=== PATIENT | female | born 1960 | race Caucasian/White ===

== ENCOUNTER 2019-06-14 14:55 | Outpatient (CLI) | payer MEDICARE, MEDICAID, SELFPAY ==
[2019-06-14 16:11] LABS: Add Urine Microscopic? NO; Appearance Urine Clear (Clear); Bilirubin Urine Negative (Negative); Blood Urine Negative (Negative); Color Urine Straw (Yellow); Glucose Urine UA Negative (Negative); Ketones Urine Negative (Negative); Leukocyte Esterase Ur Negative LEU/UL (Negative); Nitrate Urine Negative (Negative); Protein Urine Negative (Negative); Specific Grav Ur 1.008 (1.001-1.035); Urobilinogen Urine Negative mg/dL (<2.0)
== END 2019-06-14 14:56 | disposition home or self-care (01) ==
LOC: ANHLAB 15:02
PROVIDERS: PCP Internal Medicine; Visit Provider Nurse Practitioner
DX: R30.0 Dysuria (principal)
CPT/HCPCS: 81003

== ENCOUNTER 2019-08-09 17:01 | Outpatient (CLI) | payer MEDICARE, MEDICAID, SELFPAY ==
[2019-08-09 18:30] LABS: Amphetamine Screen Urine Negative (Negative); Barbiturate Screen Urine Negative (Negative); Benzodiazepines Screen Urine Negative (Negative); Cannabinoid Screen Urine Negative (Negative); Cocaine Screen Urine Negative (Negative); Methadone Screen Urine Negative (Negative); Opiate Screen Urine Positive (Negative); Phencyclidine Screen Urine Negative (Negative)
== END 2019-08-09 17:02 | disposition home or self-care (01) ==
PROVIDERS: PCP Internal Medicine; Visit Provider Nurse Practitioner
DX: Z79.899 Other long term (current) drug therapy (principal)
CPT/HCPCS: 80307

== ENCOUNTER 2019-09-13 14:10 | Outpatient (CLI) | payer MEDICARE, MEDICAID, SELFPAY ==
--- NOTE | ~2019-09-13 | US_ITS ---
EXAMINATION: US arterial ankle brachial ind DATE: 09/13/2019 15:03 INDICATION: Vomiting and tingling, pain and atrophic change of the lower extremities. Smoker. TECHNIQUE: Segmental pressures and plethysmographic and Doppler waveforms of the brachial and lower e xtremity arteries were obtained. COMPARISON: None. FINDINGS: Right and left brachial artery pressures of 109 mm Hg and 101 mm Hg, respectively, are concordant (no rmal difference <= 30 mmHg). The right ankle-brachial index (DARLEEN) is 1.13 (normal >= 0.9-1.0). The right great toe-brachial index (TBI) is 1.03 (normal >= 0.65). Arterial Doppler waveforms are biphasic. The left DARLEEN is 1.29. The left TBI is 0.88. Arterial Doppler waveforms are biphasic. IMPRESSION: Bilateral normal DARLEEN and TBI Reviewed, dictated and finalized at [facility]. Reviewed, dictated and finalized at location B.
== END 2019-09-13 14:11 | disposition home or self-care (01) ==
LOC: ANHIMG 14:12
PROVIDERS: PCP Internal Medicine; Visit Provider Nurse Practitioner
DX: R09.89 Other specified symptoms and signs involving the circulatory and respiratory systems (principal)
CPT/HCPCS: 93922

== ENCOUNTER 2020-02-06 06:54 | Outpatient (NON) | payer MEDICARE, MEDICAID, SELFPAY ==
[2020-02-06 22:31] LABS: SARS-CoV-2 RNA PCR Negative
== END 2020-02-06 06:55 ==
LOC: ANHCOVIDDT 07:03
PROVIDERS: PCP Internal Medicine; Visit Provider Nurse Practitioner
DX: R05 Cough (principal); Z20.828 Contact with and (suspected) exposure to other viral communicable diseases
CPT/HCPCS: 87635; C9803; U0003

== ENCOUNTER 2020-03-07 12:25 | Outpatient (CLI) | payer MEDICARE, MEDICAID, SELFPAY ==
--- NOTE | ~2020-03-07 | XR_ITS ---
EXAMINATION: XR chest 2V DATE: 03/07/2020 12:41 INDICATION: Cough TECHNIQUE: PA and lateral views of the chest are obtained. COMPARISON: 02/28/2015 FINDINGS: The lungs are free of acute opacities. A calcified nodule of the right lung is consistent w ith old granulomatous disease. There is no pleural effusion or pneumothorax. The cardiomediastinal si lhouette is normal. There is mild thoracic spondylosis. IMPRESSION: 1. No acute cardiopulmonary abnormality. Reviewed, dictated and finalized at location A. 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
== END 2020-03-07 12:26 | disposition home or self-care (01) ==
LOC: ANHIMG 12:29
PROVIDERS: PCP Internal Medicine; Visit Provider Nurse Practitioner
DX: R05 Cough (principal)
CPT/HCPCS: 71046

== ENCOUNTER 2020-07-14 14:41 | Observation (INO) | payer MEDICARE, MEDICAID, SELFPAY ==
[2020-07-14] VITALS (32 sets, daily range): BP systolic 122–144; BP diastolic 68–93; PULSE 74–99; RESP 14–27; TEMP 36.4–37.4; O2SAT 91–100; BMI 19.2
--- NOTE | ~2020-07-14 | US_ITS ---
EXAMINATION: US paracentesis abd w/image DATE: 07/15/2020 12:46 INDICATION: Ascites. TECHNIQUE: The procedure and its risks and benefits were discussed with the patient. Potential risks discussed included bleeding and infection. The skin was prepped and draped in sterile fashion. 1% lid ocaine was used for local anesthesia. Under ultrasound guidance, a 5 Fr catheter with trochar was adv anced into the ascites in the left lower quadrant. Fluid was aspirated into vacuum bottles. The jennifer ter was removed, and a dressing was applied. There were no immediate complications. FINDINGS: Ultrasound images demonstrate ascites and the catheter within the fluid. IMPRESSION: 1. Successful ultrasound-guided paracentesis yielding 3800 mL of cloudy yellow fluid. Reviewed, dictated and finalized at location A.
[2020-07-14 15:03] LABS: Basophils Absolute Auto 0.1 K/mm3 (0.0-0.1); Basophils Percent Auto 0.6 % (0.2-1.2); Eosinophils Absolute Auto 0.2 K/mm3 (0-0.3); Eosinophils Percent Auto 1.7 % (0-4.4); Hematocrit 37.7 % (37.0-47.0); Hemoglobin 12.3 g/dL (12.0-15.0); Immature Granulocyte Absolute 0.03 K/mm3 (0.00-0.031); Immature Granulocyte Percent A 0.3 % (0-0.5); Lymphocytes Absolute Auto 1.51 K/mm3 (0.9-3.2); Lymphocytes Percent Auto 14.8 % (18.3-44.2); Mean Corpuscular HGB Conc 32.6 g/dl (32-36); Mean Corpuscular Volume 101.1 fl (80-100); Mean Platelet Volume 8.9 fl (7.4-10.4); Monocytes Percent Auto 9.5 % (2.6-8.5); Neutrophils Absolute Auto 7.5 K/mm3 (1.3-6.7); Neutrophils Percent Auto 73.1 % (45.5-73.1); Platelet Count Result 334 k/mm3 (150-375); Red Blood Count 3.73 M/mm3 (4.2-5.4); Red Cell Distribution Width 13.9 % (11.5-14.5); White Blood Count 10.2 K/mm3 (4.5-10.0)
[2020-07-14 15:11] LABS: INR 1.7; Prothrombin Time 20.6 Seconds (11.1-14.7)
[2020-07-14 15:12] LABS: Alanine Aminotransferase 14 U/L (4-35); Albumin Level 3.1 g/dL (3.5-5.1); Alkaline Phosphatase 93 U/L (38-126); Anion Gap 1 mmol/L (8-16); Aspartate Amino Transferase 40 U/L (14-36); Bilirubin,Total 0.6 mg/dL (0.2-1.3); Blood Urea Nitrogen 13 mg/dL (7-17); Calcium 8.4 mg/dL (8.4-10.2); Carbon Dioxide 27 mmol/L (22-30); Chloride 102 mmol/L (98-107); Estimated CRCL calculation 58 ml/min; Estimated Glomerular Filt Rate > 60; Glucose 108 mg/dL (65-105); Lipase 586 U/L (23-300); Partial Thromboplastin Time 34.1 SECONDS (22.3-36.8); Potassium 4.4 mmol/L (3.4-5.0); Sodium 130 mmol/L (137-145)
--- NOTE | 2020-07-14 16:51 | ED.ABDPAIN ---
HPI - Abdominal Pain General Chief Complaint: Abdominal Pain Stated Complaint: ascites Time Seen by Provider: 07/14/20 16:17 Source: patient and RN notes reviewed Mode of arrival: ambulatory Limitations: no limitations History of Present Illness HPI narrative: Patient 60 years old white female presented to the ED with diffuse abdominal pain. History of alcoholic liver cirrhosis with ascites, was hospitalized at [facility] and got discharged on July 05 for the same symptoms. Patient is telling me that she underwent abdominocentesis, 4 L of fluid. Patient denies any fever, chills, vomiting, respiratory symptoms or urinary symptoms. Patient MD elicited complaint: abdominal pain Related Data Home Medications Medication Instructions Recorded Confirmed linaclotide 72 mcg capsule 72 mcg PO DAILY 06/04/19 06/10/20 propranolol 60 mg capsule,24 60 mg PO DAILY 06/10/20 06/10/20 hr,extended release Allergies Allergy/AdvReac Type Severity Reaction Status Date / Time No Known Allergies Allergy Mild Verified 06/04/19 13:37 Review of Systems Review of Systems: Narrative: CONSTITUTIONAL: Denies fever, chills, or sweats. EYES: Denies visual changes, redness, or discharge. ENT: Denies rhinorrhea, congestion, sore throat, or otalgia. CARDIOVASCULAR: Denies chest pain, palpitations, or edema. RESPIRATORY: Denies cough or dyspnea. GASTROINTESTINAL: Abdominal pain GENITOURINARY: Denies dysuria or hematuria. SKIN: Denies rash or itching. MUSCULOSKELETAL: Denies back pain, joint pain, or myalgia. NEUROLOGIC: Denies headache, numbness, or weakness. PSYCHIATRIC: Denies anxiety or depression. [facility] Past Medical History Medical History Alcoholism Anemia Anxiety Chlamydia Cirrhosis of liver Colonoscopy planned 2014 Depression Gall stones GERD (gastroesophageal reflux disease) Hypertension Hyponatremia Insomnia Migraine Neuropathy Normal endoscopy 2014 Thyroid disease Surgical History Surgical History H/O breast augmentation H/O dilation and curettage H/O tubal ligation BL Family History Family History Mother Patient's mother is in good health Cerebrovascular accident Father Family history of heart disease in male family member before age 55 Social History Social History Smoking packs per day: 0.75 Smoking cigarettes per day: 15.0 Smoking status: Current every day smoker Second hand tobacco smoke exposure: Yes Alcohol intake: current Gender identity (if verbalized by the patient): Female Exam Narrative: Exam Narrative: General appearance: Well-developed, well-nourished Skin: Normal color Head: Normocephalic, nontraumatic Eyes: Clear conjunctiva ENT: Oropharynx normal, ears normal, nose normal Neck: Supple, nontender Chest and respiratory: Airway patent, no respiratory distress, no accessory muscle use Heart: Regular rate/rhythm Abdomen: Large distended abdomen, large ascites, diffusely tender Vascular: Normal peripheral pulses, normal capillary refill. Musculoskeletal: Normal range of motion, nontender back Neurologic: Alert and oriented ?3, 3RD MATE is normal as tested, no gross motor deficit Course Course Emergency Course: Stable Consultations Consultation #1: Dr. Poep Date: 07/14/20 Time: 18:11 Vital Signs Vital signs: Vital Signs Temperature 36.4 C 07/14/20 14:50 Pulse Rate 90 07/14/20 14:50 Respiratory Rate 16 07/14/20 14:50 Blood Pressure 144/91 H 07/14/20 14:50 Pulse Oxi
[2020-07-14 17:11] LABS: Ammonia < 9 umol/L (9-30)
[2020-07-14 17:16] LABS: Add Urine Microscopic? YES; Appearance Urine Cloudy (Clear); Bilirubin Urine Negative (Negative); Blood Urine Negative (Negative); Color Urine Yellow (Yellow); Glucose Urine UA Negative (Negative); Ketones Urine Negative (Negative); Leukocyte Esterase Ur Trace LEU/UL (Negative); Mucus Urine Rare /lpf; Nitrate Urine Negative (Negative); Protein Urine Negative (Negative); Squamous Epithelial Cell Urine Many /hpf (Few); Urobilinogen Urine Negative mg/dL (<2.0); WBC Urine 0-3 /hpf
[2020-07-14 17:17] LABS: Specific Grav Ur 1.031 (1.001-1.035)
[2020-07-14] MEDS: MORPHINE SULFATE (*CRX) 4 MG/ML INJ IV PUSH ×2 (18:03→21:12)
[2020-07-14] MEDS: ONDANSETRON INJ 4 MG/2 ML VIAL IV PUSH (18:03)
--- NOTE | 2020-07-14 20:15 | ADMGEN ---
This patient, Ace Carl, was admitted to Medical Room 345-. Patient/family oriented to hospital policies and general routines including ID bracelet, bed and alarms, visiting hours, pain management, procedures, bathroom and other care routines, personal items, smoking policy, room service/diet, and visiting hours. Information on how to activate the Rapid Response Team has been discussed. Patient/Family are encouraged to report perceived risks to care and to ask questions if they do not understand what they are told or what they should do.
--- NOTE | 2020-07-14 21:20 | PM.IMHP ---
H&P: HPI History of Present Illness Date/Time: 07/14/20 21:20 Chief Complaint: Increased abdominal girth Narrative: This is a 60 year old female with past medical history significant for portal hypertension, hepatic cirrhosis, ascites, multiple paracentesis. Patient had paracentesis done about a week ago she comes back due to fluid reaccumulation in her peritoneal cavity with abdominal distension abdominal pain. Patient also complains of early satiety, no fevers no rigors no chills no nausea no vomiting no shortness of breath no cough no sputum production she has bilateral lower extremity numbness and tingling sensation. She also has noticed a weight loss of roughly a 8 lb due to early satiety and being unable to eat well. Patient has been placed in observation poor for paracentesis. Review of Systems Review of Systems: Narrative: Patient presented to the emergency room with increased abdominal girth and pain early satiety weight loss also bilateral lower extremity swelling and weeping Constitutional: Constitutional: Denies chills, Denies fever(s), Reports poor appetite and Denies weakness Eyes: Eyes: Denies change in vision ENT: Denies nasal congestion and Denies nasal discharge Cardiovascular: Cardiovascular: Denies irregular heart rhythm, Denies lightheadedness, Denies radiating jaw, neck or arm pain, Denies palpitations and Denies dyspnea Respiratory: Respiratory: Denies chest congestion, Denies cough, Denies dyspnea and Denies wheezing Gastrointestinal: Gastrointestinal: Reports abdominal pain, Denies dyspepsia, Denies nausea, Denies vomiting and Reports other (Increased abdominal girth) Genitourinary: Genitourinary: Denies dysuria Musculoskeletal: Musculoskeletal: Denies arthralgias and Denies joint swelling Integumentary/Breasts: Skin/Breast: Denies rash Neurologic: Denies focal weakness, Denies Sensory deficit (Neuro), Reports tingling and Denies weakness Endocrine: Endocrine: Denies no additional endocrine complaints Hematologic/Lymphatic: Hematologic/Lymphatic: Denies no additional hematologic/lymphatic complaints Allergic/Immunologic: Allergic/Immunologic: Denies no additional allergic/immunologic complaints [facility] Past Medical History Medical History Alcoholism Anemia Anxiety Chlamydia Cirrhosis of liver Colonoscopy planned 2014 Depression Gall stones GERD (gastroesophageal reflux disease) Hypertension Hyponatremia Insomnia Migraine Neuropathy Normal endoscopy 2014 Thyroid disease Surgical History Surgical History H/O breast augmentation H/O dilation and curettage H/O tubal ligation BL Family History Family History Mother Patient's mother is in good health Cerebrovascular accident Father Family history of heart disease in male family member before age 55 Social History Social History Smoking packs per day: 1 Smoking cigarettes per day: 20.0 Years smoked: 20 Smoking pack-years: 20.00 Smoking status: Current every day smoker Tobacco type: cigarettes Second hand tobacco smoke exposure: Yes Alcohol intake: former Substance use: never Gender identity (if verbalized by the patient): Female Spiritual care concerns: No Meds Home Medications and Allergies Home Medications Medication Instructions Recorded Confirmed Type linaclotide 72 mcg capsule 72 mcg PO DAILY 06/04/19 07/14/20 History spironolactone 50 mg tablet 50 mg PO DAILY #90 tablet 02/27/20 07/14/20 Rx cholecalciferol (vitamin D3) 50 2,000 unit PO DAILY #30 cap 03/03/20 07/14/20 Rx mcg (2,000 unit) capsule alendronate 70 mg tablet 70 mg PO WEEKLY #12 tablet 05/12/20 07/14/20 Rx gabapentin 300 mg capsule 300 mg PO TID #90 cap 05/14/20 07/14/20 Rx gabapentin 600 mg tablet 600 mg PO TID #90 tablet 0
[2020-07-14] MEDS: GABAPENTIN 300 MG CAPSULE 900 MG PO (22:06)
[2020-07-14] MEDS: ALBUMIN HUMAN 25% 25 GM/100 ML 200 ML IVPB (22:06)
[2020-07-14 22:25] LABS: Albumin Level 3.2 g/dL (3.5-5.1)
[2020-07-15] MEDS: MORPHINE SULFATE (*CRX) 4 MG/ML INJ IV PUSH ×3 (01:00→11:56)
[2020-07-15 06:15] VITALS: BP 107/69; PULSE 90; RESP 18; TEMP 36.6; O2SAT 98
[2020-07-15] MEDS: ALBUMIN HUMAN 25% 25 GM/100 ML 200 ML IVPB ×2 (06:26→13:05)
[2020-07-15 08:03] VITALS: PULSE 90
[2020-07-15] MEDS: PROPRANOLOL HCL 20 MG TABLET PO (08:03)
[2020-07-15] MEDS: CHOLECALCIFEROL 1,000 UNITS TABLET 2000 UNITS PO (08:03)
[2020-07-15] MEDS: SPIRONOLACTONE 50 MG TABLET PO (08:03)
[2020-07-15] MEDS: PANTOPRAZOLE 40 MG TABLET PO (08:04)
[2020-07-15 08:30] VITALS: PULSE 73; O2SAT 91
[2020-07-15 08:57] LABS: Hematocrit 27.9 % (37.0-47.0); Hemoglobin 9.1 g/dL (12.0-15.0); Mean Corpuscular HGB Conc 32.6 g/dl (32-36); Mean Corpuscular Hemoglobin 32.4 pg (26-34); Mean Corpuscular Volume 99.3 fl (80-100); Mean Platelet Volume 9.5 fl (7.4-10.4); Platelet Count Result 190 k/mm3 (150-375); Red Blood Count 2.81 M/mm3 (4.2-5.4); Red Cell Distribution Width 13.9 % (11.5-14.5); White Blood Count 6.8 K/mm3 (4.5-10.0)
[2020-07-15] MEDS: GABAPENTIN 300 MG CAPSULE 900 MG PO ×2 (09:04→13:04)
[2020-07-15] MEDS: FOLIC ACID 1 MG TABLET PO (09:04)
[2020-07-15 09:10] LABS: Alanine Aminotransferase 9 U/L (4-35); Albumin Level 3.4 g/dL (3.5-5.1); Alkaline Phosphatase 60 U/L (38-126); Anion Gap 7 mmol/L (8-16); Aspartate Amino Transferase 24 U/L (14-36); Bilirubin,Total 0.8 mg/dL (0.2-1.3); Blood Urea Nitrogen 12 mg/dL (7-17); Calcium 8.4 mg/dL (8.4-10.2); Carbon Dioxide 26 mmol/L (22-30); Chloride 102 mmol/L (98-107); Estimated CRCL calculation 63 ml/min; Estimated Glomerular Filt Rate > 60; Glucose 90 mg/dL (65-105); Lipase 304 U/L (23-300); Sodium 135 mmol/L (137-145)
--- NOTE | 2020-07-15 12:03 | PC.NURSE ---
Pt to US per stretcher.
[2020-07-15 12:05] VITALS: BMI 18.8
--- NOTE | 2020-07-15 12:51 | PM.IMPN ---
Progress Note: A&P Assessment and Plan (1) Abdominal ascites: Qualifiers: Ascites type: due to alcoholic cirrhosis Qualified Code(s): K70.31 - Alcoholic cirrhosis of liver with ascites Code(s): R18.8 - Other ascites Status: Acute Assessment and Plan: -patient was diagnosed with liver failure/ascites in 2007 and has been doing well since then up until May of this year -she says she uses dash supplement and complies with a low salt diet -she takes spironolactone a home and does not drink Etoh -[place] she states it re-accumulated pretty immediately -She has not seen a GI doctor in years -obtain records, paracentesis ordered, GI consulted -no infection suspected -May need adjustment in diuretics -albumin ordered Q8 hours (2) Abdominal pain: Qualifiers: Abdominal location: left upper quadrant Qualified Code(s): R10.12 - Left upper quadrant pain Code(s): R10.9 - Unspecified abdominal pain Status: Acute Assessment and Plan: Secondary to above (3) Cirrhosis of liver: Qualifiers: Ascites presence: with ascites Hepatic cirrhosis type: alcoholic cirrhosis Qualified Code(s): K70.31 - Alcoholic cirrhosis of liver with ascites Code(s): K74.60 - Unspecified cirrhosis of liver Status: Acute Assessment and Plan: As above (4) Neuropathy: Code(s): G62.9 - Polyneuropathy, unspecified Status: Acute Assessment and Plan: Continue gabapentin (5) Hypertension, portal: Code(s): K76.6 - Portal hypertension Status: Acute Assessment and Plan: Continue propanolol (6) Tobacco abuse: Code(s): Z72.0 - Tobacco use Status: Acute Assessment and Plan: Nicotine patch as needed Additional Plan Will speak with Radiology further recommendations on when to restart Eliquis (patient's history of DVT) Time Spent With Patient Time with patient: 25 - 35 minutes Subjective Date/time seen: 07/15/20 12:51 Interval history: Pt is a 60 y/o female here for acute on chronic ascites due to cirrhosis. Patient states that she was diagnosed with liver failure back in 2007 and battled with ascites for a few months during that time but then did well. Last year she was taken off her diuretics by her primary care physician because of her electrolytes. She was in her normal state of health and not fluid overloaded until May/ june of this year when she started becoming more bloated. She had a paracentesis July 03 or and within a week she was fluid overloaded again. She reports not taking any diuretics however he spironolactone is on her home medications and was filled 05/23/20. Patient is unable to take a deep breath due to abdominal distension but does not have any real shortness of breath or chest pain. She has not had any hematemesis or black stool. Review of Systems Review of Systems: All systems reviewed & are unremarkable except as noted in HPI and below Exam Narrative: Exam Narrative: General: Well developed well nourished patient in NAD HEENT: normocephalic Neck: supple Neuro: Alert and oriented x4 CV:RRR Resp: Mild crackles at the bases, no wheezing or rhonchi Abd: Protuberant abdomen with pain to palpation. + bowel sounds. Extremities: No swelling, erythema, or pain to palpation. Objective Data Vital Signs Vital Signs: Vital Signs - 24 hr 07/14/20 14:50 07/14/20 15:51 07/14/20 15:52 Temperature 97.6 F Pulse Rate 90 82 Respiratory Rate 16 20 20 Blood Pressure 144/91 H 129/89 Pulse Oximetry 98 94 98 07/14/20 16:00 07/14/20 16:01 07/14/20 16:05 Temperature Pulse Rate 82 86 Respiratory Rate 20 18 16 Blood Pressure 129/83 122/68 Pulse Oximetry 99 98 99 07/14/20 16:15 07/14/20 16:16 07/14/20 16:30 Temperature Pulse Rate 80 83 Respiratory Rate 21 H 19 18 Blood Pressure
--- NOTE | 2020-07-15 13:02 | WPDGICN ---
Assessment and Plan Assessment and plan (1) Abdominal ascites: Qualifiers: Ascites type: due to alcoholic cirrhosis Qualified Code(s): K70.31 - Alcoholic cirrhosis of liver with ascites Code(s): R18.8 - Other ascites Status: Acute Assessment and Plan: just underwent paracentesis, pending fluid studies to rule out sbp but abdominal exam benign, she is feeling much better ok to start low dose of lasix and aldactone, monitor electrolytes and renal function as outpatient next week and she will need follow-up with her production planning manager (already established at [facility]) instructed to continue 2g Na diet she can go home later today (2) Cirrhosis of liver: Qualifiers: Ascites presence: with ascites Hepatic cirrhosis type: alcoholic cirrhosis Qualified Code(s): K70.31 - Alcoholic cirrhosis of liver with ascites Code(s): K74.60 - Unspecified cirrhosis of liver Status: Acute Assessment and Plan: she says that from previous alcohol use MELD score is low ~12 (3) Esophageal varices in alcoholic cirrhosis: Code(s): K70.30 - Alcoholic cirrhosis of liver without ascites; I85.10 - Secondary esophageal varices without bleeding Status: Acute Assessment and Plan: per patient, had EGD 1 year ago follow-up with her production planning manager no recent GIB (4) Chronic anemia: Code(s): D64.9 - Anemia, unspecified Status: Acute Assessment and Plan: stable GI Consult Note Consult date/time: 07/15/20 13:02 Reason for consult: ascites, cirrhosis HPI: Ace Carl is a 60 year old female with decompensated alcoholic cirrhosis diagnosed 5-6 years ago when she required her first paracentesis at another hospital. She quit drinking few years ago and has not required paracentesis until 1.5 week ago at [facility]. She says that her doctor discontinued her water pills because electrolyte abnormality. She also had EGD at [facility] with banding but denies history of GIB (she has seen hepatology in [facility] as outpatient 2 times) and her regular GI doctor is Woody Mercer in [place]. She is here with increase abdominal girth and discomfort. Today underwent paracentesis by IR and removed ~ 3.5L, she is feeling much better and denies pain. She is feeling like going home. Denies nausea, fever, chills. Review of Systems Constitutional: Constitutional: Denies chills Eyes: Eyes: Denies blurry vision ENT: Reports Normal hearing present Cardiovascular: Cardiovascular: Denies chest pain Respiratory: Respiratory: Denies dyspnea Gastrointestinal: Gastrointestinal: Reports bloating, Denies nausea and Denies vomiting Genitourinary: Genitourinary: Denies hematuria Musculoskeletal: Musculoskeletal: Denies neck pain Integumentary/Breasts: Skin/Breast: Denies dry skin Neurologic: Reports system reviewed and no additional complaints, except as documented Psychiatric: Psychiatric: Reports no additional psychiatric complaints [facility] Past Medical History Medical History (Updated 07/15/20 @ 13:08 by Matt Modi MD) Alcoholism Anemia Anxiety Chlamydia Chronic anemia Cirrhosis of liver Colonoscopy planned 2014 Depression Esophageal varices in alcoholic cirrhosis Gall stones GERD (gastroesophageal reflux disease) Hypertension Hyponatremia Insomnia Migraine Neuropathy Normal endoscopy 2014 Thyroid disease Surgical History Surgical History H/O breast augmentation H/O dilation and curettage H/O tubal ligation BL Family History Family History Mother Patient's mother is in good health Cerebrovascular accident Father Family history of heart disease in male family member before age 55 Social History Social History Smoking packs per day: 1 Smoking cigarettes per day: 20.0 Years smoked: 20 Smoking
--- NOTE | 2020-07-15 14:13 | PM.DS ---
DS: Admitting Diagnosis Admitting Diagnosis Admitting Diagnosis: ascites DS: Discharge Diagnosis Discharge Diagnosis (1) Abdominal ascites: Qualifiers: Ascites type: due to alcoholic cirrhosis Qualified Code(s): K70.31 - Alcoholic cirrhosis of liver with ascites Code(s): R18.8 - Other ascites Status: Acute Assessment and Plan: -patient was diagnosed with liver failure/ascites in 2007 and has been doing well since then up until May of this year -she says she uses dash supplement and complies with a low salt diet -she takes spironolactone a home and does not drink Etoh -her last paracentesis was July 03 or in [place] but she states it re-accumulated pretty immediately -She has not seen a GI doctor in years but sees one at [facility] -no infection suspected -lasix added to regimen. Will need BMP in one week and f/u with pcp to ensure no electrolyte abnormalities -pt underwent paracentesis 07/15/20 which yielded 3800 ml of cloudy yellow fluid (2) Abdominal pain: Qualifiers: Abdominal location: left upper quadrant Qualified Code(s): R10.12 - Left upper quadrant pain Code(s): R10.9 - Unspecified abdominal pain Status: Acute Assessment and Plan: improved, 2/2 to above (3) Cirrhosis of liver: Qualifiers: Ascites presence: with ascites Hepatic cirrhosis type: alcoholic cirrhosis Qualified Code(s): K70.31 - Alcoholic cirrhosis of liver with ascites Code(s): K74.60 - Unspecified cirrhosis of liver Status: Acute Assessment and Plan: As above (4) Neuropathy: Code(s): G62.9 - Polyneuropathy, unspecified Status: Acute Assessment and Plan: Continue gabapentin (5) Hypertension, portal: Code(s): K76.6 - Portal hypertension Status: Acute Assessment and Plan: Continue propanolol (6) Tobacco abuse: Code(s): Z72.0 - Tobacco use Status: Acute Assessment and Plan: Nicotine patch as needed DS: Summary Hospital Course Hospital Course: Pt is a 60 y/o with a hx of alcoholic cirrhosis who presented to the ED for abdominal distension and pain. Patient states that she was diagnosed with liver failure back in 2007 and battled with ascites for a few months during that time but then did well. Last year she was taken off her diuretics by her primary care physician because of her electrolytes. She was in her normal state of health and not fluid overloaded until May/ june of this year when she started becoming more bloated. She had a paracentesis July 03 or and within a week she was fluid overloaded again which is why she came in to the Ed. She had no fevers or signs of acute abdominal signs. On admission to the ER her hgb was 12.3 but dropped to 9.1 likely due to lab variation and inflation at admission since a repeat h&h later in the day prior to discharge was 9.7 and she had no signs or symptoms of bleeding. She underwent a paracentesis 07/15 which yielded 3800ml of yellow fluid. After her procedure she really wanted to go home as her and her family take care of her mother and the other helper had just had a stroke. Bp 96/60 but pt is asymptomatic with no CP, dizziness, or lightheadedness. She agreed to get repeat labs in one week and f/u with pcp and her GI doctor. She saw the GI doctor whle here and received albumin and lasix was added to her daily medications. She needs repeat bmp in one week and a repeat blood pressure during her pcp follow up. She was instructed to restart eliquis tomorrow prior to bed. Pt was educated about the worrisome sign and symptoms to come back to the ER for and was discharged in stable condition. Status at Discharge Functional status at discharge: independent ambulation Overall status at discharge: patient is progressing back to baseline Time Spent with Patient Time attestation: Total time spent providing and/or coordinating discha
[2020-07-15 14:45] LABS: Hematocrit 29.8 % (37.0-47.0); Hemoglobin 9.7 g/dL (12.0-15.0)
[2020-07-15 14:47] VITALS: BP 96/60; PULSE 59; RESP 16; TEMP 36.7; O2SAT 97
[2020-07-19 17:45] LABS: Glucose Peritoneal Fluid 97 mg/dL; Total Protein Peritoneal Fluid <3.0 g/dL
[2020-07-20 21:55] LABS: Albumin Peritoneal Fluid 0.6 g/dL
--- NOTE | 2020-07-25 13:00 | PC.NURSE ---
Peritoneal fluid Albimin, Glucose and Protein WNL.
== END 2020-07-15 15:55 | disposition home or self-care (01) ==
LOC: ANHED 18:11 → ANH3MED 20:48
PROVIDERS: Emergency Medicine; Admitting Provider Family Medicine; Emergency Provider Emergency Medicine; PCP Internal Medicine; Visit Provider Physician Assistant
DX: K70.31 Alcoholic cirrhosis of liver with ascites (principal); I10 Essential (primary) hypertension; K76.6 Portal hypertension; D64.9 Anemia, unspecified; I85.10 Secondary esophageal varices without bleeding; K21.9 Gastro-esophageal reflux disease without esophagitis; G62.9 Polyneuropathy, unspecified; F41.8 Other specified anxiety disorders; F10.20 Alcohol dependence, uncomplicated; F17.210 Nicotine dependence, cigarettes, uncomplicated; Z79.01 Long term (current) use of anticoagulants
CPT/HCPCS: 36415; 49083; 80053; 81001; 82040; 82042; 82140; 82945; 83690; 84157; 85014; 85018; 85025; 85027; 85610; 85730; 96365; 96366; 96375; 96376; 99285; A9270; G0378; J2270; J2405; P9047

== ENCOUNTER 2020-07-25 13:24 | Observation (INO) | payer MEDICARE, MEDICAID, SELFPAY ==
[2020-07-25] VITALS (35 sets, daily range): BP systolic 117–153; BP diastolic 82–100; PULSE 76–104; RESP 0–22; TEMP 35.9–36.6; O2SAT 95–100; BMI 16.8
--- NOTE | ~2020-07-25 | US_ITS ---
EXAMINATION: US paracentesis abd w/image DATE: 07/25/2020 16:43 INDICATION: Ascites. TECHNIQUE: The procedure and its risks, benefits, and alternatives were discussed with the patient. P otential risks discussed included bleeding and infection. The skin was prepped and draped in sterile fashion. 1% lidocaine was used for local anesthesia. Under ultrasound guidance, a 5 Fr catheter with trochar was advanced into the ascites in the left lower quadrant. Fluid was aspirated. The catheter w as removed, and a dressing was applied. There were no immediate complications. FINDINGS: Ultrasound images demonstrate ascites and the catheter within the fluid. IMPRESSION: 1. Successful ultrasound-guided paracentesis yielding 1000 mL of clear, yellow fluid. Reviewed, dictated and finalized at location A.
--- NOTE | ~2020-07-25 | XR_ITS ---
EXAMINATION: XR chest 1V portable DATE: 07/25/2020 13:58 INDICATION: Shortness of breath. TECHNIQUE: A single frontal view of the chest was obtained. COMPARISON: Chest 2 views 03/07/2020 FINDINGS: There is mild atelectasis at right lung base. A calcified right lung nodule is consistent w ith old granulomatous disease. No pleural effusion or pneumothorax. The heart size is normal. IMPRESSION: 1. Mild atelectasis at right lung base. Reviewed, dictated and finalized at location A.
--- NOTE | ~2020-07-25 | CT_ITS ---
EXAMINATION: CTA chest PE abdomen pel EXAM DATE: 07/25/2020 15:35 INDICATION: Chest pain, diffuse abdominal pain. TECHNIQUE: Spiral CTA of the chest (pulmonary arteries) was performed with 100 cc Omnipaque 350 intr avenous contrast injection. Images were acquired during the pulmonary arterial phase. Coronal maxi mum intensity projection 3D-reconstructions were created by the technologist on dedicated workstation . Axial, coronal and sagittal reformatted images were reviewed. Spiral CT of the abdomen and pelvis was then performed with the same intravenous contrast injection. Axial, coronal and sagittal reform atted images were reviewed. The dose-length product (DLP) for this examination was 345.19 mGy-cm. T he exposure was tailored according to patient size (auto mA exposure control), and iterative reconst ruction (ASIR) was used as additional dose reduction technique. Compared to prior abdomen pelvis CT 08/10/2018. FINDINGS: CHEST: Pulmonary arteries are well opacified and without intraluminal filling defects. No thoracic aortic dissection. Mild emphysema. Right lower lobe granuloma. No acute airspace disease. Breast im plants. There are no pleural or pericardial effusions. Tracheobronchial tree is patent. There is no mediastinal, hilar or axillary lymphadenopathy. There is no pneumothorax. Heart normal in siz e. There is mild coronary arterial calcification, arterial sclerosis. ABDOMEN PELVIS: Nodular cirrhotic liver with moderate amount of ascites. Spleen is normal in size. Pa ncreas demonstrates a round well-defined hypodense mass measuring 2.2 cm, cannot specifically identif y this on prior study. Round well-defined appearance could indicate one of the cystic pancreatic neop lasms rather than adenocarcinoma, would favor malignant histology given this has developed. There are also pancreatic uncinate calcifications, probably indicating chronic pancreatitis. The differential diagnosis includes adenocarcinoma, pseudocyst, intraductal papillary mucinous neoplasm (IPMN), mucino us cystic neoplasm (MCN), and the less common serous cystadenoma and neuroendocrine tumor. Adrenal glands unremarkable. Gallbladder is unremarkable. No biliary obstruction. Portal and spleni c veins are patent. Kidneys enhance symmetrically. There is no hydronephrosis. Small regions bilate ral renal cortical scarring. The uterus is unremarkable. The bladder is unremarkable. There is no retroperitoneal or pelvic lymphadenopathy. There is moderate scattered arteriosclerotic disease. Sensitivity for acute abdominal process is limited due to ascites and diffuse mesenteric edema and fl uid. The appendix is identified and congenitally large, no appendicolith or acute appendicitis suspec melanie.. The stomach and small bowel are unremarkable. There is expected amount of colonic stool. No free intraperitoneal gas. There are no osteoblastic or osteolytic lesions identified. IMPRESSION: 1. Chronic pancreatitis. Interval development of pancreatic uncinate solid versus proteinaceous cyst ic mass, could be adenocarcinoma or one of the cystic pancreatic neoplasms, but would favor malignant histology. Recommend GI consult for possible EUS/FNA. 2. Cirrhosis and moderate amount of ascites limiting sensitivity for acute abdominal processes. Reviewed, dictated and finalized at location B. IMPRESSION: 1. Chronic pancreatitis. Interval development of pancreatic uncinate solid hakeem cristhian proteinaceous cystic mass, could be adenocarcinoma or one of the cystic cabrera creatic neoplasms, but would favor malignant histology. Recommend GI consult fo r possible EUS/FNA. 2. Cirrhosis and moderate amount of ascites limiting sensitivity for acute abd ominal processes.
--- NOTE | 2020-07-25 13:49 | ECG_ITS ---
Measurements Intervals [place] Rate: 95 P: 55 WV: 146 QRS: -19 QRSD: 82 T: 48 QT: 355 QTc: 448 Interpretive Statements SINUS RHYTHM WITH SINUS ARRHYTHMIA LOW QRS VOLTAGE IN LIMB LEADS CONSIDER INFERIOR INFARCT, AGE INDETERMINATE BORDERLINE ST-T WAVE ABNORMALITY- ANTERIOR LEADS ABNORMAL ECG Electronically Signed On 07-25-2020 14:53:01 CDT by Steven Nguyen D.O.
--- NOTE | 2020-07-25 13:51 | ED.ABDPAIN ---
HPI - Abdominal Pain General Chief Complaint: Abdominal Pain Stated Complaint: Liver Issues-Ascites Time Seen by Provider: 07/25/20 13:40 Source: patient and RN notes reviewed Mode of arrival: ambulatory Limitations: no limitations History of Present Illness HPI narrative: This is a 60 year old female with history of alcoholic cirrhosis with ascites who presents for evaluation of nausea, vomiting and abdominal pain. She reports diffuse abdominal pain with intermittent sharp pain for 5 days. She developed nausea and vomiting yesterday. She reports bilious emesis and she denies hematemsis. She denies diarrhea, fever or chills. She reports she has a biomedical engineering professor at [facility] but she has not seen that doctor in at least 9 months. She was admitted to pep approximately 10 days ago for therapeutic paracentesis. She reports her abdomen has accumulated. She also notes she was diagnosed with a right calf DVT 3 weeks ago in [facility]. Related Data Home Medications Medication Instructions Recorded Confirmed linaclotide 72 mcg capsule 72 mcg PO DAILY 06/04/19 07/25/20 Eliquis 5 mg PO BID 07/14/20 07/25/20 pantoprazole 40 mg PO DAILY 07/14/20 07/25/20 propranolol 20 mg PO BID 07/14/20 07/25/20 Allergies Allergy/AdvReac Type Severity Reaction Status Date / Time No Known Allergies Allergy Mild Verified 07/25/20 18:35 Review of Systems Review of Systems: All systems reviewed & are unremarkable except as noted in HPI and below PMFSH Past Medical History Medical History Alcoholism Anemia Anxiety Chlamydia Chronic anemia Cirrhosis of liver Colonoscopy planned 2014 Depression Esophageal varices in alcoholic cirrhosis Gall stones GERD (gastroesophageal reflux disease) Hypertension Hyponatremia Insomnia Migraine Neuropathy Normal endoscopy 2014 Thyroid disease Surgical History Surgical History H/O breast augmentation H/O dilation and curettage H/O tubal ligation BL Family History Family History Mother Patient's mother is in good health Cerebrovascular accident Father Family history of heart disease in male family member before age 55 Social History Social History Smoking packs per day: 1 Smoking cigarettes per day: 20.0 Years smoked: 20 Smoking pack-years: 20.00 Smoking status: Heavy tobacco smoker Tobacco type: cigarettes Second hand tobacco smoke exposure: Yes Alcohol intake: never Substance use: never Gender identity (if verbalized by the patient): Female Sexual Orientation (if Verbalized by the Patient): Straight or Heterosexual Spiritual care concerns: No Exam Const: General: alert Nutritional Appearance: thin Orientation/consciousness: patient oriented x3 Eyes: EOM: EOMs intact bilaterally Chest: Chest palpation & inspection: normal inspection of the chest Resp: Effort & Inspection: normal respiratory effort and no retractions Auscultation: clear to auscultation bilaterally Cardio: Rate: regular rate Rhythm: regular rhythm Heart sounds: no murmurs GI: Inspection: distended GI Palp: Yes Soft to palpation, Yes Tenderness to palpation present (GI) (Diffuse), No Guarding due to palpation present (GI) and No Rigid due to palpation Percussion: Yes Fluid wave present Auscultation: normal bowel sounds Skin: General skin exam: normal color Rashes: no rashes Neuro: General: patient oriented x3, moves all extremities and CN's II-XI intact bilaterally Course Consultations Consultation #1: I spoke with Dr. Niko Rojas. HE is agreeable to consult in hospital. He states patient does not need to be transferred emergently for pancreatic mass. HE states she can be referred for outpatient. I also discussed with carla who accepts to hospitalist service
[2020-07-25] MEDS: SODIUM CHLORIDE 0.9% IV 500 ML 999 ML IV CONT (14:03)
[2020-07-25] MEDS: MORPHINE SULFATE (*CRX) 2 MG/ML INJ IV PUSH ×2 (14:04→17:16)
[2020-07-25] MEDS: ONDANSETRON INJ 4 MG/2 ML VIAL IV PUSH (14:04)
[2020-07-25 14:51] LABS: Basophils Percent Auto 0.6 % (0.2-1.2); Eosinophils Absolute Auto 0.1 K/mm3 (0-0.3); Eosinophils Percent Auto 1.4 % (0-4.4); Hematocrit 29.6 % (37.0-47.0); Hemoglobin 9.8 g/dL (12.0-15.0); Immature Granulocyte Absolute 0.03 K/mm3 (0.00-0.031); Immature Granulocyte Percent A 0.4 % (0-0.5); Lymphocytes Absolute Auto 2.08 K/mm3 (0.9-3.2); Lymphocytes Percent Auto 29.9 % (18.3-44.2); Mean Corpuscular HGB Conc 33.1 g/dl (32-36); Mean Corpuscular Hemoglobin 32.1 pg (26-34); Monocytes Absolute Auto 0.6 K/mm3 (0.1-0.6); Monocytes Percent Auto 9.2 % (2.6-8.5); Neutrophils Absolute Auto 4.1 K/mm3 (1.3-6.7); Neutrophils Percent Auto 58.5 % (45.5-73.1); Platelet Count Result 274 k/mm3 (150-375); Red Blood Count 3.05 M/mm3 (4.2-5.4)
[2020-07-25 14:51] LABS: Ammonia 12 umol/L (9-30)
[2020-07-25 15:01] LABS: Add Urine Microscopic? NO; Appearance Urine Clear (Clear); Bilirubin Urine Negative (Negative); Blood Urine Negative (Negative); Color Urine Yellow (Yellow); Glucose Urine UA Negative (Negative); Ketones Urine Negative (Negative); Leukocyte Esterase Ur Negative LEU/UL (Negative); Nitrate Urine Negative (Negative); Protein Urine Negative (Negative); Specific Grav Ur 1.011 (1.001-1.035); Urobilinogen Urine Negative mg/dL (<2.0)
[2020-07-25 15:01] LABS: Alanine Aminotransferase 13 U/L (4-35); Albumin Level 3.5 g/dL (3.5-5.1); Alkaline Phosphatase 85 U/L (38-126); Anion Gap 10 mmol/L (8-16); Aspartate Amino Transferase 37 U/L (14-36); Bilirubin,Total 0.5 mg/dL (0.2-1.3); Blood Urea Nitrogen 10 mg/dL (7-17); Calcium 8.5 mg/dL (8.4-10.2); Carbon Dioxide 23 mmol/L (22-30); Chloride 100 mmol/L (98-107); Estimated CRCL calculation 65 ml/min; Estimated Glomerular Filt Rate > 60; Glucose 97 mg/dL (65-105); Lipase 462 U/L (23-300); Magnesium 1.5 mg/dL (1.6-2.3); Potassium 3.2 mmol/L (3.4-5.0); Sodium 133 mmol/L (137-145)
[2020-07-25 15:10] LABS: INR 1.4; Partial Thromboplastin Time 25.8 SECONDS (22.3-36.8); Prothrombin Time 17.9 Seconds (11.1-14.7)
[2020-07-25 15:24] LABS: Lactic Acid Reflex 1.3 mmol/L (0.7-2.1)
[2020-07-25 17:37] LABS: Appearance Peritoneal Fluid Clear (Clear); Color Peritoneal Fluid Yellow (Colorless); Lymphocytes Peritoneal Fluid 28 %; Neutrophils Peritoneal Fluid 4 % (0-25); Nucleated Cells Peritoneal Flu 396 /uL (0-500); RBC Peritoneal Fluid 104 /uL (0-100000)
[2020-07-25 17:38] LABS: Eosinophils Peritoneal Fluid 0 %; Macrophages Peritoneal Fluid 54 %; Mesothelial Cells Peritoneal Fluid 14 %; Monocytes Peritoneal Fluid 0 %; Source Peritoneal Fluid Peritoneal Fluid
--- NOTE | 2020-07-25 18:28 | ADMGEN ---
This patient, Ace Carl, was admitted to [facility] Surg Room 307-01. Patient/family oriented to hospital policies and general routines including ID bracelet, bed and alarms, visiting hours, pain management, procedures, bathroom and other care routines, personal items, smoking policy, room service/diet, and visiting hours. Information on how to activate the Rapid Response Team has been discussed. Patient/Family are encouraged to report perceived risks to care and to ask questions if they do not understand what they are told or what they should do.
[2020-07-25] MEDS: LACTATED RINGERS 1,000 ML 125 ML IV CONT (18:52)
[2020-07-25] MEDS: MORPHINE SULFATE (*CRX) 4 MG/ML INJ 2 MG IV PUSH ×2 (20:17→23:39)
--- NOTE | 2020-07-25 21:33 | PM.IMHP ---
H&P: HPI History of Present Illness Date/Time: 07/25/20 21:33 this is a 60-year-old female patient who has a history of alcoholism with cirrhosis of the liver. She also has chronic pancreatitis. The patient was just discharged from here 10 days ago. She was discharged. On 07/15/20 she had a paracentesis that drained 3800 mL of yellow fluid. According to her last H&P the patient has had multiple paracentesis. The patient has a specialist in [place] but stated due to COVID precaution she has not seen her marinator. Clemente Curry says of 4 L on July 05 at an outside facility and believe it was [facility] as noted per ED provider. The patient came here to be evaluated for nausea vomiting abdominal pain today. She had diffuse abdominal pain with intermittent sharp pain for 5 days. Her nausea and vomiting started yesterday. She denies any hematemesis. She denies any fever chills. No diarrhea. She last saw her marinator 9 months ago at [facility]. The patient also was recently diagnosed with a DVT 3 weeks ago in [facility] and has been on Eliquis. The patient was sent to Interventional Radiology for paracentesis tonight. A 1000 mL Yellow fluid drained per paracentesis today. The patient stated that she does have some discomfort in her right upper quadrant. The patient stated that she is hungry and was able to tolerate a meal tonight. The patient stated that she has been compliant with her diuretics and has been eating low-salt diet. The patient had a CT of her abdomen and pelvis today that was read as chronic pancreatitis. Interval development of pancreatic uncinate solid verses protein as cystic mass, could be adeno carcinoma or 1 of the cystic pancreatic neoplasm, but would favor malignant histology. Recommend GI consult for possible EUS/FNA. Cirrhosis and moderate amount of ascites limiting sensitivity for acute abdominal process. The CT was prior to the paracentesis. GI has been consulted. The patient stated that she is now down to 95 lb and her normal weight is 115 lb. The patient is concerned about her weight loss as well. This is brought about a great anxiety for the patient as well., morphine, and IV fluids in the emergency room. It looks like she was given a dose Rocephin for the possibility of SBP. The patient is being admitted to observation status on the tissue services 07/25/2020. Chief Complaint: Abdominal pain Review of Systems Review of Systems: All systems reviewed & are unremarkable except as noted in HPI and below Constitutional: Constitutional: Reports as per HPI and Reports no additional constitutional complaints Eyes: Eyes: Reports as per HPI and Reports no additional eye complaints ENT: Reports system reviewed and no additional complaints, except as documented and Reports Normal hearing present Cardiovascular: Cardiovascular: Reports no additional cardiovascular complaints Respiratory: Respiratory: Reports no additional respiratory complaints and Reports no additional respiratory complaints Gastrointestinal: Gastrointestinal: Reports as per HPI and Reports no additional gastrointestinal complaints Musculoskeletal: Musculoskeletal: Reports no additional musculoskeletal complaints Integumentary/Breasts: Skin/Breast: Reports system reviewed and no additional complaints, except as docu and Reports as per HPI Neurologic: Reports system reviewed and no additional complaints, except as documented, Reports as per HPI and Reports Normal hearing present Psychiatric: Psychiatric: Reports no additional psychiatric complaints and Reports as per HPI Endocrine: Endocrine: Reports no additional endocrine complaints Hematologic/Lymphatic: Hematologic/Lymphatic: Reports no additional hematologic/lymphatic complaints Allergic/Immunologic: Allergic/Immunologic: Reports no additional allergic/immunologic complaints [facility] Past Medical History Medical History (Updated 07/25/20 @ 22:01 by Mery Angeles NP) [place]
[2020-07-25] MEDS: MAGNESIUM SULF 2 GM/WATER 50ML 2 GM/50 ML BAG IVPB (22:41)
[2020-07-25] MEDS: POTASSIUM CHLORIDE 20 MEQ PACKET (FOR LIQUID) 40 MEQ PO (22:42)
[2020-07-25] MEDS: PROPRANOLOL HCL 20 MG TABLET PO (22:42)
[2020-07-25] MEDS: APIXABAN 5 MG TABLET PO (22:43)
[2020-07-25] MEDS: GABAPENTIN 300 MG CAPSULE 900 MG PO (23:38)
[2020-07-25] MEDS: PANTOPRAZOLE SODIUM IV 40 MG VIAL IV PUSH (23:39)
[2020-07-26] VITALS (8 sets, daily range): BP systolic 90–112; BP diastolic 54–61; PULSE 63–65; RESP 18; TEMP 36.4; O2SAT 94–98
[2020-07-26] MEDS: MORPHINE SULFATE (*CRX) 4 MG/ML INJ 2 MG IV PUSH ×2 (03:32→06:07)
[2020-07-26 06:36] LABS: Basophils Absolute Auto 0.1 K/mm3 (0.0-0.1); Basophils Percent Auto 1.1 % (0.2-1.2); Eosinophils Absolute Auto 0.1 K/mm3 (0-0.3); Eosinophils Percent Auto 2.5 % (0-4.4); Hematocrit 28.3 % (37.0-47.0); Hemoglobin 9.5 g/dL (12.0-15.0); Immature Granulocyte Absolute 0.01 K/mm3 (0.00-0.031); Immature Granulocyte Percent A 0.2 % (0-0.5); Lymphocytes Absolute Auto 1.52 K/mm3 (0.9-3.2); Lymphocytes Percent Auto 26.9 % (18.3-44.2); Mean Corpuscular HGB Conc 33.6 g/dl (32-36); Mean Corpuscular Hemoglobin 31.9 pg (26-34); Mean Platelet Volume 9.4 fl (7.4-10.4); Monocytes Absolute Auto 0.6 K/mm3 (0.1-0.6); Monocytes Percent Auto 10.4 % (2.6-8.5); Neutrophils Absolute Auto 3.3 K/mm3 (1.3-6.7); Neutrophils Percent Auto 58.9 % (45.5-73.1); Platelet Count Result 266 k/mm3 (150-375); Red Blood Count 2.98 M/mm3 (4.2-5.4); Red Cell Distribution Width 13.9 % (11.5-14.5); White Blood Count 5.7 K/mm3 (4.5-10.0)
[2020-07-26 06:48] LABS: Alanine Aminotransferase 10 U/L (4-35); Albumin Level 2.9 g/dL (3.5-5.1); Alkaline Phosphatase 73 U/L (38-126); Anion Gap 6 mmol/L (8-16); Aspartate Amino Transferase 28 U/L (14-36); Bilirubin,Total 0.2 mg/dL (0.2-1.3); Blood Urea Nitrogen 7 mg/dL (7-17); Calcium 7.9 mg/dL (8.4-10.2); Carbon Dioxide 26 mmol/L (22-30); Chloride 100 mmol/L (98-107); Estimated CRCL calculation 58 ml/min; Estimated Glomerular Filt Rate > 60; Glucose 93 mg/dL (65-105); Lipase 345 U/L (23-300); Potassium 3.8 mmol/L (3.4-5.0); Sodium 132 mmol/L (137-145)
[2020-07-26 06:50] LABS: INR 1.4; Prothrombin Time 17.7 Seconds (11.1-14.7)
[2020-07-26] MEDS: PANTOPRAZOLE 40 MG TABLET PO (09:03)
[2020-07-26] MEDS: NICOTINE (*PBKC) 21 MG PATCH 1 PATCH TRANSDERM (09:03)
[2020-07-26] MEDS: CHOLECALCIFEROL 1,000 UNITS TABLET 2000 UNITS PO (09:03)
[2020-07-26] MEDS: SPIRONOLACTONE 50 MG TABLET PO (09:04)
[2020-07-26] MEDS: GABAPENTIN 300 MG CAPSULE 900 MG PO (09:04)
[2020-07-26] MEDS: APIXABAN 5 MG TABLET PO (09:04)
[2020-07-26] MEDS: HYDROcodone/acetaminophen (*CRX) 5-325 MG TABLET 1 TAB PO (11:33)
--- NOTE | 2020-07-26 11:48 | PM.DS ---
DS: Admitting Diagnosis Admitting Diagnosis Admitting Diagnosis: Abdominal pain, cirrhosis DS: Discharge Diagnosis Discharge Diagnosis (1) Alcoholic cirrhosis of liver with ascites: Code(s): K70.31 - Alcoholic cirrhosis of liver with ascites Status: Acute Assessment and Plan: Date of Admission 07/25/20 Date of Discharge 07/26/20 Ms. Carl is a 60yo F with known cirrhosis and recurrent ascites, hypertension, DVT, chronic anemia who presented to the ED for evaluation of nausea and vomiting and abdominal distention x [address] demonstrated chronic pancreatitis and a 2.2cm mass on her pancreas along with cirrhosis and moderate amount of ascites. She underwent ultrasound-guided paracentesis 07/25 yielding 1 L of clear yellow fluid. The following morning she is feeling well and eager for discharge. She is tolerating meals without nausea, vomiting or abdominal pain and she is hemodynamically stable for discharge. Recent DVT to lower extremity patient describes diagnosed at a different hospital around 3 weeks ago and remains on Eliquis. She has a tire servicer, Dr Mercer, at [facility] and a team guide at [facility]. She describes she recently had a virtual visit with Dr Mercer. She is encouraged to follow up with both of these specialists as soon as possible, given her recurrent ascites requiring multiple paracenteses as well as the fact she will benefit from an endoscopic ultrasound for further evaluation of the pancreatic mass, and that testing is not available at our facility. She verbalizes understanding. She is educated on a low sodium diet and encouraged to continue taking her diuretics as prescribed and to call Dr Mercer's office if her belly becomes distended. (2) Neuropathy: Code(s): G62.9 - Polyneuropathy, unspecified Status: Acute Assessment and Plan: Continue with her gabapentin. (3) Hypertension, portal: Code(s): K76.6 - Portal hypertension Status: Acute Assessment and Plan: Continue with Lasix and propranolol (4) DVT (deep venous thrombosis): Code(s): I82.409 - Acute embolism and thrombosis of unspecified deep veins of unspecified lower extremity Status: Acute Assessment and Plan: Continue with Eliquis (5) Chronic anemia: Code(s): D64.9 - Anemia, unspecified Status: Acute Assessment and Plan: H&H low but stable. No evidence of acute bleeding. (6) Tobacco abuse: Code(s): Z72.0 - Tobacco use Status: Acute Assessment and Plan: Educated on smoking cessation. DS: Summary Hospital Course Hospital Course: See above Time Spent with Patient Time attestation: Total time spent providing and/or coordinating discharge services: 40 minutes Exam Narrative: Exam Narrative: General: Chronically ill-appearing female resting comfortably sitting up in bed in no acute distress. HEENT: Normocephalic, EOMI, oral mucosa moist. Cardiovascular: Rate and rhythm are regular. Respiratory: Lungs clear to auscultation bilaterally. Respirations even and non-labored. Abdomen: Soft, mildly distended, nontender to palpation, bowel sounds present. Extremities: Peripheral pulses intact. No edema or pain to palpation. Neuro: Awake adn alert; answering questions appropriately. No focal neurological deficits. Speech is clear. DS: Data Data Completed and Pending Pending studies at discharge: Pending at discharge 07/25/20 17:12 Cytology [PTH] Routine Labs on day of discharge: Last Vital Signs Temp 97.5 F L 07/26/20 06:00 Pulse 63 07/26/20 08:00 Resp 18 07/26/20 08:00 BP 112/56 L 07/26/20 11:30 Pulse Ox 94 07/26/20 08:43 ITS Impressions Chest
--- NOTE | 2020-07-26 12:24 | WPDGICN ---
Assessment and Plan Assessment and plan (1) Pancreatic mass: Code(s): K86.89 - Other specified diseases of pancreas Status: Acute Assessment and Plan: will ask her GI, Dr Mercer, to perform EUS of pancreas as outpatient (she is already established and we do not have EUS in our hospital), need to rule out malignancy- will fax result of CT scan (2) Alcoholic cirrhosis of liver with ascites: Code(s): K70.31 - Alcoholic cirrhosis of liver with ascites Status: Acute Assessment and Plan: better after paracentesis, no SBP she already called to get follow-up with her drill grinder at [facility] and waiting to hear back continue with diuretics and 2g na diet (3) Nausea & vomiting: Code(s): R11.2 - Nausea with vomiting, unspecified Status: Acute Assessment and Plan: improved (4) Abdominal pain: Code(s): R10.9 - Unspecified abdominal pain Status: Acute Assessment and Plan: improved after paracentesis (5) Chronic anemia: Code(s): D64.9 - Anemia, unspecified Status: Acute (6) Esophageal varices in alcoholic cirrhosis: Code(s): K70.30 - Alcoholic cirrhosis of liver without ascites; I85.10 - Secondary esophageal varices without bleeding Status: Acute Assessment and Plan: found during last egd, no bleeding on propranolol follow-up with her drill grinder GI Consult Note Consult date/time: 07/26/20 12:24 Reason for consult: decompensated alcoholic cirrhosis with ascites and new pancreatic mass HPI: Ace Carl is a 60 year old female who I met during recent hospitalization several days ago when she came with ascites that required paracentesis. She has decompensated alcoholic cirrhosis diagnosed 5-6 years ago when she required her first paracentesis at another hospital, she says that quit drinking more than a year ago, did not required paracentesis until last month then was admitted here 10 days ago for another paracentesis. Her regular GI doctor is Woody Mercer in [place] and she also is supposed to follow-up with her drill grinder at [facility]. Last EGD by Dr Mckay 2019 with esophageal varices, no bleeding. She came here with more abdominal discomfort, increase abdominal girth and nausea with vomiting 2 days ago, also decrease appetite with weight loss. I reviewed CT scan a/p that showed chronic pancreatitis, interval development of pancreatic uncinate solid versus proteinaceous cystic mass 2.2cm, could be adenocarcinoma or cystic pancreatic neoplasms, also cirrhosis with ascites. She underwent paracentesis by radiology, removed 1 L yellow fluid, no SBP and feeling better now. She also has chronic pain in legs from neuropathy. She is on 20mg lasix and 50mg aldactone. Review of Systems Constitutional: Constitutional: Denies chills Eyes: Eyes: Denies blurry vision ENT: Reports Normal hearing present Cardiovascular: Cardiovascular: Denies chest pain Respiratory: Respiratory: Denies dyspnea Gastrointestinal: Gastrointestinal: Reports abdominal pain, Reports nausea and Reports vomiting Genitourinary: Genitourinary: Denies hematuria Musculoskeletal: Musculoskeletal: Denies neck pain Integumentary/Breasts: Skin/Breast: Denies dry skin Neurologic: Denies headache(s) Psychiatric: Psychiatric: Denies behavioral changes REPLACED BY [facility] Past Medical History Medical History (Updated 07/26/20 @ 12:22 by Matt Modi MD) Alcoholism Anemia Anxiety Chlamydia Chronic anemia Cirrhosis of liver Colonoscopy planned 2014 Depression Esophageal varices in alcoholic cirrhosis Gall stones GERD (gastroesophageal reflux disease) Hypertension Hyponatremia Insomnia Migraine Neuropathy Normal endoscopy 2015 Pancreatic mass S/P abdominal paracentesis Several Thyroid disease Surgical History Surgical History (Updated 07/25/20 @ 21:51 by Mery Angeles NP) H/O breast augmentation H/O dilation and curettage H/O endoscopy H/O tubal
--- NOTE | 2020-07-31 13:06 | PC.NURSE ---
Ascites fluid cx are both negative.
[2020-07-31 14:50] LABS: Total Protein Peritoneal Fluid <3.0 g/dL
[2020-08-03 21:21] LABS: Albumin Peritoneal Fluid 1.1 g/dL
[2020-08-03 22:16] LABS: Amylase Peritoneal Fluid 48 U/L
[2020-08-05 20:48] LABS: Glucose Peritoneal Fluid 92 mg/dL
== END 2020-07-26 14:00 | disposition home or self-care (01) ==
LOC: ANHED 13:57 → ANH3MEDSUR 18:17
PROVIDERS: Nurse Practitioner; Admitting Provider Family Medicine; Emergency Provider General Practice; PCP Internal Medicine; Visit Provider Physician Assistant
DX: Z79.01 Long term (current) use of anticoagulants (principal); K70.31 Alcoholic cirrhosis of liver with ascites; R10.11 Right upper quadrant pain; K86.89 Other specified diseases of pancreas; I82.409 Acute embolism and thrombosis of unspecified deep veins of unspecified lower extremity; F17.210 Nicotine dependence, cigarettes, uncomplicated; G62.9 Polyneuropathy, unspecified; I10 Essential (primary) hypertension; D64.9 Anemia, unspecified
CPT/HCPCS: 36415; 49083; 71045; 71275; 74177; 80053; 81003; 82042; 82140; 82150; 82945; 83605; 83690; 83735; 84157; 85025; 85610; 85730; 87070; 87075; 87205; 88104; 88108; 88305; 89051; 93005; 96361; 96365; 96367; 96375; 96376; 99285; A9270; C9113; G0378; J0696; J2270; J2405; J3475; J7040; J7120; Q9967

== ENCOUNTER 2020-10-25 21:37 | Observation (INO) | payer MEDICARE, MEDICAID, SELFPAY ==
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
[2020-10-25 21:43] VITALS: BP 148/87; PULSE 104; RESP 16; TEMP 36.4; O2SAT 97
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
--- NOTE | 2020-10-25 22:09 | ECG_ITS ---
Measurements Intervals Merino Rate: 95 P: -75 OK: 92 QRS: -29 QRSD: 93 T: 31 QT: 369 QTc: 466 Interpretive Statements ECTOPIC ATRIAL RHYTHM LOW QRS VOLTAGE IN LIMB LEADS BORDERLINE T WAVE ABNORMALITY- INFERIOR LEADS BASELINE ARTIFACT- II, III, AVR, AVF, V2-V6 ABNORMAL ECG Electronically Signed On 10-26-2020 7:04:48 CDT by Steven Nguyen D.O.
[2020-10-25 22:30] LABS: Basophils Absolute Auto 0.1 K/mm3 (0.0-0.1); Basophils Percent Auto 0.5 % (0.2-1.2); Eosinophils Absolute Auto 0.6 K/mm3 (0-0.3); Eosinophils Percent Auto 4.3 % (0-4.4); Hematocrit 38.3 % (37.0-47.0); Hemoglobin 11.9 g/dL (12.0-15.0); Immature Granulocyte Absolute 0.05 K/mm3 (0.00-0.031); Immature Granulocyte Percent A 0.4 % (0-0.5); Lymphocytes Absolute Auto 1.72 K/mm3 (0.9-3.2); Lymphocytes Percent Auto 13.2 % (18.3-44.2); Mean Corpuscular HGB Conc 31.1 g/dl (32-36); Mean Corpuscular Hemoglobin 29.2 pg (26-34); Mean Corpuscular Volume 94.1 fl (80-100); Mean Platelet Volume 8.8 fl (7.4-10.4); Monocytes Absolute Auto 1.1 K/mm3 (0.1-0.6); Monocytes Percent Auto 8.4 % (2.6-8.5); Neutrophils Absolute Auto 9.6 K/mm3 (1.3-6.7); Neutrophils Percent Auto 73.2 % (45.5-73.1); Platelet Count Result 289 k/mm3 (150-375); Red Blood Count 4.07 M/mm3 (4.2-5.4); Red Cell Distribution Width 15.9 % (11.5-14.5); White Blood Count 13.1 K/mm3 (4.5-10.0)
[2020-10-25 22:37] LABS: Prothrombin Time 12.8 Seconds (11.1-14.7)
[2020-10-25 22:46] LABS: Alanine Aminotransferase 19 U/L (4-35); Albumin Level 4.4 g/dL (3.5-5.1); Alkaline Phosphatase 142 U/L (38-126); Anion Gap 11 mmol/L (8-16); Aspartate Amino Transferase 34 U/L (14-36); Bilirubin,Total 0.6 mg/dL (0.2-1.3); Blood Urea Nitrogen 10 mg/dL (7-17); Calcium 9.4 mg/dL (8.4-10.2); Carbon Dioxide 25 mmol/L (22-30); Chloride 101 mmol/L (98-107); Estimated CRCL calculation 51 ml/min; Estimated Glomerular Filt Rate > 60; Glucose 130 mg/dL (65-110); Potassium 2.8 mmol/L (3.4-5.0); Sodium 137 mmol/L (137-145)
[2020-10-25 22:52] LABS: Lipase 2080 U/L (23-300)
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
[2020-10-26] VITALS (11 sets, daily range): BP systolic 124–146; BP diastolic 70–98; PULSE 68–103; RESP 18–20; TEMP 36.8; O2SAT 98–100; BMI 16.6
[2020-10-26] MEDS: ONDANSETRON INJ 4 MG/2 ML VIAL IV PUSH (00:18)
[2020-10-26] MEDS: HYDROmorphone HCL INJ (*CRX) 1 MG/ML SYR 0.5 MG IV PUSH (00:18)
[2020-10-26] MEDS: POTASSIUM CHLORIDE 20 MEQ TABLET 40 MEQ PO (01:43)
[2020-10-26 01:53] LABS: Magnesium 2.1 mg/dL (1.6-2.3)
--- NOTE | 2020-10-26 02:10 | ADMGEN ---
This patient, Ace Carl, was admitted to 2 Medical Room 243-. Patient/family oriented to hospital policies and general routines including ID bracelet, bed and alarms, visiting hours, pain management, procedures, bathroom and other care routines, personal items, smoking policy, room service/diet, and visiting hours. Information on how to activate the Rapid Response Team has been discussed. Patient/Family are encouraged to report perceived risks to care and to ask questions if they do not understand what they are told or what they should do.
[2020-10-26] MEDS: LACTATED RINGERS 1,000 ML 75 ML IV CONT (02:14)
[2020-10-26] MEDS: MORPHINE SULFATE (*CRX) 2 MG/ML INJ IV PUSH ×2 (04:00→08:29)
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
[2020-10-26] MEDS: ALBUMIN HUMAN 25% 25 GM/100 ML 100 ML IVPB ×2 (06:26→13:04)
[2020-10-26] MEDS: HYDROcodone/acetaminophen (*CRX) 5-325 MG TABLET PO (06:33)
[2020-10-26] MEDS: PANTOPRAZOLE 40 MG TABLET PO (08:23)
[2020-10-26] MEDS: PROPRANOLOL HCL 20 MG TABLET PO (08:23)
[2020-10-26] MEDS: SPIRONOLACTONE 50 MG TABLET 100 MG PO (08:23)
[2020-10-26] MEDS: APIXABAN 5 MG TABLET PO (08:23)
[2020-10-26] MEDS: GABAPENTIN 300 MG CAPSULE 900 MG PO ×2 (08:24→13:09)
[2020-10-26] MEDS: CHOLECALCIFEROL 1,000 UNITS TABLET 2000 UNITS PO (08:24)
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
[2020-10-26] MEDS: NEOMYCIN/POLYMYXIN/BACITRACIN OINTMENT 15 GM TUBE 1 APPLIC TOPICAL (13:04)
[2020-10-26] MEDS: oxyCODONE HCL (*CRX) 5 MG TAB IR PO (13:08)
[2020-10-26] MEDS: NICOTINE (*PBKC) 21 MG PATCH 1 PATCH TRANSDERM (13:08)
[2020-10-26] MEDS: DULoxetine HCL 20 MG CAPSULE.DR PO (13:09)
[2020-10-26 13:22] LABS: Anion Gap 6 mmol/L (8-16); Blood Urea Nitrogen 8 mg/dL (7-17); Calcium 8.7 mg/dL (8.4-10.2); Carbon Dioxide 27 mmol/L (22-30); Chloride 102 mmol/L (98-107); Estimated CRCL calculation 48 ml/min; Estimated Glomerular Filt Rate > 60; Glucose 122 mg/dL (65-110); Potassium 3.8 mmol/L (3.4-5.0); Sodium 135 mmol/L (137-145)
[2020-10-26] MEDS: MORPHINE SULFATE (*CRX) 15 MG TABCR PO (15:35)
== END 2020-10-26 16:53 | disposition hospice, home (50) ==
LOC: ANHED 23:14 → ANH2MED 10-26 02:54
PROVIDERS: Admitting Provider Internal Medicine; Emergency Provider General Practice; PCP Internal Medicine; Visit Provider Internal Medicine
DX: S22.43XA Multiple fractures of ribs, bilateral, initial encounter for closed fracture (principal); S22.21XA Fracture of manubrium, initial encounter for closed fracture; S12.600A Unspecified displaced fracture of seventh cervical vertebra, initial encounter for closed fracture; S42.002A Fracture of unspecified part of left clavicle, initial encounter for closed fracture; S00.83XA Contusion of other part of head, initial encounter; V49.40XA Driver injured in collision with unspecified motor vehicles in traffic accident, initial encounter; K70.31 Alcoholic cirrhosis of liver with ascites; K85.90 Acute pancreatitis without necrosis or infection, unspecified; K86.1 Other chronic pancreatitis; K86.89 Other specified diseases of pancreas; I85.10 Secondary esophageal varices without bleeding; F10.20 Alcohol dependence, uncomplicated; I10 Essential (primary) hypertension; G62.9 Polyneuropathy, unspecified; F41.8 Other specified anxiety disorders; D64.9 Anemia, unspecified; K21.9 Gastro-esophageal reflux disease without esophagitis; F17.210 Nicotine dependence, cigarettes, uncomplicated; Z79.891 Long term (current) use of opiate analgesic
CPT/HCPCS: 36415; 70450; 70486; 71045; 71260; 72125; 74177; 80048; 80053; 83690; 83735; 85025; 85610; 85730; 86850; 86900; 86901; 93005; 96365; 96366; 96374; 96375; 96376; 99285; A4565; A9270; G0378; J1170; J2270; J2405; J7120; P9047; Q9967

== ENCOUNTER 2020-10-31 07:47 | Inpatient (IN) | payer MEDICARE, MEDICAID, SELFPAY ==
[2020-10-31] VITALS (10 sets, daily range): BP systolic 146–159; BP diastolic 79–98; PULSE 56–74; RESP 13–21; TEMP 36.1–36.7; O2SAT 94–100; BMI 17.6
--- NOTE | ~2020-10-31 | XR_ITS ---
EXAMINATION: XR chest 1V INDICATION: Pain after fall TECHNIQUE: AP view the chest is obtained. COMPARISON: 10/25/2020 FINDINGS: The lungs are free of acute opacities. There is no pleural effusion or pneumothorax. The ca rdiomediastinal silhouette is normal. A fracture of the left clavicle is again noted. Bilateral rib f ractures described on recent CT are not well demonstrated. IMPRESSION: 1. No acute cardiopulmonary abnormality. Reviewed, dictated and finalized at location D.
--- NOTE | ~2020-10-31 | US_ITS ---
EXAMINATION:US venous doppler LE BI INDICATION:Right lower extremity pain TECHNIQUE: Multiple grayscale, color flow and Doppler images of the right lower extremity deep venous systems were obtained and reviewed. COMPARISON:No prior studies for comparison. FINDINGS: The common femoral, superficial femoral and popliteal veins demonstrate normal respiratory variation, augmentation and compressibility. Color flow is also seen within the posterior tibial, pe roneal, greater saphenous and profunda veins. IMPRESSION: 1: No lower extremity deep venous thrombosis. Reviewed, dictated and finalized at location A.
--- NOTE | ~2020-10-31 | XR_ITS ---
EXAMINATION: XR surgery orthopedic DATE: 11/01/2020 10:52 INDICATION: Intraoperative fixation of right hip fracture TECHNIQUE: 5 fluoroscopic images right hip FINDINGS: Status post placement of dynamic compression screw transfixing the right femoral neck with intramedullary jonathan. There is a single distal interlocking screw. Subcutaneous gas with soft tissue sw elling are consistent with recent surgery. IMPRESSION: 1. Recent intraoperative fixation of right femoral intertrochanteric fracture with dynamic compressio n screw, in anatomic alignment. Reviewed, dictated and finalized at location A. IMPRESSION: 1. Recent intraoperative fixation of right femoral intertrochanteric fracture w ith dynamic compression screw, in anatomic alignment.
--- NOTE | ~2020-10-31 | US_ITS ---
EXAMINATION: US abdomen limited DATE: 11/03/2020 14:18 INDICATION: Assess volume of ascites TECHNIQUE: Multiple grayscale and Doppler ultrasound images of the abdomen were obtained. COMPARISON: 07/25/2020 FINDINGS: There is a small volume of ascites in the right upper quadrant and left lower quadrant. IMPRESSION: 1. Small volume of right upper quadrant and left lower quadrant ascites. Reviewed, dictated and finalized at location A.
--- NOTE | ~2020-10-31 | CT_ITS ---
EXAMINATION: CT facial & cervical spine wo EXAM DATE: 10/31/2020 09:20 INDICATION: Fall, right frontal head injury. Pancreatic cancer. TECHNIQUE: Spiral CT of the facial bones was acquired in the axial plane. Coronal reformatted images were also reviewed. Spiral CT of the cervical spine was performed without contrast. Axial images we re reviewed. Coronal and sagittal reformatted images were also reviewed. The dose-length product (DL P) for this examination was 107.18 mGy-cm. The exposure was tailored according to patient size, and iterative reconstruction (ASIR) was used as additional dose reduction technique. Comparison is made t o prior examination from 10/25/2020. FINDINGS: FACIAL CT: There are no displaced acute nasal bone fractures. The mandible, sinuses and orbits are i ntact. The orbits, globes and extraocular muscles are unremarkable. The visualized sinuses and ma stoid air cells are well aerated. Large right frontal scalp hematoma, similar appearance on recent prior study. CERVICAL CT: There is no evidence of acute cervical fracture. The odontoid process is intact. Pre-d ens space is normal. Prevertebral soft tissue is normal. There are no soft tissue abnormalities jodi ntified. There is no disc space widening or traumatic vertebral body subluxation suspected. Moderat e reversal of normal cervical lordosis. There is severe left C2-3 facet arthropathy, moderate uncover tebral joint disease on the left at this level. Less arthritis at the other levels. Moderate lower ce rvical disc disease. A detailed level by level evaluation of spondylosis can be added as addendum if requested. IMPRESSION: 1. No acute facial or cervical fracture. 2. Right frontal scalp hematoma Reviewed, dictated and finalized at location A.
--- NOTE | ~2020-10-31 | XR_ITS ---
EXAMINATION: XR hip RT 2V w AP pelvis DATE: 10/31/2020 09:10 INDICATION: Right hip injury. TECHNIQUE: An anteroposterior view of the pelvis and 2 views of right hip were obtained. COMPARISON: CT pelvis 10/25/2020 FINDINGS: There is lumbar levocurvature and mild spondylosis. There is an intertrochanteric fracture of proximal right femur. The distal fracture fragment demonstrates posterior angulation and 25 degree s varus angulation. There is mild osteoarthritis of the hips. IMPRESSION: 1. Intertrochanteric fracture of proximal right femur. 2. Mild osteoarthritis of the hips. Reviewed, dictated and finalized at location A.
--- NOTE | ~2020-10-31 | CT_ITS ---
EXAMINATION: CT brain wo con DATE: 10/31/2020 09:20 INDICATION: Head injury. TECHNIQUE: Computed tomography (CT) of the head was performed without intravenous contrast. The mA wa s adjusted according to patient size. Iterative reconstruction technique was employed. The dose-lengt h product was 605.33 mGy-cm. COMPARISON: Head CT 10/25/2020 FINDINGS: There is a right frontal scalp hematoma. There are scattered areas of low attenuation in th e cerebral white matter. There is no intracranial hemorrhage, acute infarction, or abnormal intracran ial mass lesion. The ventricles are normal in size. There is an old blowout fracture of medial wall o f right orbit. There are likely changes of ocular lens replacement surgeries. The mastoid air cells a re normal. IMPRESSION: 1. Stable mild nonspecific cerebral white matter disease, which likely represents chronic small vesse l ischemic disease. Reviewed, dictated and finalized at location A. IMPRESSION: 1. Stable mild nonspecific cerebral white matter disease, which likely represen ts chronic small vessel ischemic disease.
--- NOTE | 2020-10-31 08:30 | ECG_ITS ---
Measurements Intervals [place] Rate: 60 P: 66 IN: 153 QRS: -15 QRSD: 85 T: 47 QT: 456 QTc: 457 Interpretive Statements SINUS RHYTHM LOW QRS VOLTAGE IN LIMB LEADS CANNOT RULE OUT SEPTAL INFARCT, AGE INDETERMINATE BASELINE ARTIFACT- I, II, III, AVR, AVL, AVF, V1, V4-V6 ABNORMAL ECG Electronically Signed On 10-31-2020 11:09:13 CDT by Steven Nguyen D.O.
--- NOTE | 2020-10-31 08:41 | ED.FALL ---
HPI - Fall General Chief Complaint: Fall Stated Complaint: fall - hip pain Time Seen by Provider: 10/31/20 08:07 Source: EMS and RN notes reviewed Mode of arrival: EMS Limitations: clinical condition History of Present Illness HPI Narrative: Patient presents to the ED with right hip pain, multiple falls, multiple bruises. Patient had history of pancreatic cancer, currently is hospice. No family member at the bedside, patient is very lethargic, unable to answer questions clearly. Related Data Home Medications Medication Instructions Recorded Confirmed linaclotide 72 mcg capsule 72 mcg PO DAILY PRN 06/04/19 10/26/20 pantoprazole 40 mg PO DAILY 07/14/20 10/26/20 propranolol 20 mg PO BID 07/14/20 10/26/20 spironolactone 100 mg tablet 100 mg PO DAILY 09/11/20 10/26/20 gabapentin 900 mg PO TID 10/26/20 10/26/20 Allergies Allergy/AdvReac Type Severity Reaction Status Date / Time No Known Allergies Allergy Mild Verified 10/31/20 11:46 Review of Systems Review of Systems: ROS unobtainable: Yes unobtainable due to medical condition PMFSH Past Medical History Medical History Alcoholism Anemia Anxiety Chlamydia Chronic anemia Cirrhosis of liver Colonoscopy planned 2014 Depression Esophageal varices in alcoholic cirrhosis Gall stones GERD (gastroesophageal reflux disease) Hypertension Hyponatremia Insomnia Migraine Neuropathy Normal endoscopy 2014 Pancreatic mass S/P abdominal paracentesis Several Thyroid disease Surgical History Surgical History H/O breast augmentation H/O dilation and curettage H/O endoscopy H/O tubal ligation BL Hx of colonoscopy Family History Family History Mother Patient's mother is in good health Cerebrovascular accident Family history of heart disease in male family member before age 55 Father Family history of heart disease in male family member before age 55 Sibling TIA (transient ischemic attack) Social History Social History Social History: The patient has 1 daughter. The patient is disabled. The patient is . The patient does not have a durable power senior attorney for healthcare. She is a full code. Smoking packs per day: 1 Smoking cigarettes per day: 20.0 Years smoked: 30 Smoking pack-years: 30.00 Smoking status: Heavy tobacco smoker Tobacco type: cigarettes Second hand tobacco smoke exposure: Yes Alcohol intake: never Substance use: never Substance use type: does not use Additional living arrangements comments: Mother and sister Gender identity (if verbalized by the patient): Female Sexual Orientation (if Verbalized by the Patient): Straight or Heterosexual Spiritual care concerns: No Exam Narrative: General appearance: Malnourished, cachectic, lethargic Skin: Multiple scattered bruises including the face, the neck, the chest, back and extremities Head: Large forehead hematoma Eyes: Clear conjunctiva Neck: Supple, diffuse tenderness Chest and respiratory: Airway patent, diffuse chest tenderness Heart: Regular rate/rhythm Abdomen: Soft, nontender, no organomegaly, quiet bowel sounds Vascular: Normal peripheral pulses, normal capillary refill. Musculoskeletal: Generalized tenderness with any palpation Neurologic: Alert and oriented ?3, Course Course Emergency Course: Stable Vital Signs Vital signs: Vital Signs Temperature 36.1 C L 10/31/20 07:48 Pulse Rate 61 10/31/20 07:48 Respiratory Rate 17 10/31/20 07:48 Blood Pre
[2020-10-31] MEDS: SODIUM CHLORIDE 0.9% IV 1,000 ML 999 ML IV CONT (08:49)
[2020-10-31] MEDS: ONDANSETRON INJ 4 MG/2 ML VIAL IV PUSH (08:53)
[2020-10-31] MEDS: MORPHINE SULFATE (*CRX) 2 MG/ML INJ IV PUSH (08:54)
[2020-10-31 10:40] LABS: Add Urine Microscopic? YES; Appearance Urine Clear (Clear); Bilirubin Urine Negative (Negative); Blood Urine Negative (Negative); Color Urine Straw (Yellow); Glucose Urine UA Negative (Negative); Ketones Urine Negative (Negative); Leukocyte Esterase Ur 1+ LEU/UL (Negative); Nitrate Urine Positive (Negative); Protein Urine Negative (Negative); RBC Urine 0-2 /hpf (0-2); Specific Grav Ur 1.008 (1.001-1.035); Urobilinogen Urine Negative mg/dL (<2.0)
--- NOTE | 2020-10-31 10:40 | PC.NURSE ---
lab attempted by multiple techs and nurses. will send labs obtained.
--- NOTE | 2020-10-31 10:42 | PCCCNOTE ---
Spoke with patient's sister, Alma, per patient's request. Updated Alma with xray results and probable need for long-term at discharge. Patient's mother lived at [place] (now [facility]) and that is where sister would prefer patient go upon discharge. Patient currently lives with Alma and she is in agreement that she would not have the adequate resources to care for the patient at home. Discussed this with patient and she agreed. Patient's significant other at bedside (very hard of hearing) and he is also in agreement although he would prefer patient to stay in the hospital for 'a few weeks'. Discussed 'medical necessity' with verbalized understanding. Per Alma, patient is not yet on hospice as she is waiting to hear back from her Primary Care Physician (Dr Chow) and her liver specialist (they did not rembmer his name) before making a final decision about hospice. Message left for Char at [facility] [phone]
--- NOTE | 2020-10-31 10:45 | PC.NURSE ---
unable to obtain 2 full sets of blood cultures.
[2020-10-31 11:05] LABS: Basophils Percent Auto 0.4 % (0.2-1.2); Eosinophils Absolute Auto 0.1 K/mm3 (0-0.3); Hematocrit 32.1 % (37.0-47.0); Hemoglobin 9.9 g/dL (12.0-15.0); Immature Granulocyte Absolute 0.05 K/mm3 (0.00-0.031); Immature Granulocyte Percent A 0.6 % (0-0.5); Lymphocytes Absolute Auto 0.73 K/mm3 (0.9-3.2); Lymphocytes Percent Auto 9.1 % (18.3-44.2); Mean Corpuscular HGB Conc 30.8 g/dl (32-36); Mean Corpuscular Hemoglobin 28.9 pg (26-34); Mean Corpuscular Volume 93.9 fl (80-100); Mean Platelet Volume 9.3 fl (7.4-10.4); Monocytes Absolute Auto 0.7 K/mm3 (0.1-0.6); Monocytes Percent Auto 8.7 % (2.6-8.5); Neutrophils Absolute Auto 6.4 K/mm3 (1.3-6.7); Neutrophils Percent Auto 80.2 % (45.5-73.1); Platelet Count Result 308 k/mm3 (150-375); Red Blood Count 3.42 M/mm3 (4.2-5.4); Red Cell Distribution Width 15.9 % (11.5-14.5)
[2020-10-31 11:15] LABS: INR 1.1; Prothrombin Time 14.3 Seconds (11.1-14.7)
[2020-10-31 11:16] LABS: Partial Thromboplastin Time 27.8 SECONDS (22.3-36.8)
[2020-10-31 11:19] LABS: Alanine Aminotransferase 14 U/L (4-35); Albumin Level 3.9 g/dL (3.5-5.1); Alkaline Phosphatase 158 U/L (38-126); Anion Gap 8 mmol/L (8-16); Aspartate Amino Transferase 38 U/L (14-36); Bilirubin,Total 0.6 mg/dL (0.2-1.3); Blood Urea Nitrogen 6 mg/dL (7-17); Calcium 7.9 mg/dL (8.4-10.2); Carbon Dioxide 29 mmol/L (22-30); Chloride 96 mmol/L (98-107); Creatine Kinase 120 U/L (30-135); Estimated CRCL calculation 70 ml/min; Estimated Glomerular Filt Rate > 60; Glucose 131 mg/dL (65-110); Potassium 3.2 mmol/L (3.4-5.0); Sodium 133 mmol/L (137-145)
--- NOTE | 2020-10-31 11:47 | PC.NURSE ---
There is pain reported to right hip, worse with movement or palpation. She has shortening and external rotation of the right leg. She reports that she can feel my touch in different areas of the right leg. She is able to move her foot and toes (reports pain with this) and has palpable dorsalis pedis pulse on the right side. This is reported as a new injury after a fall. She also has a large hematoma with bruising to the right forehead. There is bilateral periorbital swelling with raccoon's eyes type bruising noted bilaterally to the face. Additionally there is bilateral bruising noted to both cheeks and to the right lateral neck. Patient also has a large abrasion with scabbing noted to the left upper chest and shoulder. Bilateral bruising noted to breasts and epigastric bruising is also noted. There is no bruising otherwise noted to the abdominal area. Pain is reported with palpation to the face, chest, and abdomen. Pain is reported to the right hip as well and there is deformity noted to the right hip. No further bruising or deformity is noted to either leg.
--- NOTE | 2020-10-31 12:41 | PCCCNOTE ---
Clinicals faxed to [facility] per sister's request. Spoke with Shadia. Included in clinicals were xrays from her last admission to [place] (clavical and rib fractures).
--- NOTE | 2020-10-31 13:22 | PC.NURSE ---
ED Provider reports that patient has been accepted by the orthopedist vocational guidance counselor for today. He has requested that we contact the patient's family to determine wether or not they would like the patient to have surgery. I spoke with the wound care technician who has been working with this patient and she states she will call family and let me know their wishes. She also tells me that she has sent information to [facility] for skilled care admission after patient is discharged.
[2020-10-31] MEDS: HYDROmorphone HCL INJ (*CRX) 1 MG/ML SYR 0.5 MG IV PUSH ×3 (13:37→21:13)
--- NOTE | 2020-10-31 13:46 | PC.NURSE ---
Patient sleeping on arrival in room. Hospitalist in room with patient as well. Patient wakes easily and is oriented x 4. The ED Provider and the hospitalist have been speaking with the patient about surgical repair of her fracture. When asked if she want's to have the surgery, the patient states yes . Hospitalist in room when patient reports that she does want to have the hip surgery.
--- NOTE | 2020-10-31 14:15 | PCCCNOTE ---
[facility] unable to accept patient
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
--- NOTE | 2020-10-31 14:27 | PCCCNOTE ---
Spoke with Keyanna at [facility]. Clinicals faxed.Updated [place]. She understands that there is a possibility for both [place] and [place] and while she would prefer [place], [facility] would be acceptable
[2020-10-31] MEDS: POTASSIUM CHLORIDE 20 MEQ PACKET (FOR LIQUID) 40 MEQ PO (14:28)
[2020-10-31] MEDS: LACTATED RINGERS 1,000 ML 125 ML IV CONT ×2 (14:33→21:04)
--- NOTE | 2020-10-31 15:51 | PC.NURSE ---
This patient, Ace Carl, was admitted to 2 Medical Room 258-. Patient/family oriented to hospital policies and general routines including ID bracelet, bed and alarms, visiting hours, pain management, procedures, bathroom and other care routines, personal items, smoking policy, room service/diet, and visiting hours. Information on how to activate the Rapid Response Team has been discussed. Patient/Family are encouraged to report perceived risks to care and to ask questions if they do not understand what they are told or what they should do.
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
[2020-10-31] MEDS: GABAPENTIN 300 MG CAPSULE 900 MG PO (21:01)
[2020-10-31] MEDS: SENNOSIDES 8.6 MG TABLET PO (21:02)
[2020-10-31] MEDS: PROPRANOLOL HCL 20 MG TABLET PO (21:02)
[2020-10-31] MEDS: ZOLPIDEM TARTRATE (*CRX) 5 MG TABLET 10 MG PO (23:15)
[2020-11-01] VITALS (24 sets, daily range): BP systolic 93–164; BP diastolic 62–82; PULSE 48–87; RESP 6–18; TEMP 36.1–37.2; O2SAT 94–100
[2020-11-01] MEDS: HYDROmorphone HCL INJ (*CRX) 1 MG/ML SYR 0.5 MG IV PUSH ×4 (04:33→22:40)
[2020-11-01] MEDS: LACTATED RINGERS 1,000 ML 125 ML IV CONT (04:34)
[2020-11-01 05:06] LABS: Hematocrit 26.6 % (37.0-47.0); Hemoglobin 8.5 g/dL (12.0-15.0); Mean Corpuscular Hemoglobin 29.2 pg (26-34); Mean Corpuscular Volume 91.4 fl (80-100); Mean Platelet Volume 9.2 fl (7.4-10.4); Platelet Count Result 339 k/mm3 (150-375); Red Blood Count 2.91 M/mm3 (4.2-5.4); Red Cell Distribution Width 15.9 % (11.5-14.5); White Blood Count 9.4 K/mm3 (4.5-10.0)
[2020-11-01 05:32] LABS: Alanine Aminotransferase 12 U/L (4-35); Albumin Level 2.8 g/dL (3.5-5.1); Alkaline Phosphatase 122 U/L (38-126); Anion Gap 5 mmol/L (8-16); Aspartate Amino Transferase 31 U/L (14-36); Bilirubin,Total 0.6 mg/dL (0.2-1.3); Blood Urea Nitrogen 5 mg/dL (7-17); Carbon Dioxide 28 mmol/L (22-30); Chloride 101 mmol/L (98-107); Estimated CRCL calculation 70 ml/min; Estimated Glomerular Filt Rate > 60; Glucose 98 mg/dL (65-110); Magnesium 1.3 mg/dL (1.6-2.3); Potassium 4.3 mmol/L (3.4-5.0); Sodium 134 mmol/L (137-145)
[2020-11-01 05:39] LABS: Lactic Acid Reflex 0.8 mmol/L (0.7-2.1)
[2020-11-01] MEDS: PANTOPRAZOLE 40 MG TABLET PO (07:55)
[2020-11-01] MEDS: GABAPENTIN 300 MG CAPSULE 900 MG PO ×3 (07:55→17:11)
[2020-11-01] MEDS: NEOMYCIN/POLYMYXIN/BACITRACIN OINTMENT 15 GM TUBE 1 APPLIC TOPICAL (07:55)
[2020-11-01] MEDS: PROPRANOLOL HCL 20 MG TABLET PO ×2 (07:55→20:10)
[2020-11-01] MEDS: DULoxetine HCL 20 MG CAPSULE.DR PO (07:57)
--- NOTE | 2020-11-01 08:43 | WPDANESEPPF ---
Anes - Initial Pre Proc Eval Procedure: Operation Date: 11/01/20 08:30 Proposed Procedures p ORIF Hip with DHS(Right) - Alo Carias MD Date/Time: 11/01/20 08:43 Surgeon: Matt Moraes MD Pre Op Diagnosis: Multiple falls/right hip fracture/hypokalemia Patient Data Age: 60 Gender: F Height: 1.6 m Weight: 45.3 kg Last Vital Signs Temp 36.8 C 11/01/20 07:58 Pulse 76 11/01/20 08:00 Resp 16 11/01/20 08:00 BP 130/78 11/01/20 07:58 Pulse Ox 100 11/01/20 08:00 Allergies Allergy/AdvReac Type Severity Reaction Status Date / Time No Known Allergies Allergy Mild Verified 10/31/20 18:15 Home Medications Medication Instructions Recorded Confirmed Type linaclotide 72 mcg capsule 72 mcg PO DAILY PRN 06/04/19 10/31/20 History pantoprazole 40 mg PO DAILY 07/14/20 10/31/20 History propranolol 20 mg PO BID 07/14/20 10/31/20 History furosemide 20 mg tablet 40 mg PO DAILY #180 tablet 08/05/20 10/31/20 Rx apixaban 5 mg tablet 5 mg PO BID #180 tablet 08/13/20 10/31/20 Rx cholecalciferol (vitamin D3) 50 2,000 unit PO DAILY #30 cap 09/10/20 10/31/20 Rx mcg (2,000 unit) capsule spironolactone 100 mg tablet 100 mg PO DAILY 09/11/20 10/31/20 History zolpidem 10 mg tablet 10 mg PO QHS PRN #20 tablet 10/06/20 10/31/20 Rx duloxetine [Cymbalta] 20 mg PO QAM #7 cap 10/26/20 10/31/20 Rx gabapentin 900 mg PO TID 10/26/20 10/31/20 History morphine 15 mg PO .qhs #7 tablet 10/26/20 10/31/20 Rx pzdsiazx-xqdqtbvaaVe-vfyjulyqI 1 applic TOPICAL QAM #14 g 10/26/20 10/31/20 Rx [Triple Antibiotic] oxycodone 5 mg PO Q4H PRN #30 tablet 10/26/20 10/31/20 Rx sennosides [Senokot] 8.6 mg PO HS #30 tablet 10/26/20 10/31/20 Rx Laboratory Tests 10/31/20 10/31/20 10/31/20 10:16 10:42 10:42 WBC 8.0 K/mm3 K/mm3 (4.5-10.0) RBC 3.42 M/mm3 L M/mm3 (4.2-5.4) Hgb 9.9 g/dL L g/dL (12.0-15.0) Hct 32.1 % L % (37.0-47.0) MCV 93.9 fl fl (80-100) MCH 28.9 pg pg (26-34) MCHC 30.8 g/dl L g/dl (32-36) RDW 15.9 % H % (11.5-14.5) Plt Count 308 k/mm3 k/mm3 (150-375) MPV 9.3 fl fl (7.4-10.4) Immature Gran % (Auto) 0.6 % H % (0-0.5) Neut % (Auto) 80.2 % H % (45.5-73.1) Lymph % (Auto) 9.1 % L % (18.3-44.2) [place] % (Auto) 8.7 % H % (2.6-8.5) Eos % (Auto) 1.0 % % (0-4.4) Baso % (Auto) 0.4 % % (0.2-1.2) Lymph # (Auto) 0.73 K/mm3 L K/mm3 (0.9-3.2) [place] # (Auto) 0.7 K/mm3 H K/mm3 (0.1-0.6) Eos # (Auto) 0.1 K/mm3 K/mm3 (0-0.3) Baso # (Auto) 0.0 K/mm3 K/mm3 (0.0-0.1) Abs Immat Gran (auto) 0.05 K/mm3 H K/mm3 (0.00-0.031) Absolute Neuts (auto) 6.4 K/mm3 K/mm3 (1.3-6.7) Absolute Nucleated RBC 0.0 K/mm3 K/mm3 (0.0-0.012) Nucleated RBC % 0.0 % % (0.0-0.2) PT 14.3 Seconds Seconds (11.1-14.7) INR 1.1 APTT 27.8 SECONDS SECONDS (22.3-36.8) Sodium Potassium Chloride Carbon Dioxide Anion Gap BUN Creatinine Estim Creat Clear Calc Estimated GFR Glucose Lactic Acid Calcium Magnesium Total Bilirubin AST ALT Alkaline Phosphatase Total Creatine Kinase Total Protein Albumin TSH (Reflex) Urine Color Straw (Yellow) Urine Appearance Clear (Clear) Urine pH 7.0 (5.0-9.0) Ur Specific [place] 1.008 (1.001-1.035) Urine Protein Negative mg/dL mg/dL (Negative) Urine Glucose (UA) Negative mg/dL mg/dL (Negative) Urine Ketones Negative mg/dL mg/dL (Negative) Ur Blood (Man) Negative (Negative) Urine Nitra
--- NOTE | 2020-11-01 09:05 | WPDHPUPDATE1 ---
History and Physical Update Update Date/Time: 11/01/20 09:05 History and Physical has been reviewed, including an updated exam of the patient. There are NO changes in the patient's condition. Risks, benefits, and alternatives have been discussed and questions answered. Patient agrees to proceed with procedure.
[2020-11-01] MEDS: ceFAZolin SODIUM 1 GM VIAL 3 GM IRRIGATION (09:26)
[2020-11-01] MEDS: ceFAZolin 2 GM/D5W 50 ML 2 GM/50 ML BAG IVPB (09:26)
--- NOTE | 2020-11-01 10:50 | P.OP_ITS ---
Procedure Note - Detailed Date of Procedure 11/01/20 Pre-op Diagnosis Multiple falls/right hip fracture/hypokalemia Post-op Diagnosis same Procedure Performed Open reduction internal fixation right intertrochanteric hip fracture with Affi xus nail. Surgeon Alo Carias MD Club Room Attendant Manisha Anesthesia general Description of Procedure Patient was brought to the operating room and general endotracheal anesthesia was administered. She received 750 mg of vancomycin and 2 g of Ancef preo peratively. She was carefully transferred to the fracture table. The right hip and thigh scrubbed with a chlorhexidine cloth. The right foot was padded and placed in the traction boot the left hip flexed and abducted out of the way. The right hip was prepped draped usual fashion. A 1/2 inch longitudinal incision was made proximal to greater trochanter guide pin inserted in the center the greater trochanter and into the canal over which we still used a starter Reamer and placed a long guide ran guide pin. The canal was reamed to 13 mm at which time we started to get some chatter. The proximal femur reamed to 16 mm. The 130 degree Affixus nail was chosen 11 mm stem diameter and this was inserted without difficulty. A guide pin was inserted in the low center femoral head and the 2nd anti rotation guide pin placed. We had anatomic reduction. The fracture was a 4 part type with posterior greater trochanter comminution and surface comminution of the lesser trochanter. The lag screw hole was drilled and we chose the 90 mm screw which was placed to about 6 mm from subchondral bone in the femoral head. We then placed a 70 mm anti rotation screw which obtained good purchase. A distal interlocking screw was placed in the static mode. Traction was released. Fluoroscopic x-rays showed maintenance of anatomic alignment. The wounds were thoroughly irrigated with Ancef solutio n. The fascia was closed with running 1. Vicryl and the proximal and middle incisions and the skin closed with 2-0 subcutaneous Vicryl and glue EBL was 150. There were no complications she had 900 cc of IV fluids. She was transferred postop recovery room stable condition. We will have her on a monitored bed postoperatively as she does have an ASA score of 4. Implants Affixus Estimated Blood Loss 150 Drains No Packing No Pathology none sent Complications No immediate complications Condition stable Disposition PACU
[2020-11-01] MEDS: LACTATED RINGERS 1,000 ML 30 ML IV CONT ×2 (11:02)
[2020-11-01] MEDS: fentaNYL CITRATE INJ (*CRX) 100 MCG/2 ML VIAL 25 MCG IV PUSH ×3 (11:34→11:47)
[2020-11-01 11:49] LABS: Hematocrit 31.6 % (37.0-47.0); Hemoglobin 9.7 g/dL (12.0-15.0)
--- NOTE | 2020-11-01 12:57 | PC.NURSE ---
patient returned from surgery at 1240. report taken from [place] in PACU.
--- NOTE | 2020-11-01 13:49 | PCPTNOTE ---
Pt requested to wait and participate in therapy tomorrow due to significant hip pain. Will attempt at a later date/time.
[2020-11-01] MEDS: KCL 20 MEQ/D5/0.45% SOD CHL 1,000 ML 80 ML IV CONT (14:10)
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
--- NOTE | 2020-11-01 14:41 | W.PM.PROC2 ---
Procedure Note - Detailed Date of Procedure 11/01/20 Pre-op Diagnosis Hematoma of right forehead. Post-op Diagnosis same Procedure Performed Needle aspiration of hematoma of right forehead at bedside. Surgeon Jason Grove MD Anesthesia none Indications Tender 4 cm hematoma. Findings Partially clotted. Description of Procedure Pt consented to this procedure. Site was prepped with alcohol. 4 ml of old blood were aspirated via 18 ga needle on a 12 ml syringe. Band-Aid applied. No comlications. Pathology none sent Condition stable Disposition no change
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
[2020-11-01 18:42] LABS: Hematocrit 31.8 % (37.0-47.0); Hemoglobin 9.8 g/dL (12.0-15.0)
[2020-11-01] MEDS: APIXABAN 2.5 MG TABLET PO (20:09)
[2020-11-01] MEDS: SENNOSIDES 8.6 MG TABLET PO (20:10)
[2020-11-01] MEDS: ZOLPIDEM TARTRATE (*CRX) 5 MG TABLET 10 MG PO (20:12)
[2020-11-02] VITALS (17 sets, daily range): BP systolic 104–136; BP diastolic 58–82; PULSE 64–76; RESP 16–21; TEMP 36.1–36.9; O2SAT 90–98; BMI 10.0
[2020-11-02] MEDS: HYDROmorphone HCL INJ (*CRX) 1 MG/ML SYR 0.5 MG IV PUSH ×5 (03:47→19:50)
[2020-11-02 05:35] LABS: Basophils Percent Auto 0.3 % (0.2-1.2); Eosinophils Percent Auto 0.2 % (0-4.4); Hemoglobin 7.9 g/dL (12.0-15.0); Immature Granulocyte Absolute 0.04 K/mm3 (0.00-0.031); Immature Granulocyte Percent A 0.3 % (0-0.5); Lymphocytes Absolute Auto 2.03 K/mm3 (0.9-3.2); Mean Corpuscular HGB Conc 30.4 g/dl (32-36); Mean Corpuscular Hemoglobin 28.9 pg (26-34); Mean Corpuscular Volume 95.2 fl (80-100); Mean Platelet Volume 9.4 fl (7.4-10.4); Monocytes Absolute Auto 1.7 K/mm3 (0.1-0.6); Monocytes Percent Auto 13.9 % (2.6-8.5); Neutrophils Absolute Auto 8.1 K/mm3 (1.3-6.7); Neutrophils Percent Auto 68.3 % (45.5-73.1); Platelet Count Result 385 k/mm3 (150-375); Red Blood Count 2.73 M/mm3 (4.2-5.4); Red Cell Distribution Width 15.8 % (11.5-14.5); White Blood Count 11.9 K/mm3 (4.5-10.0)
[2020-11-02 06:42] LABS: Alanine Aminotransferase 13 U/L (4-35); Albumin Level 2.7 g/dL (3.5-5.1); Alkaline Phosphatase 119 U/L (38-126); Anion Gap 7 mmol/L (8-16); Aspartate Amino Transferase 30 U/L (14-36); Bilirubin,Total 0.3 mg/dL (0.2-1.3); Blood Urea Nitrogen 9 mg/dL (7-17); Calcium 7.7 mg/dL (8.4-10.2); Carbon Dioxide 25 mmol/L (22-30); Chloride 98 mmol/L (98-107); Estimated CRCL calculation 59 ml/min; Estimated Glomerular Filt Rate > 60; Glucose 104 mg/dL (65-110); Potassium 4.2 mmol/L (3.4-5.0); Sodium 130 mmol/L (137-145)
[2020-11-02 07:33] LABS: Vitamin D 25 Hydroxy 43.7 ng/mL
--- NOTE | 2020-11-02 08:03 | WPDANESPN ---
Anes - Prog Note Post-Op Date/Time: 11/02/20 08:03 Cardiovascular status: normal Respiratory status: normal Airway patency: baseline Mental status: baseline Post-Op hydration status: normal Vital Signs: Last Vital Signs Temp 36.9 C 11/02/20 06:18 Pulse 66 11/02/20 06:18 Resp 16 11/02/20 06:18 BP 113/67 11/02/20 06:18 Pulse Ox 96 11/02/20 06:18 Pain Score (VAS): 7 I/O: Intake & Output 11/01/20 11/02/20 11/02/20 23:59 07:59 15:59 Intake Total 690 880 Output Total 500 300 Balance 190 580 Laboratory Tests 11/02/20 04:48 11/02/20 04:48 11/01/20 11/01/20 11/01/20 04:55 11:41 18:20 WBC RBC Hgb 9.7 L 9.8 L Hct 31.6 L 31.8 L MCV MCH MCHC RDW Plt Count MPV Immature Gran % (Auto) Neut % (Auto) Lymph % (Auto) [place] % (Auto) Eos % (Auto) Baso % (Auto) Lymph # (Auto) [place] # (Auto) Eos # (Auto) Baso # (Auto) Abs Immat Gran (auto) Absolute Neuts (auto) Absolute Nucleated RBC Nucleated RBC % Sodium Potassium Chloride Carbon Dioxide Anion Gap BUN Creatinine Estim Creat Clear Calc Estimated GFR Glucose Calcium Total Bilirubin AST ALT Alkaline Phosphatase Total Protein Albumin Vitamin D 25-Hydroxy TSH (Reflex) 1.800 11/02/20 11/02/20 11/02/20 04:48 04:48 04:48 WBC 11.9 H RBC 2.73 L Hgb 7.9 L Hct 26.0 L MCV 95.2 MCH 28.9 MCHC 30.4 L RDW 15.8 H Plt Count 385 H MPV 9.4 Immature Gran % (Auto) 0.3 Neut % (Auto) 68.3 Lymph % (Auto) 17.0 L [place] % (Auto) 13.9 H Eos % (Auto) 0.2 Baso % (Auto) 0.3 Lymph # (Auto) 2.03 [place] # (Auto) 1.7 H Eos # (Auto) 0.0 Baso # (Auto) 0.0 Abs Immat Gran (auto) 0.04 H Absolute Neuts (auto) 8.1 H Absolute Nucleated RBC 0.0 Nucleated RBC % 0.0 Sodium 130 L Potassium 4.2 Chloride 98 Carbon Dioxide 25 Anion Gap 7 L BUN 9 Creatinine 0.60 L Estim Creat Clear Calc 59 Estimated GFR > 60 Glucose 104 Calcium 7.7 L Total Bilirubin 0.3 AST 30 ALT 13 Alkaline Phosphatase 119 Total Protein 6.0 L Albumin 2.7 L Vitamin D 25-Hydroxy 43.7 TSH (Reflex) Microbiology 10/31/20 10:16 Urine Clean Catch Urine Culture - Preliminary Escherichia Coli 10/31/20 10:43 Blood Blood Culture - Preliminary 10/31/20 10:43 Blood Blood Culture - Preliminary Post-procedural complaints: none Patient Feedback: Patient satisfied with anesthetic care.
[2020-11-02] MEDS: GABAPENTIN 300 MG CAPSULE 900 MG PO ×3 (08:08→16:28)
[2020-11-02] MEDS: NEOMYCIN/POLYMYXIN/BACITRACIN OINTMENT 15 GM TUBE 1 APPLIC TOPICAL (08:08)
[2020-11-02] MEDS: PROPRANOLOL HCL 20 MG TABLET PO ×2 (08:08→21:40)
[2020-11-02] MEDS: APIXABAN 2.5 MG TABLET PO ×2 (08:09→21:38)
[2020-11-02] MEDS: DULoxetine HCL 20 MG CAPSULE.DR PO (08:09)
[2020-11-02] MEDS: PANTOPRAZOLE 40 MG TABLET PO (08:09)
--- NOTE | 2020-11-02 10:54 | PM.PNORT ---
Progress Note: A&P Additional Plan Patient is postop day 1 after internal fixation right intertrochanteric hip fracture. Her blood pressure was a little on the lower side last evening. We maintained her IV fluids. Her hemoglobin was above 9 last evening. This morning her hemoglobin is 7.9 which is the expected drop from 8.5 yesterday morning before surgery. Her admission hemoglobin was only 9.9. I have ordered 1 unit of packed red blood cells for her as she is feeling a little weak and lightheaded. I have ordered an H&H at 6:00 p.m.. She did tolerate getting up the chair with physical therapy. She still has pain but it is reasonably controlled at this time. Urine growing E coli sensitivities pending. She is receiving ceftriaxone 1 g Q 24 hours pending sensitivities. Her 25 hydroxy vitamin-D was greater than 40. Platelets are elevated at 385,000 hundred eighty five thousand. We started her Eliquis 2.5 last evening as she is presumed to be somewhat hyper coagulable with her history of recent DVT and possible pancreatic cancer mentioned. She is scheduled to have venous duplex ultrasounds of both lower extremities today. If there is no thrombus present I would lean toward the 2.5 mg b.i.d. prophylactic dose. If she does have thrombus then we will need to increase her to 5 mg b.i.d. in the near future. She has intact sensation and motor function of the right foot. She is quite alert and oriented and cheerful today. I reviewed with her use of the arm sling when she is out of bed because of her left clavicle fracture but she does not have to wear the arm sling when she is in bed and she prefers not to. Subjective Subjective Date/Time Seen: 11/02/20 10:54 Objective Data Vital Signs Vital Signs: Vital Signs - 24 hr 11/01/20 11:02 11/01/20 11:15 11/01/20 11:30 Temperature 36.1 C L Pulse Rate 54 L 55 L 49 L Respiratory Rate 6 L 12 8 L Blood Pressure 154/80 H 147/81 H 164/76 H Pulse Oximetry 97 100 100 11/01/20 11:45 11/01/20 12:00 11/01/20 12:15 Temperature 36.3 C L Pulse Rate 48 L 50 L 50 L Respiratory Rate 13 8 L 10 L Blood Pressure 164/76 H 153/82 H 144/79 H Pulse Oximetry 100 100 100 11/01/20 12:30 11/01/20 12:45 11/01/20 13:01 Temperature 36.3 C L 36.3 C L 36.1 C L Pulse Rate 50 L 50 L 52 L Respiratory Rate 10 L 12 14 Blood Pressure 156/71 H 159/72 H 146/72 H Pulse Oximetry 100 98 100 11/01/20 13:30 11/01/20 13:46 11/01/20 14:00 Temperature 36.2 C L Pulse Rate 54 L 55 L Respiratory Rate 14 12 Blood Pressure 153/70 H Pulse Oximetry 95 100 95 11/01/20 14:30 11/01/20 16:00 11/01/20 18:30 Temperature 36.2 C L 36.6 C Pulse Rate 60 59 L 87 Respiratory Rate 14 16 Blood Pressure 125/67 93/63 L Pulse Oximetry 97 94 11/01/20 20:00 11/01/20 20:10 11/01/20 21:38 Temperature 37.2 C Pulse Rate 79 78 77 Respiratory Rate 16 16 Blood Pressure 118/62 Pulse Oximetry 98 98 11/01/20 22:00 11/01/20 23:59 11/02/20 00:00 Temperature Pulse Rate 65 Respiratory Rate 16 16 Blood Pressure Pulse Oximetry 98 96 11/02/20 00:26 11/02/20 03:18 11/02/20 04:00 Temperature 36.2 C L Pulse Rate 66 67 Respiratory Rate 18 16 Blood Pressure 110/58 L Pulse Oximetry 98 98 11/02/20 06:18 11/02/20 08:00 11/02/20 08:08 Temperature 36.9 C 36.1 C L Pulse Rate 66 71 70 Respiratory Rate 16 21 H Blood Pressure 113/67 119/82 Pulse Oximetry 96 95 Intake/Output Intake/Output: Intake & Output 10/30/20 10/31/20 11/01/20 11/02/20 23:59 23:59 23:59 23:59 Intake Total 3215 2340 1100 Output Total 325 1250 300 Balance 2890 1090 800 Meds/Results Medications: Active Medications Generic Name Dose Route Start Last Admin Trade Name Freq PRN Reason Stop Dose Admin Apixaban 2.5 mg 11/01/20 21:00 11/02/20 08:09 Apixaban 2.5 Mg Tablet PO 12/13/20 20:59 2.5 mg Q12HR REY Administration Duloxetine HCl 20 mg 11/01/20 09:00 11/02/20 08:09 Dulox
--- NOTE | 2020-11-02 11:05 | PCPTNOTE ---
On 11/02/20, the student, Gianni Carvajal, provided care and completed [facility] documentation on this patient. I have reviewed the student's documentation and agree with the findings.
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
[2020-11-02 18:32] LABS: Hematocrit 30.9 % (37.0-47.0); Hemoglobin 9.7 g/dL (12.0-15.0)
--- NOTE | 2020-11-02 21:33 | PC.NURSE ---
0.5mg IV dilaudid found in pt med drawer. Medication wasted with 2nd RN Ning Louis
[2020-11-02] MEDS: SENNOSIDES 8.6 MG TABLET PO (21:37)
[2020-11-02] MEDS: ZOLPIDEM TARTRATE (*CRX) 5 MG TABLET 10 MG PO (21:38)
[2020-11-03] VITALS (13 sets, daily range): BP systolic 111–118; BP diastolic 66–73; PULSE 67–88; RESP 18–22; TEMP 36.4–37.2; O2SAT 92–98; BMI 17.6
[2020-11-03] MEDS: HYDROmorphone HCL INJ (*CRX) 1 MG/ML SYR 0.5 MG IV PUSH ×3 (01:58→09:21)
--- NOTE | 2020-11-03 04:58 | PC.NURSE ---
pt requesting dilaudid at this time. pt is drowsy, 89-90 O2% (RA), 10-12 respirations. pt informed it would not be safe to administer narcotics at this time. pt on continuous capnography, will continue to monitor closely.
[2020-11-03 05:56] LABS: Hematocrit 30.7 % (37.0-47.0); Hemoglobin 9.6 g/dL (12.0-15.0); Mean Corpuscular HGB Conc 31.3 g/dl (32-36); Mean Corpuscular Hemoglobin 28.6 pg (26-34); Mean Corpuscular Volume 91.4 fl (80-100); Mean Platelet Volume 9.3 fl (7.4-10.4); Platelet Count Result 299 k/mm3 (150-375); Red Blood Count 3.36 M/mm3 (4.2-5.4); Red Cell Distribution Width 15.6 % (11.5-14.5); White Blood Count 8.8 K/mm3 (4.5-10.0)
[2020-11-03 06:05] LABS: Alanine Aminotransferase 12 U/L (4-35); Albumin Level 2.9 g/dL (3.5-5.1); Alkaline Phosphatase 137 U/L (38-126); Anion Gap 7 mmol/L (8-16); Aspartate Amino Transferase 29 U/L (14-36); Bilirubin,Total 0.6 mg/dL (0.2-1.3); Blood Urea Nitrogen 5 mg/dL (7-17); Calcium 7.9 mg/dL (8.4-10.2); Carbon Dioxide 26 mmol/L (22-30); Chloride 97 mmol/L (98-107); Estimated CRCL calculation 70 ml/min; Estimated Glomerular Filt Rate > 60; Glucose 108 mg/dL (65-110); Potassium 4.1 mmol/L (3.4-5.0); Sodium 130 mmol/L (137-145)
--- NOTE | 2020-11-03 08:45 | PM.PNORT ---
Progress Note: A&P Additional Plan patient is postoperative day 2. After internal fixation of right intertrochanteric hip fracture. She is alert and oriented. She is in good spirits. She has a pillow under the right buttock as her tailbone is getting sore. The skin over her tailbone is a little bit pink. There is no abrasion or excoriation. I am going to ask the wound care nurse to make recommendations as some sort of had the can be applied to her tailbone as she is quite thin and bony in that area and at high risk for pressure sore. Her dressing is dry. There is no significant swelling about the right thigh her hip. Her venous duplex ultrasound studies were negative for DVT in both lower extremities. She has a history of a calf vein DVT on the right back in June involving the soleus vein. I think that Eliquis 2.5 mg twice daily is appropriate for DVT prophylaxis. When she follows up with her primary care physician, if it is felt that she needs to be on something long-term VAC can be instituted at that time. I will plan to keep her on the 2.5 mg twice daily for 6 weeks. I am going to stop her p.r.n. Dilaudid injections and start her on scheduled oxycodone 5 mg q.4 hours with the option of a p.r.n. 5 mg oxycodone every 4 hours as needed for pain. She had been recently taking 15 mg extended release oral morphine q.h.s. for 7 days after her rib fractures. I am not as comfortable provided providing that to her as I am worried about respiratory depression and would like to see if the oxycodone would give her satisfactory pain control. I am not using scheduled Tylenol because of her cirrhosis of the liver. She is on a nicotine patch. For numerous reasons would be best for her to quit smoking at this time and she understands this. Her hemoglobin this morning was 9.6. Yesterday was 9.7. This is up from 7.9 following 1 unit transfusion packed red blood cells yesterday. She is afebrile with stable vital signs and her brought blood pressure and pulse are fine. Her urine grew greater than 100,000 E coli which was sensitive to all antibiotics including ceftriaxone IV. She is currently on IV ceftriaxone and I will defer to the hospitalist service with respect to switching her from the IV ceftriaxone to an appropriate oral antibiotic when they feel indicated. I do not think this patient will be able to return home as she would require 24 hour cane care as she cannot get up and walk by herself due to the left clavicle fracture and need to be partial weight-bearing on the right hip. We will continue with transfers only for the next 6 weeks to avoid excessive stress on the right intertrochanteric hip fracture which could cause collapse. Subjective Subjective Date/Time Seen: 11/03/20 08:45 Objective Data Vital Signs Vital Signs: Vital Signs - 24 hr 11/02/20 11:09 11/02/20 11:25 11/02/20 12:00 Temperature 36.2 C L 36.4 C L 36.3 C L Pulse Rate 66 68 67 Respiratory Rate 16 16 21 H Blood Pressure 111/64 104/66 119/67 Pulse Oximetry 97 95 95 11/02/20 12:25 11/02/20 13:40 11/02/20 16:00 Temperature 36.5 C 36.8 C Pulse Rate 71 64 66 Respiratory Rate 16 16 Blood Pressure 120/71 117/73 Pulse Oximetry 97 96 11/02/20 16:39 11/02/20 20:00 11/02/20 21:30 Temperature 36.2 C L 36.5 C Pulse Rate 71 75 76 Respiratory Rate 21 H 18 Blood Pressure 115/69 136/69 Pulse Oximetry 97 97 11/02/20 21:40 11/03/20 00:00 11/03/20 00:18 Temperature 36.4 C L Pulse Rate 75 70 70 Respiratory Rate 18 Blood Pressure 111/73 Pulse Oximetry 93 11/03/20 04:00 11/03/20 06:19 Temperature 37.2 C Pulse Rate 73 88 Respiratory Rate 18 Blood Pressure 113/70 Pulse Oximetry 92 Intake/Output Intake/Output: Intake & Output 10/31/20 11/01/20 11/02/20 11/03/20 23:59 23:59 23:59 23:59 Intake Total 3215 2340 1940 1320 Output Total 325 1250 300 Balance 2890 1090 1640 1320 Meds/Results Medications: Active Medications Generic
[2020-11-03] MEDS: GABAPENTIN 300 MG CAPSULE 900 MG PO ×3 (09:19→16:49)
[2020-11-03] MEDS: NEOMYCIN/POLYMYXIN/BACITRACIN OINTMENT 15 GM TUBE 1 APPLIC TOPICAL (09:20)
[2020-11-03] MEDS: DULoxetine HCL 20 MG CAPSULE.DR PO (09:20)
[2020-11-03] MEDS: PROPRANOLOL HCL 20 MG TABLET PO ×2 (09:20→20:56)
[2020-11-03] MEDS: APIXABAN 2.5 MG TABLET PO ×2 (09:20→20:56)
[2020-11-03] MEDS: PANTOPRAZOLE 40 MG TABLET PO (09:20)
[2020-11-03] MEDS: NICOTINE (*PBKC) 21 MG PATCH 1 PATCH TRANSDERM (09:21)
[2020-11-03] MEDS: oxyCODONE HCL (*CRX) 5 MG TAB IR PO ×6 (11:40→23:54)
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
[2020-11-03] MEDS: SIMETHICONE 80 MG TAB.CHEW PO ×2 (16:49→20:56)
[2020-11-03] MEDS: SENNOSIDES 8.6 MG TABLET PO (20:56)
[2020-11-04] VITALS (14 sets, daily range): BP systolic 100–110; BP diastolic 60–79; PULSE 69–89; RESP 14–22; TEMP 36–36.6; O2SAT 94–99
[2020-11-04] MEDS: oxyCODONE HCL (*CRX) 5 MG TAB IR PO ×7 (03:10→23:24)
[2020-11-04 06:05] LABS: Basophils Percent Auto 0.4 % (0.2-1.2); Eosinophils Absolute Auto 0.2 K/mm3 (0-0.3); Eosinophils Percent Auto 2.4 % (0-4.4); Hematocrit 29.5 % (37.0-47.0); Hemoglobin 9.1 g/dL (12.0-15.0); Immature Granulocyte Absolute 0.03 K/mm3 (0.00-0.031); Immature Granulocyte Percent A 0.4 % (0-0.5); Lymphocytes Absolute Auto 1.28 K/mm3 (0.9-3.2); Lymphocytes Percent Auto 15.5 % (18.3-44.2); Mean Corpuscular HGB Conc 30.8 g/dl (32-36); Mean Corpuscular Hemoglobin 28.5 pg (26-34); Mean Corpuscular Volume 92.5 fl (80-100); Mean Platelet Volume 9.5 fl (7.4-10.4); Monocytes Absolute Auto 1.1 K/mm3 (0.1-0.6); Monocytes Percent Auto 12.7 % (2.6-8.5); Neutrophils Absolute Auto 5.7 K/mm3 (1.3-6.7); Neutrophils Percent Auto 68.6 % (45.5-73.1); Platelet Count Result 260 k/mm3 (150-375); Red Blood Count 3.19 M/mm3 (4.2-5.4); Red Cell Distribution Width 15.4 % (11.5-14.5); White Blood Count 8.3 K/mm3 (4.5-10.0)
[2020-11-04 06:12] LABS: Anion Gap 8 mmol/L (8-16); Blood Urea Nitrogen 4 mg/dL (7-17); Calcium 8.1 mg/dL (8.4-10.2); Carbon Dioxide 26 mmol/L (22-30); Chloride 98 mmol/L (98-107); Estimated CRCL calculation 70 ml/min; Estimated Glomerular Filt Rate > 60; Glucose 115 mg/dL (65-110); Potassium 3.6 mmol/L (3.4-5.0); Sodium 132 mmol/L (137-145)
[2020-11-04] MEDS: GABAPENTIN 300 MG CAPSULE 900 MG PO ×3 (08:08→16:26)
[2020-11-04] MEDS: DULoxetine HCL 20 MG CAPSULE.DR PO (08:08)
[2020-11-04] MEDS: APIXABAN 2.5 MG TABLET PO ×2 (08:08→22:15)
[2020-11-04] MEDS: PANTOPRAZOLE 40 MG TABLET PO (08:09)
[2020-11-04] MEDS: SIMETHICONE 80 MG TAB.CHEW PO ×4 (08:09→22:15)
[2020-11-04] MEDS: PROPRANOLOL HCL 20 MG TABLET PO (08:09)
[2020-11-04] MEDS: NEOMYCIN/POLYMYXIN/BACITRACIN OINTMENT 15 GM TUBE 1 APPLIC TOPICAL (08:09)
[2020-11-04] MEDS: NICOTINE (*PBKC) 21 MG PATCH 1 PATCH TRANSDERM (08:10)
[2020-11-04] MEDS: oxyCODONE HCL (*CRX) 10 MG TAB SR 12HR PO ×2 (12:14→22:14)
[2020-11-04] MEDS: CYCLOBENZAPRINE HCL 10 MG TABLET PO ×2 (12:15→16:27)
--- NOTE | 2020-11-04 13:07 | WPDCDIQUERY2 ---
CDI Query Clarification Request -UTI documented by EDP -10/31 urine culture growing >100,000 E Coli -Pt is on Ceftriaxone -There has been no further documentation of UTI. Please clarify if UTI was ruled in or ruled out. <Mariel Bravo RN - Last Filed: 11/04/20 13:11> Clarified Diagnosis (1) Urinary tract infection: Qualifiers: Hematuria presence: without hematuria Urinary tract infection type: site unspecified Qualified Code(s): N39.0 - Urinary tract infection, site not specified <Mariel Bravo RN - Last Filed: 11/04/20 13:11> Code(s): N39.0 - Urinary tract infection, site not specified <Mariel Bravo RN - Last Filed: 11/04/20 13:11> Status: Acute <Mariel Bravo RN - Last Filed: 11/04/20 13:11> Assessment and Plan: Patient with a UTI secondary to E coli was treated with ceftriaxone <Tj Barroso MD - Last Filed: 11/22/20 14:56>
--- NOTE | 2020-11-04 13:54 | PM.PNORT ---
Progress Note: A&P Additional Plan POD 3 alert hgb-9.1. pain meds changed yesterday -pt having some increase in pain but tolerable, wds-dry. skin over left clavicle fx is intact, no break down, SS working on rehab placement-poss go tomorrow Subjective Subjective Date/Time Seen: 11/04/20 13:54 Objective Data Vital Signs Vital Signs: Vital Signs - 24 hr 11/03/20 14:42 11/03/20 16:00 11/03/20 20:00 Temperature 36.8 C 36.8 C Pulse Rate 85 85 80 Respiratory Rate 18 22 H Blood Pressure 113/66 117/67 Pulse Oximetry 96 97 11/03/20 20:46 11/03/20 20:56 11/04/20 00:00 Temperature 36.0 C L Pulse Rate 80 74 Respiratory Rate 18 Blood Pressure 107/62 Pulse Oximetry 97 97 11/04/20 02:17 11/04/20 04:00 11/04/20 08:00 Temperature 36.1 C L Pulse Rate 71 83 Respiratory Rate 22 H Blood Pressure 110/60 Pulse Oximetry 94 96 11/04/20 08:09 11/04/20 08:52 11/04/20 10:00 Temperature 36.6 C Pulse Rate 71 73 77 Respiratory Rate 14 18 Blood Pressure 107/68 Pulse Oximetry 97 99 11/04/20 12:00 Temperature Pulse Rate 75 Respiratory Rate Blood Pressure Pulse Oximetry Intake/Output Intake/Output: Intake & Output 11/01/20 11/02/20 11/03/20 11/04/20 23:59 23:59 23:59 23:59 Intake Total 2340 1940 2390 630 Output Total 1250 392 931 2507 Balance 1090 1640 1400 -370 Meds/Results Medications: Active Medications Generic Name Dose Route Start Last Admin Trade Name Freq PRN Reason Stop Dose Admin Acetaminophen 650 mg 11/04/20 14:00 Acetaminophen 325 Mg Tablet PO Q8H REY Apixaban 2.5 mg 11/01/20 21:00 11/04/20 08:08 Apixaban 2.5 Mg Tablet PO 12/13/20 20:59 2.5 mg Q12HR REY Administration Cyclobenzaprine HCl 10 mg 11/04/20 11:35 11/04/20 12:15 Cyclobenzaprine Hcl 10 Mg Tablet PO 10 mg BID REY Administration Duloxetine HCl 20 mg 11/01/20 09:00 11/04/20 08:08 Duloxetine Hcl 20 Mg Capsule. PO 20 mg QAM REY Administration Gabapentin 900 mg 10/31/20 20:00 11/04/20 12:15 Gabapentin 300 Mg Capsule PO 900 mg TID REY Administration Ceftriaxone Sodium/Dextrose 1 gm in 50 mls @ 100 mls/hr 11/01/20 21:00 11/03/20 21:30 Rocephin 1 Gm/D5w 50 Ml IVPB Infused Q24H REY Infusion Naloxone HCl 0.1 mg 11/01/20 12:33 Naloxone Hcl 0.4 Mg/Ml Vial IV PUSH Q2M PRN Opiate Reversal Neomycin/Polymyxin/Bacitracin 1 applic 11/01/20 09:00 11/04/20 08:09 Neomycin/Polymyxin/Bacitracin Ointment 15 Gm Tube TOPICAL 1 applic QAM REY Administration Nicotine 1 patch 11/03/20 09:00 11/04/20 08:10 Nicotine (*Pbkc) 21 Mg Patch TRANSDERM 1 patch QAM REY Administration Non-Formulary Medication 72 mcg 10/31/20 19:26 Linaclotide [Linzess] PO DAILY PRN Constipation Ondansetron HCl 4 mg 10/31/20 14:05 Ondansetron Inj 4 Mg/2 Ml Vial IV PUSH Q4H PRN Nausea Oxycodone HCl 5 mg 11/03/20 10:15 11/04/20 10:16 Oxycodone Hcl (*Crx) 5 Mg Tab Ir PO 5 mg Q4H REY Administration Oxycodone HCl 5 mg 11/03/20 10:15 11/04/20 08:17 Oxycodone Hcl (*Crx) 5 Mg Tab Ir PO 5 mg Q4H PRN Administration Pain Rated 7-10 Oxycodone HCl 10 mg 11/04/20 11:35 11/04/20 12:14 Oxycodone Hcl (*Crx) 10 Mg Tab Sr 12hr PO 10 mg Q12HR REY Administration Pantoprazole Sodium 40 mg 11/01/20 09:00 11/04/20 08:09 Pantoprazole 40 Mg Tablet PO 40 mg DAILY REY Administration Propranolol HCl 20 mg 10/31/20 21:00 11/04/20 08:09 Propranolol Hcl 20 Mg Tablet PO 20 mg Q12HR REY Administration Senna 8.6 mg 10/31/20 21:00 11/03/20 20:56 Sennosides 8.6 Mg Tablet PO 8.6 mg HS REY Administration Simethicone 80 mg 11/03/20 17:00 11/04/20 12:15 Simethicone 80 Mg Tab.Chew PO 80 mg QID REY Administration Zolpidem Tartrate 10 mg 10/31/20 19:26 11/02/20 21:38 Zolpidem Tartrate (*Crx) 5 Mg Tablet PO 10 mg HS PRN Administration insomnia Radio
[2020-11-04] MEDS: ACETAMINOPHEN 325 MG TABLET 650 MG PO ×2 (14:26→22:14)
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
[2020-11-04] MEDS: SENNOSIDES 8.6 MG TABLET PO (22:17)
[2020-11-05 00:10] VITALS: BP 109/62; PULSE 85; RESP 16; TEMP 36.1; O2SAT 97
[2020-11-05] MEDS: oxyCODONE HCL (*CRX) 5 MG TAB IR PO ×4 (03:30→12:42)
[2020-11-05 04:27] VITALS: BP 104/59; PULSE 88; RESP 22; TEMP 36.6; O2SAT 98
[2020-11-05] MEDS: ACETAMINOPHEN 325 MG TABLET 650 MG PO (06:03)
[2020-11-05] MEDS: GABAPENTIN 300 MG CAPSULE 900 MG PO ×2 (08:08→12:11)
[2020-11-05 08:09] VITALS: PULSE 80
[2020-11-05] MEDS: NEOMYCIN/POLYMYXIN/BACITRACIN OINTMENT 15 GM TUBE 1 APPLIC TOPICAL (08:09)
[2020-11-05] MEDS: PROPRANOLOL HCL 20 MG TABLET PO (08:09)
[2020-11-05] MEDS: NICOTINE (*PBKC) 21 MG PATCH 1 PATCH TRANSDERM (08:09)
[2020-11-05] MEDS: DULoxetine HCL 20 MG CAPSULE.DR PO (08:09)
[2020-11-05] MEDS: SIMETHICONE 80 MG TAB.CHEW PO ×2 (08:09→12:11)
[2020-11-05] MEDS: APIXABAN 2.5 MG TABLET PO (08:09)
[2020-11-05] MEDS: CYCLOBENZAPRINE HCL 10 MG TABLET PO (08:09)
[2020-11-05] MEDS: PANTOPRAZOLE 40 MG TABLET PO (08:09)
[2020-11-05] MEDS: oxyCODONE HCL (*CRX) 10 MG TAB SR 12HR PO (08:13)
[2020-11-05 10:00] VITALS: BP 107/56; PULSE 71; RESP 18; TEMP 36.4; O2SAT 97
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
== END 2020-11-05 13:00 | DRG 481 ==
LOC: ANHED 14:03 → ANH2MED 16:27
PROVIDERS: Internal Medicine; Nurse Practitioner; Orthopaedic Surgery; Admitting Provider Internal Medicine; Emergency Provider Emergency Medicine; PCP Internal Medicine; Visit Provider Family Medicine
PROC: 0QS604Z Reposition Right Upper Femur with Internal Fixation Device, Open Approach (ICD-10-PCS; principal; 2020-11-01 08:30)
DX: S72.141A Displaced intertrochanteric fracture of right femur, initial encounter for closed fracture (principal); S22.42XA Multiple fractures of ribs, left side, initial encounter for closed fracture; K76.6 Portal hypertension; I85.10 Secondary esophageal varices without bleeding; E46 Unspecified protein-calorie malnutrition; Z68.1 Body mass index [BMI] 19.9 or less, adult; D62 Acute posthemorrhagic anemia; R64 Cachexia; N39.0 Urinary tract infection, site not specified; B96.20 Unspecified Escherichia coli [E. coli] as the cause of diseases classified elsewhere; S00.83XA Contusion of other part of head, initial encounter; S42.002A Fracture of unspecified part of left clavicle, initial encounter for closed fracture; W18.30XA Fall on same level, unspecified, initial encounter; K86.89 Other specified diseases of pancreas; K70.31 Alcoholic cirrhosis of liver with ascites; D64.89 Other specified anemias; K21.9 Gastro-esophageal reflux disease without esophagitis; G62.9 Polyneuropathy, unspecified; F10.20 Alcohol dependence, uncomplicated; F32.9 Major depressive disorder, single episode, unspecified; F41.9 Anxiety disorder, unspecified; F17.210 Nicotine dependence, cigarettes, uncomplicated; Z79.01 Long term (current) use of anticoagulants; Z86.718 Personal history of other venous thrombosis and embolism; V89.2XXA Person injured in unspecified motor-vehicle accident, traffic, initial encounter
CPT/HCPCS: 36415; 36430; 70450; 70486; 71045; 72125; 73502; 76705; 80048; 80053; 81001; 82306; 82550; 83605; 83735; 84443; 85014; 85018; 85025; 85027; 85610; 85730; 86850; 86900; 86901; 86920; 87040; 87077; 87086; 87088; 87186; 93005; 93970; 96361; 96374; 96375; 97110; 97163; 97166; 97530; 97535; 99285; A4565; A9270; C1713; J0131; J0690; J0696; J1170; J2270; J2405; J3010; J3370; J3480; J7030; J7120; P9016

== ENCOUNTER 2020-11-27 12:37 | Outpatient (CLI) | payer OTHER, MEDICARE, MEDICAID, SELFPAY ==
--- NOTE | ~2020-11-27 | US_ITS ---
US abdomen limited DATE: 11/27/2020 15:20 INDICATION: Alcoholic cirrhosis of liver, ascites TECHNIQUE: Real-time imaging of the abdomen and all 4 quadrants COMPARISON: None FINDINGS: There is minimal ascites, not sufficient for paracentesis. IMPRESSION: Minimal ascites Reviewed, dictated and finalized at [facility]. Reviewed, dictated and finalized at [facility]. IMPRESSION: Minimal ascites
== END 2020-11-27 12:38 | disposition home or self-care (01) ==
LOC: ANHIMG 12:47
PROVIDERS: PCP Internal Medicine; Visit Provider Internal Medicine
DX: R18.8 Other ascites (principal)
CPT/HCPCS: 76705

== ENCOUNTER 2021-08-26 13:59 | Outpatient (CLI) | payer OTHER, SELFPAY ==
[2021-08-26 14:36] LABS: Lactic Acid 0.9 mmol/L (0.7-2.0)
[2021-08-26 14:37] LABS: Ammonia < 9 umol/L (9-30)
[2021-08-26 14:38] LABS: Alanine Aminotransferase 42 U/L (6-35); Albumin Level 4.6 g/dL (3.5-5.1); Alkaline Phosphatase 129 U/L (38-126); Anion Gap 8 mmol/L (8-16); Aspartate Amino Transferase 132 U/L (14-36); Bilirubin,Total 0.5 mg/dL (0.2-1.3); Blood Urea Nitrogen 5 mg/dL (7-17); Calcium 9.1 mg/dL (8.4-10.2); Carbon Dioxide 30 mmol/L (22-30); Chloride 101 mmol/L (98-107); Estimated Glomerular Filt Rate > 60; Glucose 95 mg/dL (65-110); Potassium 3.5 mmol/L (3.4-5.0); Sodium 139 mmol/L (137-145)
== END 2021-08-26 14:00 | disposition home or self-care (01) ==
PROVIDERS: PCP Internal Medicine; Visit Provider Family Medicine
DX: R94.5 Abnormal results of liver function studies (principal); K72.10 Chronic hepatic failure without coma; K86.9 Disease of pancreas, unspecified
CPT/HCPCS: 36415; 80053; 82140; 82248; 83605

== ENCOUNTER 2021-11-17 11:35 | Emergency (ER) | payer OTHER, SELFPAY ==
[2021-11-17] VITALS (13 sets, daily range): BP systolic 147–168; BP diastolic 88–90; PULSE 70–84; RESP 14–22; TEMP 36.1; O2SAT 92–100
--- NOTE | ~2021-11-17 | CT_ITS ---
EXAMINATION: CT abdomen pelvis w con INDICATION: Abdominal pain, elevated lipase TECHNIQUE: Computed tomographic images of the abdomen and pelvis were obtained after the administrati on of 100 cc of Omnipaque 350 intravenous contrast. The dose-length product (DLP) was 245.61 mGy-cm. Automated exposure control and iterative reconstruction technique were employed. COMPARISON: 10/25/2020 FINDINGS: Minimal dependent atelectasis is present in the lung bases. The heart size is normal. Bilat eral breast implants are noted with intracapsular rupture. There is nodularity of the liver surface. The gallbladder is mildly distended. The spleen and adrenal glands are normal. There is a chronic 3.9 cm fluid collection abutting the medial head of the pancreas which demonstrates interval enlargement since the comparison examination. There is a loculated fluid collection measuring 3.6 cm lateral to the head of the pancreas which is new since the comparison examination. Punctate calcifications of th e pancreas are consistent with chronic pancreatitis. There is a large volume of ascites which limits assessment for peripancreatic inflammatory change. Hypoattenuating lesions in the kidneys, measuring up to 5 mm on the right, are too small to characterize but likely represent cysts. No pathologically enlarged abdominal or pelvic lymph nodes are identified. There is no free intraperitoneal gas or evid ence of bowel obstruction. There is antegrade intramedullary jonathan and interlocking intratrochanteric s crew fixation of the right femur. There is a chronic compression fracture of L2. A burst deformity o f the T11 vertebral body is new since the comparison examination. IMPRESSION: 1. Cirrhosis with large volume of ascites. 2. Fluid collections adjacent to the head of the pancreas. One is enlarged but chronic, consistent wi th a pseudocyst. The other is new since the comparison examination and could reflect a pseudocyst hakeem cristhian acute peripancreatic fluid collection. 3. Gallbladder distention, possibly due to chronic liver disease. Reviewed, dictated and finalized at [facility]. IMPRESSION: 1. Cirrhosis with large volume of ascites. 2. Fluid collections adjacent to the head of the pancreas. One is enlarged but chronic, consistent with a pseudocyst. The other is new since the comparison ex amination and could reflect a pseudocyst versus acute peripancreatic fluid james ection. 3. Gallbladder distention, possibly due to chronic liver disease.
--- NOTE | ~2021-11-17 | US_ITS ---
EXAMINATION: US paracentesis abd w/image DATE: 11/17/2021 16:21 INDICATION: Ascites. TECHNIQUE: The procedure and its risks and benefits were discussed with the patient. Potential risks discussed included bleeding and infection. The skin was prepped and draped in sterile fashion. 1% lid ocaine was used for local anesthesia. Under ultrasound guidance, a 5 Fr catheter with trochar was adv anced into the ascites in the left lower quadrant. Fluid was aspirated into vacuum bottles. The jennifer ter was removed, and a dressing was applied. There were no immediate complications. FINDINGS: Ultrasound images demonstrate ascites and the catheter within the fluid. IMPRESSION: 1. Successful ultrasound-guided paracentesis yielding 1550 mL of clear light yellow fluid. Reviewed, dictated and finalized at [facility]. IMPRESSION: 1. Successful ultrasound-guided paracentesis yielding 1550 mL of clear light y ellow fluid.
[2021-11-17 12:02] LABS: Basophils Percent Auto 0.7 % (0.2-1.2); Eosinophils Absolute Auto 0.2 K/mm3 (0-0.3); Eosinophils Percent Auto 2.4 % (0-4.4); Hematocrit 36.4 % (37.0-47.0); Hemoglobin 11.6 g/dL (12.0-15.0); Immature Granulocyte Absolute 0.02 K/mm3 (0.00-0.031); Immature Granulocyte Percent A 0.3 % (0-0.5); Lymphocytes Absolute Auto 1.49 K/mm3 (0.9-3.2); Lymphocytes Percent Auto 24.3 % (18.3-44.2); Mean Corpuscular HGB Conc 31.9 g/dl (32-36); Mean Corpuscular Hemoglobin 32.4 pg (26-34); Mean Corpuscular Volume 101.7 fl (80-100); Mean Platelet Volume 9.2 fl (7.4-10.4); Monocytes Absolute Auto 0.8 K/mm3 (0.1-0.6); Monocytes Percent Auto 13.7 % (2.6-8.5); Neutrophils Absolute Auto 3.6 K/mm3 (1.3-6.7); Neutrophils Percent Auto 58.6 % (45.5-73.1); Platelet Count Result 230 k/mm3 (150-375); Red Blood Count 3.58 M/mm3 (4.2-5.4); White Blood Count 6.1 K/mm3 (4.5-10.0)
[2021-11-17 12:16] LABS: Alanine Aminotransferase 28 U/L (6-35); Albumin Level 3.5 g/dL (3.5-5.1); Alkaline Phosphatase 185 U/L (38-126); Anion Gap 12 mmol/L (8-16); Aspartate Amino Transferase 93 U/L (14-36); Bilirubin,Total 0.7 mg/dL (0.2-1.3); Blood Urea Nitrogen 4 mg/dL (7-17); Calcium 8.8 mg/dL (8.4-10.2); Carbon Dioxide 25 mmol/L (22-30); Chloride 103 mmol/L (98-107); Estimated CRCL calculation 67 ml/min; Estimated Glomerular Filt Rate > 60; Glucose 117 mg/dL (65-110); Lipase 821 U/L (23-300); Potassium 4.1 mmol/L (3.4-5.0); Sodium 140 mmol/L (137-145)
[2021-11-17 12:27] LABS: Appearance Urine Clear (Clear); Bilirubin Urine Negative (Negative); Blood Urine Negative (Negative); Color Urine Light Yellow (Yellow); Glucose Urine UA Negative (Negative); Ketones Urine Negative (Negative); Leukocyte Esterase Ur Trace LEU/UL (Negative); Nitrate Urine Negative (Negative); Protein Urine Negative (Negative)
[2021-11-17 12:30] LABS: RBC Urine 0-2 /hpf (0-2); Squamous Epithelial Cell Urine Rare /hpf (Few)
[2021-11-17 12:41] LABS: Add Urine Microscopic? YES
[2021-11-17] MEDS: ONDANSETRON INJ 4 MG/2 ML VIAL IV PUSH (13:05)
[2021-11-17] MEDS: HYDROmorphone HCL INJ (*CRX) 1 MG/ML SYR 0.5 MG IV PUSH (13:05)
--- NOTE | 2021-11-17 13:10 | ED.ABDPAIN ---
HPI - Abdominal Pain General Chief Complaint: Abdominal Pain Stated Complaint: needs belly tapped Time Seen by Provider: 11/17/21 12:34 Source: patient, RN notes reviewed and old records reviewed Mode of arrival: ambulatory Limitations: no limitations History of Present Illness HPI narrative: This is a 61 year old female with history of cirrhosis with ascites who presents for evaluation abdominal pain and distention. She states she has not had to deal with ascites in 2-3 years. She starting notices swelling and abdominal pain approximately 5-6 weeks ago. She reports left upper abdominal pain that she describes as intermittent and sharp. She takes hydrocodone three times and day and that does seem to help her pain. She has not had any pain medication since this morning so her pain is more severe now. She denies nausea, vomiting, diarrhea, hematemesis or melena. She was told she had low grade temperature of 99F at her PCP office today. She states she has not drank alcohol in 2 years MD elicited complaint: abdominal pain Related Data Home Medications Medication Instructions Recorded Confirmed linaclotide 72 mcg capsule 72 mcg PO DAILY PRN Constipation 06/04/19 02/03/21 (Linzess) pantoprazole 40 mg tablet,delayed 40 mg PO DAILY 07/14/20 02/03/21 release propranolol 20 mg tablet 20 mg PO BID 07/14/20 02/03/21 furosemide 20 mg tablet (Lasix) 20 mg PO BID 01/06/21 02/03/21 apixaban 5 mg tablet (Eliquis) 5 mg PO BID 05/26/21 Allergies Allergy/AdvReac Type Severity Reaction Status Date / Time No Known Allergies Allergy Mild Verified 11/17/21 11:42 Review of Systems Review of Systems: All systems reviewed & are unremarkable except as noted in HPI and below Constitutional: Constitutional: Denies chills, Denies fatigue, Reports fever(s) and Denies weakness ENT: Denies dizziness, Denies nasal congestion and Denies sore throat Cardiovascular: Cardiovascular: Denies chest pain and Denies rapid heart rate Respiratory: Respiratory: Denies chest congestion and Denies cough Gastrointestinal: Gastrointestinal: Reports abdominal pain, Denies nausea and Denies vomiting PMFSH Past Medical History Medical History Alcoholism Anemia Anxiety Broken hip Right Chlamydia Chronic anemia Cirrhosis of liver Colonoscopy planned 2015 Depression Esophageal varices in alcoholic cirrhosis Gall stones GERD (gastroesophageal reflux disease) Hypertension Hyponatremia Insomnia Lower extremity surgery planned Right Migraine Neuropathy Normal endoscopy 2014 Pancreatic mass S/P abdominal paracentesis Several Thyroid disease Surgical History Surgical History H/O breast augmentation H/O dilation and curettage H/O endoscopy H/O tubal ligation BL Hx of colonoscopy Family History Family History Mother Patient's mother is in good health Cerebrovascular accident Family history of heart disease in male family member before age 55 Father Family history of heart disease in male family member before age 55 Sibling TIA (transient ischemic attack) Social History Social History (Updated 02/03/21 @ 14:44 by Adriana Fermin [facility]) Social History: The patient has 1 daughter. The patient is disabled. The patient is . The patient does not have a durable power finance attorney for healthcare. She is a full code. 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 Her sister Nolvia has been talking to the patient about becoming her power finance attorney. Smoking packs per day: 1 Smoking cigarettes per day: 20.0 Years smoked: 30 Smoking pack-years: 30.00 Smoking status: Current every day smoker Tobacco type: cigarettes Second hand tobacco smoke exposure: Yes Alcohol intake: former Substance use: never Substance use type: does not use Additional livin
[2021-11-17 13:58] LABS: Magnesium 1.2 mg/dL (1.6-2.3)
[2021-11-17 14:05] LABS: INR 1.2; Prothrombin Time 14.9 Seconds (11.1-14.7)
[2021-11-17 14:06] LABS: Ammonia < 9 umol/L (9-30); Partial Thromboplastin Time 27.6 SECONDS (22.3-36.8)
[2021-11-17 14:27] LABS: SARS-CoV-2 RNA PCR Negative
--- NOTE | 2021-11-17 16:42 | PC.NURSE ---
Pt reports she can't stay in the hospital due to taking care of sister at home. States she will follow up with her pmd.
[2021-11-17 20:54] LABS: Appearance Peritoneal Fluid Hazy (Clear); Color Peritoneal Fluid Yellow (Colorless); Nucleated Cells Peritoneal Flu 159 /uL (0-500); RBC Peritoneal Fluid 122 /uL (0-100000); Source Peritoneal Fluid Peritoneal Fluid
[2021-11-17 20:57] LABS: Lymphocytes Peritoneal Fluid 26 %; Neutrophils Peritoneal Fluid 0 % (0-25)
[2021-11-17 20:58] LABS: Macrophages Peritoneal Fluid 69 %; Mesothelial Cells Peritoneal Fluid 5 %
[2021-11-20 15:11] LABS: Glucose Peritoneal Fluid 99 mg/dL; LDH Peritoneal Fluid 29 U/L (<63); Total Protein Peritoneal Fluid <3.0 g/dL
[2021-11-22 11:50] LABS: Albumin Peritoneal Fluid 0.6 g/dL
== END 2021-11-17 16:45 | disposition left against medical advice (07) ==
PROVIDERS: Emergency Medicine; Emergency Provider General Practice; PCP Family Medicine
DX: K70.31 Alcoholic cirrhosis of liver with ascites (principal); K85.90 Acute pancreatitis without necrosis or infection, unspecified; Z20.822 Contact with and (suspected) exposure to COVID-19; F10.20 Alcohol dependence, uncomplicated; D64.9 Anemia, unspecified; I10 Essential (primary) hypertension; G62.9 Polyneuropathy, unspecified; E07.9 Disorder of thyroid, unspecified; K21.9 Gastro-esophageal reflux disease without esophagitis; F17.210 Nicotine dependence, cigarettes, uncomplicated; Y90.9 Presence of alcohol in blood, level not specified
CPT/HCPCS: 36415; 49083; 74177; 80053; 81001; 82042; 82140; 82945; 83615; 83690; 83735; 84157; 85025; 85610; 85730; 87070; 87075; 87205; 88108; 88305; 89051; 96374; 96375; 99284; C9803; J1170; J2405; Q9967; U0003; U0005

== ENCOUNTER 2022-05-13 15:36 | Inpatient (IN) | payer MEDICARE, MEDICAID, SELFPAY ==
[2022-05-13] VITALS (10 sets, daily range): BP systolic 92–116; BP diastolic 70–86; PULSE 49–73; RESP 13–29; TEMP 36.2–36.6; O2SAT 97–100; BMI 19.8
--- NOTE | ~2022-05-13 | US_ITS ---
EXAMINATION: US paracentesis abd w/image DATE: 05/14/2022 12:40 INDICATION: Ascites. TECHNIQUE: The procedure and its risks and benefits were discussed with the patient. Potential risks discussed included bleeding and infection. The skin was prepped and draped in sterile fashion. 1% lid ocaine was used for local anesthesia. Under ultrasound guidance, a 5 Fr catheter with trochar was adv anced into the ascites in the right lower quadrant. Fluid was aspirated into vacuum bottles. The cath eter was removed, and a dressing was applied. There were no immediate complications. FINDINGS: Ultrasound images demonstrate ascites and the catheter within the fluid. IMPRESSION: 1. Successful ultrasound-guided paracentesis yielding 5000 mL of yellowish fluid. Reviewed, dictated and finalized at location A. IMPRESSION: 1. Successful ultrasound-guided paracentesis yielding 5000 mL of yellowish flu id.
--- NOTE | ~2022-05-13 | CT_ITS ---
EXAMINATION: CTA brain carotid DATE: 05/16/2022 15:26 INDICATION: Cerebral aneurysm. TECHNIQUE: Computed tomographic angiography (CTA) of the head was performed without and with 95 mL Om nipaque-350 intravenous contrast. CTA of the neck was performed with intravenous contrast. Automated exposure control and iterative reconstruction technique were employed. The dose-length product was 14 66.48 mGy-cm. Maximum intensity projection and volume rendered 3D-reconstructions were created by the technologist on a separate workstation. COMPARISON: Head CT 10/31/2020, brain MRI 05/15/2022, chest CT 10/25/2020 FINDINGS: HEAD CTA: There is a small old infarct in right cerebellum. There is no intracranial hemorrhage, acut e infarction, or abnormal intracranial mass lesion. There are scattered areas of low attenuation in t he cerebral white matter, which is within normal limits for the patient's age. The ventricles are nor mal in size. There are likely changes of ocular lens replacement surgeries. There is an old blowout f racture of medial wall of right orbit. There is an old blowout fracture of floor of left orbit. The m astoid air cells are normal. There is cerumen in the external auditory canals bilaterally. Left verte bral artery is dominant. There is no significant stenosis of basilar artery or the posterior cerebral arteries. There is no significant stenosis of intracranial internal carotid arteries or anterior or middle cerebral arteries. There is a 7 x 5 x 5 mm saccular aneurysm of anterior communicating artery. There is a 5 x 4 x 3 mm saccular aneurysm of right middle cerebral artery. NECK CTA: There is mild emphysema. There are patchy groundglass and airspace opacities in the upper l obes. There are bilateral breast implants with intracapsular ruptures. There are no pathologically en larged lymph nodes. There is no significant stenosis of the vertebral arteries. There is plaque in th e proximal internal carotid arteries. There is 0% stenosis of the proximal right internal carotid art erin relative to normal distal artery lumen diameter (NASCET criteria). There is 0% stenosis of the pr oximal left internal carotid artery relative to normal distal artery lumen diameter. There is severe cervical spondylosis. There are compression fractures of C7 and T1 with 1/5 loss of height. There is a compression fracture of T3 with less than 1/5 loss of height. IMPRESSION: 1. Small old infarct in right cerebellum. 2. 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 3. 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 4. Patchy groundglass and airspace opacities in the upper lobes of the lungs, consistent with atelect asis versus pneumonia. 5. Mild emphysema. 6. C7-T1 compression fractures, new from 10/25/2020, likely subacute or chronic. 7. 0% stenosis of the proximal internal carotid arteries relative to normal distal artery lumen diame ters (NASCET criteria). Reviewed, dictated and finalized at location E. IMPRESSION: 1. Small old infarct in right cerebellum. 2. 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 3. 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 4. Patchy groundglass and airspace opacities in the upper lobes of the lungs, c onsistent with atelectasis versus pneumonia. 5. Mild emphysema. 6. C7-T1 compression fractures, new from 10/25/2020, likely subacute or chronic. 7. 0% stenosis of the proximal internal carotid arteries relative to normal dis tamica artery lumen diameters (NASCET criteria).
--- NOTE | ~2022-05-13 | CT_ITS ---
EXAMINATION: CT abdomen pelvis wo con DATE: 05/13/2022 18:24 INDICATION: Abdominal distention, pain. Ascites. TECHNIQUE: Computed tomography (CT) of the abdomen and pelvis was performed without intravenous contr ast. Automated exposure control and iterative reconstruction technique were employed. Exam dose: 295 .84 mGy-cm total exam DLP. COMPARISON: 11/17/2021 CT abdomen pelvis FINDINGS: There are extensive patchy bilateral lower lung infiltrates and/atelectasis. Heart size is within normal range. There are coronary artery calcifications. No pericardial or pleura l effusion. Bilateral breast implants. There is very prominent ascites of the abdomen and pelvis. Small liver with prominent surface nodularity consistent with cirrhosis. There are multiple dependent gallstones. Splenic size is within normal range. Multiple pancreatic calcifications, consistent with chronic pancreatitis. Enlarged partially peripherally calcified encapsulated fluid collection along the left side of the pa ncreatic head, currently measuring approximately 4.8 x 5.6 cm versus 4 cm x 4.3 cm on 11/17/2021. The adrenal glands and kidneys are unremarkable. There is calcification but normal caliber of the abdominal aorta and iliac and femoral arteries. No p eriaortic or aortocaval or pelvic lymphadenopathy is evident. The uterus and adnexal areas are unremarkable. Osteopenia. Multiple subacute and old rib fractures are noted bilaterally. Evidence of old sternal fracture. Burst fracture deformity of T11. Mild anterior wedge compression fracture deformity of T10. Moderate anterior wedge compression fracture deformity of L2. These are all stable since 11/17/2021. Compression screw and intramedullary jonathan of proximal right femur. IMPRESSION: Chronic severe ascites Cirrhosis of the liver Chronic pancreatitis Increased size of encapsulated partially calcified cystic lesion at the left side of the pancreatic h ead Cholelithiasis Extensive patchy bilateral pulmonary infiltrate and/or atelectasis Reviewed, dictated and finalized at Location A. Reviewed, dictated and finalized at location A. IMPRESSION: Chronic severe ascites Cirrhosis of the liver Chronic pancreatitis Increased size of encapsulated partially calcified cystic lesion at the left si de of the pancreatic head Cholelithiasis Extensive patchy bilateral pulmonary infiltrate and/or atelectasis
--- NOTE | ~2022-05-13 | US_ITS ---
EXAMINATION: US paracentesis abd w/image DATE: 05/19/2022 13:03 INDICATION: Ascites. TECHNIQUE: The procedure and its risks, benefits, and alternatives were discussed with the patient. P otential risks discussed included bleeding and infection. The skin was prepped and draped in sterile fashion. 1% lidocaine was used for local anesthesia. Under ultrasound guidance, a 5 Fr catheter with trochar was advanced into the ascites in the left lower quadrant. Fluid was aspirated. The catheter w as removed, and a dressing was applied. There were no immediate complications. FINDINGS: Ultrasound images demonstrate ascites and the catheter within the fluid. IMPRESSION: 1. Successful ultrasound-guided paracentesis yielding 5000 mL of yellow fluid. Reviewed, dictated and finalized at location A.
--- NOTE | ~2022-05-13 | MR_ITS ---
EXAMINATION: MR brain/brain stem wo con DATE: 05/15/2022 11:12 INDICATION: Altered mental status. Balance abnormality. TECHNIQUE: Magnetic resonance imaging (MRI) of the brain and brainstem was performed without intraven ous contrast. COMPARISON: Head CT 10/31/2020 FINDINGS: There is a small old infarct in right cerebellum. There are scattered areas of nonspecific increased T2-weighted signal intensity in the cerebral white matter, which is within normal limits fo r the patient's age. There is no intracranial hemorrhage or acute infarction. The ventricles are norm al in size. The paranasal sinuses are clear. There are likely changes of ocular lens replacement surg eries. There is a trace left mastoid effusion. There is a 5 mm low signal mass in the suprasellar cis tern. IMPRESSION: 1. 5 mm mass in the suprasellar cistern, most likely a saccular aneurysm of anterior communicating ar mita. Head CTA is recommended. 2. Small old infarct in right cerebellum. Reviewed, dictated and finalized at location E. IMPRESSION: 1. 5 mm mass in the suprasellar cistern, most likely a saccular aneurysm of ant erior communicating artery. Head CTA is recommended. 2. Small old infarct in right cerebellum.
--- NOTE | 2022-05-13 15:44 | ECG_ITS ---
Measurements Intervals [place] Rate: 59 P: 24 VA: 154 QRS: -45 QRSD: 86 T: 58 QT: 457 QTc: 453 Interpretive Statements SINUS BRADYCARDIA LOW QRS VOLTAGE- DIFFUSE LEADS LEFT ANTERIOR FASCICULAR BLOCK CANNOT RULE OUT SEPTAL INFARCT, AGE INDETERMINATE BASELINE WANDER- V4 ABNORMAL ECG COMPARED TO ECG 10/31/2020 10:18:58 SINUS BRADYCARDIA NOW PRESENT LEFT ANTERIOR FASCICULAR BLOCK NOW PRESENT Electronically Signed On 05-13-2022 15:57:57 CDT by Steven Nguyen D.O.
[2022-05-13 15:59] LABS: Glucose Point of Care 86 mg/dl (65-105)
[2022-05-13 16:27] LABS: Appearance Urine Clear (Clear); Bilirubin Urine 2+ (Negative); Blood Urine Negative (Negative); Color Urine Dark Yellow (Yellow); Glucose Urine UA Negative (Negative); Ketones Urine Trace mg/dL (Negative); Leukocyte Esterase Ur Negative LEU/UL (Negative); Nitrate Urine Negative (Negative); Protein Urine Negative (Negative); Specific Grav Ur 1.018 (1.001-1.035); pH Urine 5.5 (5.0-9.0)
[2022-05-13 16:35] LABS: Add Urine Microscopic? NO
--- NOTE | 2022-05-13 16:49 | ED.WEAKNESS ---
HPI - Weakness General Chief complaint: Weakness Stated complaint: WEAKNESS, ABD PAIN. JAUNDICE Time Seen by Provider: 05/13/22 15:40 History of Present Illness HPI Narrative: 62-year-old female with a history of cirrhosis, alcohol use disorder, esophageal varices, recurrent ascites presenting with weakness and abdominal distention. Patient is somewhat confused but she states that her abdomen has been progressively swelling over the last several weeks. Unlike her family has also been concern for worsening jaundice and confusion. Currently, the patient denies complaints. No chest pain or shortness of breath, fevers, headache, numbness or weakness, dysuria. Related Data Home Medications Medication Instructions Recorded Confirmed pantoprazole 40 mg tablet,delayed 40 mg PO DAILY 07/14/20 05/13/22 release cholecalciferol (vitamin D3) 50 2,000 unit PO DAILY 05/13/22 05/13/22 mcg (2,000 unit) capsule (Vitamin D3) linaclotide 145 mcg capsule 145 mcg PO DAILY PRN Constipation 05/13/22 05/13/22 (Linzess) pregabalin 50 mg capsule (Lyrica) 50 mg PO TID 05/13/22 05/13/22 Allergies Allergy/AdvReac Type Severity Reaction Status Date / Time No Known Allergies Allergy Mild Verified 05/13/22 16:49 Review of Systems Review of Systems: All systems reviewed & are unremarkable except as noted in HPI and below PMFSH Past Medical History Medical History Alcoholism Anemia Anxiety Broken hip Right Chlamydia Chronic anemia Cirrhosis of liver Colonoscopy planned 2014 COPD (chronic obstructive pulmonary disease) Depression Esophageal varices in alcoholic cirrhosis Gall stones GERD (gastroesophageal reflux disease) Hypertension Hypertension, portal Hyponatremia Insomnia Lower extremity surgery planned Right Migraine Neuropathy Normal endoscopy 2015 Pancreatic mass S/P abdominal paracentesis Several Thyroid disease Surgical History Surgical History H/O breast augmentation H/O dilation and curettage H/O endoscopy H/O tubal ligation BL Hx of colonoscopy Family History Family History Mother Patient's mother is in good health Cerebrovascular accident Family history of heart disease in male family member before age 55 Father Family history of heart disease in male family member before age 55 Sibling TIA (transient ischemic attack) Social History Social History Social History: The patient has 1 daughter. The patient is disabled. The patient is . The patient does not have a durable power deputy attorney general for healthcare. She is a full code. 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 Her sister Nolvia has been talking to the patient about becoming her power deputy attorney general. Code status full code Smoking packs per day: 1 Smoking cigarettes per day: 20.0 Years smoked: 30 Smoking pack-years: 30.00 Smoking status: Current every day smoker Tobacco type: cigarettes Second hand tobacco smoke exposure: Yes Alcohol intake: former Substance use: never Substance use type: does not use Lack of Transportation: No Lack of Food: Sometimes True Current Housing: I Have Housing Concerned About Future Housing: No Difficulty Paying Gas/Electric Bills: No Difficulty Paying for Meds: No Currently Unemployed: No Education: Bachelor's Degree Difficulty w/ Childcare or Family Care: No Living arrangements: with family Additional living arrangements comments: Mother and sister Gender identity (if verbalized by the patient): Female Sexual Orientation (if Verbalized by the Patient): Straight or Heterosexual Spiritual care concerns: No Exam Narrative: GENERAL: Chronically ill-appearing, in no acute distress HEAD: Normocephalic, atraumatic. EYES: PERRLA and EOM
[2022-05-13] MEDS: fentaNYL CITRATE INJ (*CRX) 100 MCG/2 ML VIAL 50 MCG IV PUSH (16:58)
[2022-05-13] MEDS: LACTATED RINGERS 1,000 ML 999 ML IV CONT (16:58)
[2022-05-13 17:41] LABS: Basophils Percent Auto 0.2 % (0.2-1.2); Eosinophils Percent Auto 0.2 % (0-4.4); Hematocrit 37.2 % (37.0-47.0); Hemoglobin 12.7 g/dL (12.0-15.0); Immature Granulocyte Absolute 0.03 K/mm3 (0.00-0.031); Immature Granulocyte Percent A 0.5 % (0-0.5); Lymphocytes Absolute Auto 1.07 K/mm3 (0.9-3.2); Lymphocytes Percent Auto 16.1 % (18.3-44.2); Mean Corpuscular HGB Conc 34.1 g/dl (32-36); Mean Corpuscular Hemoglobin 37.7 pg (26-34); Mean Corpuscular Volume 110.4 fl (80-100); Mean Platelet Volume 11.2 fl (7.4-10.4); Monocytes Absolute Auto 0.5 K/mm3 (0.1-0.6); Monocytes Percent Auto 7.2 % (2.6-8.5); Neutrophils Percent Auto 75.8 % (45.5-73.1); Platelet Count Result 143 k/mm3 (150-375); Red Blood Count 3.37 M/mm3 (4.2-5.4); Red Cell Distribution Width 17.6 % (11.5-14.5); White Blood Count 6.6 K/mm3 (4.5-10.0)
[2022-05-13 17:51] LABS: Lactic Acid Reflex 1.8 mmol/L (0.7-2.0)
[2022-05-13 17:53] LABS: Ethanol < 10 mg/dL (<10)
[2022-05-13 17:54] LABS: Macrocytosis 1+ (NORMAL); Platelet Estimate Adequate (Adequate)
[2022-05-13 17:57] LABS: Schistocytes None Seen (NORMAL)
[2022-05-13 17:59] LABS: Alanine Aminotransferase 26 U/L (6-35); Albumin Level 3.2 g/dL (3.5-5.1); Alkaline Phosphatase 188 U/L (38-126); Anion Gap 11 mmol/L (8-16); Aspartate Amino Transferase 73 U/L (14-36); Bilirubin,Total 2.6 mg/dL (0.2-1.3); Blood Urea Nitrogen 49 mg/dL (7-17); Carbon Dioxide 28 mmol/L (22-30); Chloride 94 mmol/L (98-107); Estimated CRCL calculation 22 ml/min; Estimated Glomerular Filt Rate 28; Glucose 95 mg/dL (65-110); Lipase 560 U/L (23-300); Potassium 2.8 mmol/L (3.4-5.0); Sodium 133 mmol/L (137-145)
[2022-05-13 18:16] LABS: Influenza A QL RT-PCR Negative (Negative); Influenza B QL RT-PCR Negative (Negative); SARS-CoV-2 RNA PCR Negative
--- NOTE | 2022-05-13 19:01 | PM.IMHP ---
H&P: HPI History of Present Illness Date/Time: 05/13/22 19:01 Chief Complaint: Weakness Narrative: This is a 62-year-old female patient who has a history of cirrhosis of the liver. The patient cannot recall when she saw her media traffic manager last. She stated that her media traffic manager is somewhere in [place]. She cannot recall her physician's name but went on to say that she has not seen him in quite a while. Potassium 2.8, sodium 133, chloride 94 BUN 49 and creatinine 1.8. GFR 28. AST is 73 and alkaline phosphatase 188. Patient's liver enzymes are chronically elevated. Albumin is low at 3.2. Lipase 560. Patient was negative for influenza A/B and COVID. Abdominal pelvis CT was read as the following?Chronic severe ascites Cirrhosis of the liver Chronic pancreatitis Increased size of encapsulated partially calcified cystic lesion at the left side of the pancreatic head Cholelithiasis Extensive patchy bilateral pulmonary infiltrate and/or atelectasis The patient reported that the pancreatic lesion is a cystic lesion and is benign. The patient is being admitted to observation status on the date of service of 05/13/2022 Review of Systems Review of Systems: All systems reviewed & are unremarkable except as noted in HPI and below Constitutional: Constitutional: Reports as per HPI and Reports no additional constitutional complaints Eyes: Eyes: Reports as per HPI and Reports no additional eye complaints ENT: Reports system reviewed and no additional complaints, except as documented and Reports Normal hearing present Cardiovascular: Cardiovascular: Reports no additional cardiovascular complaints Respiratory: Respiratory: Reports no additional respiratory complaints and Reports no additional respiratory complaints Gastrointestinal: Gastrointestinal: Reports as per HPI and Reports no additional gastrointestinal complaints Musculoskeletal: Musculoskeletal: Reports no additional musculoskeletal complaints Integumentary/Breasts: Skin/Breast: Reports system reviewed and no additional complaints, except as docu and Reports as per HPI Neurologic: Reports system reviewed and no additional complaints, except as documented, Reports as per HPI and Reports Normal hearing present Psychiatric: Psychiatric: Reports no additional psychiatric complaints and Reports as per HPI Endocrine: Endocrine: Reports no additional endocrine complaints Hematologic/Lymphatic: Hematologic/Lymphatic: Reports no additional hematologic/lymphatic complaints Allergic/Immunologic: Allergic/Immunologic: Reports no additional allergic/immunologic complaints [facility] Past Medical History Medical History Alcoholism Anemia Anxiety Broken hip Right Chlamydia Chronic anemia Cirrhosis of liver Colonoscopy planned 2015 Depression Esophageal varices in alcoholic cirrhosis Gall stones GERD (gastroesophageal reflux disease) Hypertension Hypertension, portal Hyponatremia Insomnia Lower extremity surgery planned Right Migraine Neuropathy Normal endoscopy 2014 Pancreatic mass S/P abdominal paracentesis Several Thyroid disease Surgical History Surgical History H/O breast augmentation H/O dilation and curettage H/O endoscopy H/O tubal ligation BL Hx of colonoscopy Family History Family History Mother Patient's mother is in good health Cerebrovascular accident Family history of heart disease in male family member before age 55 Father Family history of heart disease in male family member before age 55 Sibling TIA (transient ischemic attack) Social History Social History (Updated 05/13/22 @ 23:10 by Mery Angeles NP) Social History: The patient has 1 daughter. The patient is disabled. The patient is . The patient does not have a durable power business attorney for healthcare. She is a
[2022-05-13] MEDS: ALBUMIN HUMAN 25% 25 GM/100 ML 100 ML IVPB (19:07)
[2022-05-13] MEDS: POTASSIUM CHLORIDE INJ 40 MEQ in SODIUM CHLORIDE 0.9% IV 500 ML 125.18 MEQ IVPB ×2 (19:09→22:50)
[2022-05-13] MEDS: cefTRIAXone 2 GM/NS 100 ML 2 GM/100 ML BAG IVPB (20:06)
--- NOTE | 2022-05-13 21:34 | ADMGEN ---
This patient, Ace Carl, was admitted to Medical Room 347-. Patient/family oriented to hospital policies and general routines including ID bracelet, bed and alarms, visiting hours, pain management, procedures, bathroom and other care routines, personal items, smoking policy, room service/diet, and visiting hours. Information on how to activate the Rapid Response Team has been discussed. Patient/Family are encouraged to report perceived risks to care and to ask questions if they do not understand what they are told or what they should do.
[2022-05-13] MEDS: HYDROcodone/acetaminophen (*CRX) 5-325 MG TABLET 1 TAB PO (22:49)
[2022-05-13] MEDS: PREGABALIN (*CRX) 50 MG CAPSULE PO (23:39)
[2022-05-13] MEDS: PROPRANOLOL HCL 20 MG TABLET PO (23:39)
[2022-05-13] MEDS: CYCLOBENZAPRINE HCL 10 MG TABLET PO (23:39)
[2022-05-14] VITALS (10 sets, daily range): BP systolic 99–107; BP diastolic 52–80; PULSE 54–80; RESP 16–20; TEMP 36.4–36.6; O2SAT 96–99
[2022-05-14 05:50] LABS: Basophils Percent Auto 0.2 % (0.2-1.2); Hematocrit 35.6 % (37.0-47.0); Immature Granulocyte Absolute 0.02 K/mm3 (0.00-0.031); Immature Granulocyte Percent A 0.3 % (0-0.5); Immature Platelet Fraction Pct 7.4 % (0.9-11.2); Lymphocytes Absolute Auto 1.25 K/mm3 (0.9-3.2); Lymphocytes Percent Auto 19.8 % (18.3-44.2); Mean Corpuscular HGB Conc 33.7 g/dl (32-36); Mean Corpuscular Hemoglobin 37.4 pg (26-34); Mean Corpuscular Volume 110.9 fl (80-100); Monocytes Absolute Auto 0.5 K/mm3 (0.1-0.6); Monocytes Percent Auto 8.6 % (2.6-8.5); Neutrophils Absolute Auto 4.5 K/mm3 (1.3-6.7); Neutrophils Percent Auto 71.1 % (45.5-73.1); Platelet Count Result 155 k/mm3 (150-375); Red Blood Count 3.21 M/mm3 (4.2-5.4); Red Cell Distribution Width 17.6 % (11.5-14.5); White Blood Count 6.3 K/mm3 (4.5-10.0)
[2022-05-14 05:51] LABS: Alanine Aminotransferase 22 U/L (6-35); Alkaline Phosphatase 149 U/L (38-126); Ammonia < 9 umol/L (9-30); Anion Gap 7 mmol/L (8-16); Aspartate Amino Transferase 58 U/L (14-36); Bilirubin,Total 1.8 mg/dL (0.2-1.3); Blood Urea Nitrogen 45 mg/dL (7-17); Calcium 7.8 mg/dL (8.4-10.2); Carbon Dioxide 26 mmol/L (22-30); Chloride 101 mmol/L (98-107); Estimated CRCL calculation 31 ml/min; Estimated Glomerular Filt Rate 41; Glucose 79 mg/dL (65-110); Lactic Acid Reflex 1.3 mmol/L (0.7-2.0); Magnesium 1.6 mg/dL (1.6-2.3); Phosphorus 3.5 mg/dL (2.5-4.5); Potassium 3.8 mmol/L (3.4-5.0); Sodium 134 mmol/L (137-145)
[2022-05-14 07:20] LABS: Platelet Estimate Adequate (Adequate)
[2022-05-14 07:21] LABS: Anisocytosis 1+ (NORMAL); Macrocytosis 1+ (NORMAL); Schistocytes None Seen (NORMAL)
[2022-05-14] MEDS: PROPRANOLOL HCL 20 MG TABLET PO ×2 (08:22→16:46)
[2022-05-14] MEDS: FUROSEMIDE 20 MG TABLET PO ×2 (08:22→16:46)
[2022-05-14] MEDS: CHOLECALCIFEROL 1,000 UNITS TABLET 2000 UNITS PO (08:22)
[2022-05-14] MEDS: PANTOPRAZOLE 40 MG TABLET PO (08:22)
[2022-05-14] MEDS: CYCLOBENZAPRINE HCL 10 MG TABLET PO ×2 (08:25→16:46)
[2022-05-14] MEDS: cefTRIAXone 2 GM/NS 100 ML 2 GM/100 ML BAG IVPB (08:25)
[2022-05-14] MEDS: PREGABALIN (*CRX) 50 MG CAPSULE PO ×3 (08:25→16:46)
[2022-05-14 08:49] LABS: INR 1.1; Prothrombin Time 13.6 Seconds (11.1-14.7)
[2022-05-14 08:50] LABS: Partial Thromboplastin Time 30.7 SECONDS (22.3-36.8)
--- NOTE | 2022-05-14 12:37 | PM.IMPN ---
Progress Note: A&P Assessment and Plan (1) Alcoholic cirrhosis of liver with ascites: Code(s): K70.31 - Alcoholic cirrhosis of liver with ascites Status: Acute Assessment and Plan: Appreciate GI consultation, status post paracentesis status post 5 L removed, cytology pending, however patient was given Rocephin in the ER and this will affect the accuracy of cytology Started patient on Lasix, Aldactone, lactulose, rifaximin, attempt to get records from previous cyber forensic specialist Ammonia level less than 9 (2) Abdominal ascites: Qualifiers: Ascites type: due to alcoholic cirrhosis Qualified Code(s): K70.31 - Alcoholic cirrhosis of liver with ascites Code(s): R18.8 - Other ascites Status: Acute Assessment and Plan: Discontinue Rocephin, no signs of SBP, see above (3) Tobacco abuse: Code(s): Z72.0 - Tobacco use Status: Acute Assessment and Plan: Nicotine patch ordered (4) Esophageal varices in alcoholic cirrhosis: Code(s): K70.30 - Alcoholic cirrhosis of liver without ascites; I85.10 - Secondary esophageal varices without bleeding Status: Acute Assessment and Plan: Continue propanolol, goal heart rate less than 60 Continue PPI (5) Chronic anemia: Code(s): D64.9 - Anemia, unspecified Status: Acute Assessment and Plan: Stable, monitor (6) Pancreatic mass: Code(s): K86.89 - Other specified diseases of pancreas Status: Acute Assessment and Plan: Increased size of encapsulated partially calcified cystic lesion at the left side of the pancreatic head Suspect history of chronic pancreatitis with development of cyst, Creon with meals (7) Hypokalemia: Code(s): E87.6 - Hypokalemia Status: Acute Assessment and Plan: Added Aldactone, hopefully this will alleviate it, monitor (8) Encephalopathy: Code(s): G93.40 - Encephalopathy, unspecified Status: Acute Assessment and Plan: Concern for Wernicke-Korsakoff, high-dose thiamine initiated MRI brain pending, neuro consult pending Monitor BRADLY, neurochecks Plan DVT prophylaxis with SCDs GI prophylaxis with PPI Code status full code Subjective Date/time seen: 05/14/22 12:37 Interval history: 62-year-old female with history of alcoholic cirrhosis, chronic pancreatitis with cyst development, h/o needing recurrent paracentesis, questionable gastric varices and history of hyperammonemia presenting with acute encephalopathy. No overnight events noted. No chest pain or shortness of breath. No nausea, vomiting or diarrhea. No fevers or chills. She is a little confused, sister at bedside states the patient's words are slower and more slurred than usual, although she has been this way for awhile. Short term memory has been getting progressively worse over the last 6 months as well. Patient continues to drink and states her last drink was shortly before she came in here, however, she states she has been drinking significantly less than usual. Sister has noted frequent falls over the last few months, getting progressively worse. Patient agrees her balance has been off more lately. She has been seen by multiple GI doctors and specialists, but none consistently and states she is not compliant with her medications. Review of Systems Review of Systems: 12 point review of systems was assessed and was negative except as noted in the HPI Exam Narrative: General: No acute distress, alert and oriented per baseline HEENT: Atraumatic, normocephalic, mucous membranes moist CV: Regular rate and rhythm, S1, S2 Lungs: Clear to auscultation bilaterally, no rales or crackles noted, no wheezes, good air entry Abdomen: Soft, nontender, mildly distended Extremities: Normal to inspection Skin: No rashes noted, no lesions or wounds seen Psych: Euthymic, normal affect Neuro/Psych: Slurred speech noted with slowed
[2022-05-14 13:39] LABS: Appearance Peritoneal Fluid Clear (Clear); Color Peritoneal Fluid Yellow (Colorless); Lymphocytes Peritoneal Fluid 80 %; Neutrophils Peritoneal Fluid 7 % (0-25); Nucleated Cells Peritoneal Flu 37 /uL (0-500); RBC Peritoneal Fluid < 2000 /uL (0-100000); Source Peritoneal Fluid Peritoneal Fluid
[2022-05-14 13:40] LABS: Mesothelial Cells Peritoneal Fluid 2 %
[2022-05-14 13:42] LABS: Monocytes Peritoneal Fluid 11 %
--- NOTE | 2022-05-14 15:22 | WPDGICN ---
Assessment and Plan Assessment and plan (1) Cirrhosis of liver: Qualifiers: Ascites presence: with ascites Hepatic cirrhosis type: alcoholic cirrhosis Qualified Code(s): K70.31 - Alcoholic cirrhosis of liver with ascites Code(s): K74.60 - Unspecified cirrhosis of liver Status: Acute Assessment and Plan: Patient has alcohol-induced cirrhosis of the liver. It appears though she likely has continued to drink alcohol. Appears complicated by history of esophageal varices and ascites. Patient currently followed by Dr. Mercer in [place]. She also has been seen at [facility] in [facility]. Anticipate follow-up with her established spanish lecturer after discharge. Patient appears somewhat confused today. I suspect this is hepatic encephalopathy. Alcoholic dementia cannot be excluded. Recommend restarting lactulose 30cc p.o. b.i.d.. Add Xifaxan. Continue to monitor if this confusion persists. Her ammonia level is noted to be normal at present. (2) Esophageal varices in alcoholic cirrhosis: Code(s): K70.30 - Alcoholic cirrhosis of liver without ascites; I85.10 - Secondary esophageal varices without bleeding Status: Acute Assessment and Plan: Patient gives a history of esophageal varices. Long-term brambila follow-up on an annual basis is encouraged. Inderal 20 mg p.o. b.i.d. is suggested as a nonselective beta blockers prophylaxis for GI bleeding. This likely would best be followed up in arranged at her established GI office. (3) Abdominal ascites: Qualifiers: Ascites type: due to alcoholic cirrhosis Qualified Code(s): K70.31 - Alcoholic cirrhosis of liver with ascites Code(s): R18.8 - Other ascites Status: Acute Assessment and Plan: Patient found to have increasing abdominal status tension at the time of admission. She has already had a paracentesis. Plan to reapply mint diuresis. It is uncertain what dose of Lasix and Aldactone she has been on. Would advise starting with Aldactone 20 mg p.o. b.i.d. and Lasix 20-40 mg p.o. daily and adjust accordingly. Patient should remain on a low-salt diet with daily weights this should continue after discharge. (4) Pancreatic mass: Code(s): K86.89 - Other specified diseases of pancreas Status: Acute Assessment and Plan: Pancreatic cyst stool lesion is been identified. This is followed elsewhere. She has endoscopic ultrasound in the past. Suggest follow-up with her spanish lecturer Dr. Woody Mercer for long-term follow-up with endoscopic ultrasound not available at our institution. Old reports suggest she has chronic pancreatitis. Patient reports she is on chronic enzyme replacement with Zenpep. (5) Alcoholism: Code(s): F10.20 - Alcohol dependence, uncomplicated Status: Acute Assessment and Plan: Alcohol avoidance strongly encouraged. GI Consult Note Consult date/time: 05/14/22 15:22 Reason for consult: Alcoholic cirrhosis of the liver with ascites. HPI: Ace Carl is a 62 year old female I am asked to see because of cirrhosis and ascites. this patient has a history of decompensated alcoholic cirrhosis with ascites apparently this was diagnosed 7 or 8 years ago. Patient has had multiple abdominal paracenteses in the past. Has been followed both in [facility] and [facility]. Apparently she has had esophageal varices that were banded in the past. 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 Although none of these old records are immediately available for review. She apparently continues to drink alcohol. Currently lives variously with her sister and her boyfriend. Apparently had not taken any medications for 5 days prior to presentation. She was brought to the hospital because of increasing abdominal distention. This has been noted over the last 6 weeks but finally
[2022-05-14] MEDS: LACTULOSE 20 GM/30 ML UDC PO (17:08)
[2022-05-14] MEDS: NICOTINE (*PBKC) 21 MG PATCH 1 PATCH TRANSDERM (18:57)
[2022-05-14] MEDS: rifAXIMin 550 MG TABLET PO (20:53)
[2022-05-15] VITALS (10 sets, daily range): BP systolic 99–115; BP diastolic 52–69; PULSE 66–86; RESP 16–20; TEMP 36.4–36.6; O2SAT 93–100
[2022-05-15] MEDS: LIPASE/AMYLASE/PROTEASE 12,000 UNITS CAP 1 CAP PO ×3 (09:50→16:24)
[2022-05-15] MEDS: CHOLECALCIFEROL 1,000 UNITS TABLET 2000 UNITS PO (09:50)
[2022-05-15] MEDS: NICOTINE (*PBKC) 21 MG PATCH 1 PATCH TRANSDERM (09:51)
[2022-05-15] MEDS: FUROSEMIDE 40 MG TABLET PO (09:51)
[2022-05-15] MEDS: LACTULOSE 20 GM/30 ML UDC PO ×2 (09:51→16:23)
[2022-05-15] MEDS: PROPRANOLOL HCL 20 MG TABLET PO ×2 (09:51→16:26)
[2022-05-15] MEDS: rifAXIMin 550 MG TABLET PO ×2 (09:54→20:14)
[2022-05-15] MEDS: PANTOPRAZOLE 40 MG TABLET PO (09:55)
--- NOTE | 2022-05-15 10:29 | WPDGIPROGNO ---
Progress Note: A&P Assessment and Plan (1) Alcoholism: Code(s): F10.20 - Alcohol dependence, uncomplicated Status: Acute Assessment and Plan: Patient will need strict alcohol avoidance. This undoubtedly is the cause of her cirrhosis. It appears as though she continues to drink intermittently. (2) Cirrhosis of liver: Qualifiers: Ascites presence: with ascites Hepatic cirrhosis type: alcoholic cirrhosis Qualified Code(s): K70.31 - Alcoholic cirrhosis of liver with ascites Code(s): K74.60 - Unspecified cirrhosis of liver Status: Acute Assessment and Plan: Alcoholic cirrhosis of the liver identified with ascites. Plan to continue supportive care. Diuretics as allowed by her blood pressure and electrolytes. Low-salt diet advised. (3) Abdominal ascites: Qualifiers: Ascites type: due to alcoholic cirrhosis Qualified Code(s): K70.31 - Alcoholic cirrhosis of liver with ascites Code(s): R18.8 - Other ascites Status: Acute Assessment and Plan: Continue low-salt diet. Will advance Aldactone dose. Add Lasix when her blood pressure allows. Continue to monitor electrolytes. (4) Encephalopathy: Code(s): G93.40 - Encephalopathy, unspecified Status: Acute Assessment and Plan: Patient less confused today. Plan to continue lactulose and titrate to soft stools. Add Xifaxan if possible. (5) Pancreatic mass: Code(s): K86.89 - Other specified diseases of pancreas Status: Acute Assessment and Plan: Pancreatic cystic lesion currently followed either in [place] or [place]. Will need continued follow-up at facility where endoscopic ultrasound available. Subjective Date/time seen: 05/15/22 10:29 Interval history: Patient more alert today. Still complains of abdominal distention and discomfort. Tolerating diet. Review of Systems Review of Systems: Review of systems noncontributory. Exam Narrative: Physical exam reveals patient to be more alert. She appears oriented day. Vital signs somewhat soft blood pressure. Lungs reveal a few rhonchi. Heart without murmur. Abdomen mildly distended with shifting dullness. Extremities without significant edema. Objective Data Vital Signs Vital Signs: Vital Signs - 24 hr 05/14/22 12:00 05/14/22 14:00 05/14/22 16:37 Temperature 97.7 F 97.5 F L Pulse Rate 64 67 65 Respiratory Rate 20 16 Blood Pressure 99/59 L 104/64 Pulse Oximetry 99 96 Oxygen Delivery 05/14/22 16:00 05/14/22 20:36 05/14/22 20:00 Temperature 97.7 F Pulse Rate 80 67 Respiratory Rate 18 Blood Pressure 107/52 L 107/52 L Pulse Oximetry 99 Oxygen Delivery 05/14/22 20:00 05/14/22 20:00 05/15/22 00:00 Temperature Pulse Rate 67 69 Respiratory Rate 18 Blood Pressure 107/52 L Pulse Oximetry 99 Oxygen Delivery Room Air 05/15/22 00:00 05/15/22 04:00 05/15/22 04:00 Temperature Pulse Rate 73 71 Respiratory Rate Blood Pressure 115/61 Pulse Oximetry Oxygen Delivery 05/15/22 06:00 05/15/22 09:51 Temperature 97.5 F L Pulse Rate 76 86 Respiratory Rate 20 Blood Pressure 101/54 L Pulse Oximetry 93 Oxygen Delivery Intake/Output Intake/Output: Intake & Output 05/12/22 05/13/22 05/14/22 05/15/22 23:59 23:59 23:59 23:59 Intake Total 1720 240 Output Total 5400 Balance 1720 -5160 Meds/Results Medications: Active Medications Generic Name Dose Route Start Last Admin Trade Name Freq PRN Reason Stop Dose Admin Hydrocodone Bitart/Acetaminophen 1 tab 05/13/22 20:28 05/13/22 22:49 Hydrocodone/Acetaminophen (*Crx) 5-325 Mg Tablet PO 1 tab Q8H PRN Administration Pain Lipase/Protease/Amylase 1 cap 05/15/22 08:00 05/15/22 09:50 Lipase/Amylase/Protease 12,000 Units Cap PO 1 cap TIDWM REY Administration Furosemide 40 mg 05/15/22 09:00 05/15/22 09:51 Furosemide
--- NOTE | 2022-05-15 11:39 | PM.IMPN ---
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 Ammonia level less than 9 Cont low sodium diet for now, watch sodium closely as she is already hyponatremic (2) Encephalopathy: Code(s): G93.40 - Encephalopathy, unspecified Status: Acute Assessment and Plan: Concern for Wernicke-Korsakoff, high-dose thiamine initiated MRI brain pending, neuro consult pending Monitor BRADLY, neurochecks Update: Clinically improving, MRI did show mass versus aneurysm, CTA ordered and pending (3) Abdominal ascites: Qualifiers: Ascites type: due to alcoholic cirrhosis Qualified Code(s): K70.31 - Alcoholic cirrhosis of liver with ascites Code(s): R18.8 - Other ascites Status: Acute Assessment and Plan: Discontinue Rocephin, no signs of SBP, see above (4) Tobacco abuse: Code(s): Z72.0 - Tobacco use Status: Acute Assessment and Plan: Nicotine patch ordered (5) Esophageal varices in alcoholic cirrhosis: Code(s): K70.30 - Alcoholic cirrhosis of liver without ascites; I85.10 - Secondary esophageal varices without bleeding Status: Acute Assessment and Plan: Continue propanolol, goal heart rate less than 60 d/t reported varices, need EGD report Continue PPI (6) Chronic anemia: Code(s): D64.9 - Anemia, unspecified Status: Acute Assessment and Plan: Stable, monitor (7) Pancreatic mass: Code(s): K86.89 - Other specified diseases of pancreas Status: Acute Assessment and Plan: Increased size of encapsulated partially calcified cystic lesion at the left side of the pancreatic head Suspect history of chronic pancreatitis with development of cyst, Creon with meals (8) Hypokalemia: Code(s): E87.6 - Hypokalemia Status: Acute Assessment and Plan: Added Aldactone, resolved (9) KARLY (acute kidney injury): Code(s): N17.9 - Acute kidney failure, unspecified Status: Acute Assessment and Plan: improving with oral diuresis, monitor, unsure of baseline Check bladder scan/PVR, patient exhibiting incomplete sense of emptying when urinating Plan DVT prophylaxis with SCDs GI prophylaxis with PPI Code status full code Subjective Date/time seen: 05/15/22 11:39 Interval history: 62-year-old female with history of alcoholic cirrhosis, chronic pancreatitis with cyst development, h/o needing recurrent paracentesis, questionable gastric varices and history of hyperammonemia presenting with acute encephalopathy. 05/14: No overnight events noted. No chest pain or shortness of breath. No nausea, vomiting or diarrhea. No fevers or chills. She is a little confused, sister at bedside states the patient's words are slower and more slurred than usual, although she has been this way for awhile. Short term memory has been getting progressively worse over the last 6 months as well. Patient continues to drink and states her last drink was shortly before she came in here, however, she states she has been drinking significantly less than usual. Sister has noted frequent falls over the last few months, getting progressively worse. Patient agrees her balance has been off more lately. She has been seen by multiple GI doctors and specialists, but none consistently and states she is not compliant with her medications. 05/15: Sister at bedside, states patient seems much better today. Patient states she feels more alert and awake today.
[2022-05-15] MEDS: THIAMINE 500 MG/NS 100 ML 500 MG/100 ML BAG 200 MG IVPB ×3 (12:33→16:28)
[2022-05-15] MEDS: PREGABALIN (*CRX) 50 MG CAPSULE PO ×2 (12:33→16:25)
--- NOTE | 2022-05-15 13:47 | WPDNEURCNPN ---
Assessment and Plan Assessment and plan (1) Encephalopathy: Code(s): G93.40 - Encephalopathy, unspecified Status: Acute Plan 1 cirrhosis of the liver with chronic pancreatitis documented by the abdominal and pelvic CT scan and additional documentation of 2 extensive patchy bilateral pulmonary infiltration 3 ascites for which management has been started neurologically intact will follow. Consult date: 05/15/22 HPI: Ace Carl is a 62 year old femaleAdmitted to the hospital through the emergency room for the complaints of weakness in addition to abdominal pain and jaundice, patient has been taking propranolol 20 mg b.i.d., furosemide 20 mg b.i.d. and apixaban 5 mg b.i.d. with known drug allergies and history of multiple medical problem particularly involving the cirrhosis of the liver alcohol related esophageal viruses and history of abdominal paracentesis with ease smoked 30 his smoking cigarettes per day 20 and currently everyday smoker and former alcohol intake initial evaluation in the emergency room revealed fairly normal vital signs urine negative except 2+ bilirubin with additional information of esophageal varices Review of Systems Review of Systems: All systems reviewed & are unremarkable except as noted in HPI and below PMFSH Past Medical History Medical History Alcoholism Anemia Anxiety Broken hip Right Chlamydia Chronic anemia Cirrhosis of liver Colonoscopy planned 2014 Depression Esophageal varices in alcoholic cirrhosis Gall stones GERD (gastroesophageal reflux disease) Hypertension Hypertension, portal Hyponatremia Insomnia Lower extremity surgery planned Right Migraine Neuropathy Normal endoscopy 2015 Pancreatic mass S/P abdominal paracentesis Several Thyroid disease Surgical History Surgical History H/O breast augmentation H/O dilation and curettage H/O endoscopy H/O tubal ligation BL Hx of colonoscopy Family History Family History Mother Patient's mother is in good health Cerebrovascular accident Family history of heart disease in male family member before age 55 Father Family history of heart disease in male family member before age 55 Sibling TIA (transient ischemic attack) Social History Social History (Updated 05/13/22 @ 23:10 by Mery Angeles NP) Social History: The patient has 1 daughter. The patient is disabled. The patient is . The patient does not have a durable power ip attorney for healthcare. She is a full code. 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 Her sister Nolvia has been talking to the patient about becoming her power ip attorney. Code status full code Smoking packs per day: 1 Smoking cigarettes per day: 20.0 Years smoked: 30 Smoking pack-years: 30.00 Smoking status: Current every day smoker Tobacco type: cigarettes Second hand tobacco smoke exposure: Yes Alcohol intake: former Substance use: never Substance use type: does not use Lack of Transportation: No Lack of Food: Sometimes True Current Housing: I Have Housing Concerned About Future Housing: No Difficulty Paying Gas/Electric Bills: No Difficulty Paying for Meds: No Currently Unemployed: No Education: Bachelor's Degree Difficulty w/ Childcare or Family Care: No Living arrangements: with family Additional living arrangements comments: Mother and sister Gender identity (if verbalized by the patient): Female Sexual Orientation (if Verbalized by the Patient): Straight or Heterosexual Spiritual care concerns: No Meds Home Medications and Allergies Home Medications Medication Instructions Recorded Confirmed Type pantoprazole 40 mg tablet,delayed 40 mg PO DAILY 07/14/20 05/13/22 History release propranolol 20 mg tablet 20 mg PO BID 07/14/20 05/13/22 History
[2022-05-15] MEDS: HYDROcodone/acetaminophen (*CRX) 5-325 MG TABLET 1 TAB PO (14:11)
[2022-05-15] MEDS: SPIRONOLACTONE 25 MG TABLET PO (16:28)
[2022-05-16] VITALS (13 sets, daily range): BP systolic 79–110; BP diastolic 52–77; PULSE 73–85; RESP 16–18; TEMP 36.4–36.6; O2SAT 90–96
[2022-05-16] MEDS: HYDROcodone/acetaminophen (*CRX) 5-325 MG TABLET 1 TAB PO (06:17)
--- NOTE | 2022-05-16 08:55 | PCOTNOTE ---
Attempted OT evaluation. Despite education on benefits of participating with therapy, patient reports I am to sick, not right now . RN notified, will follow.
[2022-05-16] MEDS: LACTULOSE 20 GM/30 ML UDC PO (09:14)
[2022-05-16] MEDS: NICOTINE (*PBKC) 21 MG PATCH 1 PATCH TRANSDERM (09:14)
[2022-05-16] MEDS: FUROSEMIDE 40 MG TABLET PO (09:15)
[2022-05-16] MEDS: CHOLECALCIFEROL 1,000 UNITS TABLET 2000 UNITS PO (09:16)
[2022-05-16] MEDS: rifAXIMin 550 MG TABLET PO ×2 (09:16→20:34)
[2022-05-16] MEDS: SPIRONOLACTONE 25 MG TABLET PO (09:16)
[2022-05-16] MEDS: PROPRANOLOL HCL 20 MG TABLET PO (09:16)
[2022-05-16] MEDS: LIPASE/AMYLASE/PROTEASE 12,000 UNITS CAP 1 CAP PO ×3 (09:16→18:13)
[2022-05-16] MEDS: PANTOPRAZOLE 40 MG TABLET PO (09:16)
[2022-05-16] MEDS: PREGABALIN (*CRX) 50 MG CAPSULE PO ×2 (09:17→13:20)
[2022-05-16] MEDS: THIAMINE 500 MG/NS 100 ML 500 MG/100 ML BAG 200 MG IVPB ×3 (09:18→17:08)
[2022-05-16] MEDS: ONDANSETRON INJ 4 MG/2 ML VIAL IV PUSH (12:15)
--- NOTE | 2022-05-16 12:53 | PM.IMPN ---
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 order entry clerk Ammonia level less than 9 Cont low sodium diet for now, watch sodium closely as she is already hyponatremic (2) Encephalopathy: Code(s): G93.40 - Encephalopathy, unspecified Status: Acute Assessment and Plan: Concern for Wernicke-Korsakoff, high-dose thiamine initiated MRI brain pending, neuro consult noted Monitor CIWA, neurochecks Clinically improving, MRI did show mass versus aneurysm, CTA ordered and pending (3) Abdominal ascites: Qualifiers: Ascites type: due to alcoholic cirrhosis Qualified Code(s): K70.31 - Alcoholic cirrhosis of liver with ascites Code(s): R18.8 - Other ascites Status: Acute Assessment and Plan: Discontinue Rocephin, no signs of SBP, see above (4) Tobacco abuse: Code(s): Z72.0 - Tobacco use Status: Acute Assessment and Plan: Nicotine patch ordered (5) Esophageal varices in alcoholic cirrhosis: Code(s): K70.30 - Alcoholic cirrhosis of liver without ascites; I85.10 - Secondary esophageal varices without bleeding Status: Acute Assessment and Plan: Continue propanolol, goal heart rate less than 60 d/t reported varices, need EGD report Continue PPI (6) Chronic anemia: Code(s): D64.9 - Anemia, unspecified Status: Acute Assessment and Plan: Stable, monitor (7) Pancreatic mass: Code(s): K86.89 - Other specified diseases of pancreas Status: Acute Assessment and Plan: Increased size of encapsulated partially calcified cystic lesion at the left side of the pancreatic head Suspect history of chronic pancreatitis with development of cyst, Creon with meals (8) Hypokalemia: Code(s): E87.6 - Hypokalemia Status: Acute Assessment and Plan: Added Aldactone, resolved (9) KARLY (acute kidney injury): Code(s): N17.9 - Acute kidney failure, unspecified Status: Acute Assessment and Plan: Improving with oral diuresis, monitor, unsure of baseline Check bladder scan/PVR, patient exhibiting incomplete sense of emptying when urinating Plan DVT prophylaxis with SCDs GI prophylaxis with PPI Code status full code Subjective Date/time seen: 05/16/22 12:53 Interval history: 62-year-old female with history of alcoholic cirrhosis, chronic pancreatitis with cyst development, h/o needing recurrent paracentesis, questionable gastric varices and history of hyperammonemia presenting with acute encephalopathy. 05/14: No overnight events noted. No chest pain or shortness of breath. No nausea, vomiting or diarrhea. No fevers or chills. She is a little confused, sister at bedside states the patient's words are slower and more slurred than usual, although she has been this way for awhile. Short term memory has been getting progressively worse over the last 6 months as well. Patient continues to drink and states her last drink was shortly before she came in here, however, she states she has been drinking significantly less than usual. Sister has noted frequent falls over the last few months, getting progressively worse. Patient agrees her balance has been off more lately. She has been seen by multiple GI doctors and specialists, but none consistently and states she is not compliant with her medications. 05/15: Sister at bedside, states patient seems much better today. Patient states she feels more alert and awake today. She feels l
--- NOTE | 2022-05-16 14:44 | PC.NURSE ---
Notified Dr Conway of patients blood pressure of 83/50. Doctor wanted to hold 1700 meds and to monitor and recheck BP.
[2022-05-17] VITALS (12 sets, daily range): BP systolic 94–138; BP diastolic 49–74; PULSE 74–91; RESP 16–20; TEMP 35.7–36.8; O2SAT 90–93
--- NOTE | 2022-05-17 08:10 | PCOTNOTE ---
Spoke with hospitalist Dr. Conway who reports even with new test results patient is still ok to work with therapy at this time.
[2022-05-17] MEDS: FUROSEMIDE 40 MG TABLET PO (08:46)
[2022-05-17] MEDS: CHOLECALCIFEROL 1,000 UNITS TABLET 2000 UNITS PO (08:46)
[2022-05-17] MEDS: LIPASE/AMYLASE/PROTEASE 12,000 UNITS CAP 1 CAP PO ×2 (08:46→17:57)
[2022-05-17] MEDS: NICOTINE (*PBKC) 21 MG PATCH 1 PATCH TRANSDERM (08:47)
[2022-05-17] MEDS: LACTULOSE 20 GM/30 ML UDC PO ×2 (08:47→18:00)
[2022-05-17] MEDS: PREGABALIN (*CRX) 50 MG CAPSULE PO ×2 (08:47→17:56)
[2022-05-17] MEDS: PROPRANOLOL HCL 20 MG TABLET PO ×2 (08:47→17:58)
[2022-05-17] MEDS: PANTOPRAZOLE 40 MG TABLET PO (08:47)
[2022-05-17] MEDS: rifAXIMin 550 MG TABLET PO ×2 (08:48→20:43)
[2022-05-17] MEDS: SPIRONOLACTONE 25 MG TABLET PO ×2 (08:48→17:58)
[2022-05-17] MEDS: THIAMINE 500 MG/NS 100 ML 500 MG/100 ML BAG 200 MG IVPB ×2 (08:49→13:03)
--- NOTE | 2022-05-17 10:03 | PM.IMPN ---
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 Ammonia level less than 9 Cont low sodium diet for now, watch sodium closely as she is already hyponatremic (2) Encephalopathy: Code(s): G93.40 - Encephalopathy, unspecified Status: Acute Assessment and Plan: Concern for Wernicke-Korsakoff, high-dose thiamine initiated Monitor CIWA, neurochecks Clinically improving, MRI did show mass versus aneurysm, 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, 2 aneurysms, 5 and 7 mm, no urgent intervention needed (3) Tobacco abuse: Code(s): Z72.0 - Tobacco use Status: Acute Assessment and Plan: Nicotine patch ordered (4) Esophageal varices in alcoholic cirrhosis: Code(s): K70.30 - Alcoholic cirrhosis of liver without ascites; I85.10 - Secondary esophageal varices without bleeding Status: Acute Assessment and Plan: Continue propanolol, goal heart rate less than 60 d/t reported varices, need EGD report Continue PPI (5) Chronic anemia: Code(s): D64.9 - Anemia, unspecified Status: Acute Assessment and Plan: Stable, monitor (6) Pancreatic mass: Code(s): K86.89 - Other specified diseases of pancreas Status: Acute Assessment and Plan: Increased size of encapsulated partially calcified cystic lesion at the left side of the pancreatic head Suspect history of chronic pancreatitis with development of cyst, Creon with meals (7) Hypokalemia: Code(s): E87.6 - Hypokalemia Status: Acute Assessment and Plan: Added Aldactone, resolved (8) KARLY (acute kidney injury): Code(s): N17.9 - Acute kidney failure, unspecified Status: Acute Assessment and Plan: Improving with oral diuresis, monitor, unsure of baseline Check bladder scan/PVR, patient exhibiting incomplete sense of emptying when urinating (9) Compression fracture: Status: Acute Assessment and Plan: C7-T1 noted on CTA, asymptomatic, monitor, manage outpatient Check vitamin d level (10) COPD (chronic obstructive pulmonary disease): Code(s): J44.9 - Chronic obstructive pulmonary disease, unspecified Status: Acute Assessment and Plan: Stable Plan DVT prophylaxis with SCDs GI prophylaxis with PPI Code status full code Subjective Date/time seen: 05/17/22 10:03 Interval history: 62-year-old female with history of alcoholic cirrhosis, chronic pancreatitis with cyst development, h/o needing recurrent paracentesis, questionable gastric varices and history of hyperammonemia presenting with acute encephalopathy. 05/14: No overnight events noted. No chest pain or shortness of breath. No nausea, vomiting or diarrhea. No fevers or chills. She is a little confused, sister at bedside states the patient's words are slower and more slurred than usual, although she has been this way for awhile. Short term memory has been getting progressively worse over the last 6 months as well. Patient continues to drink and states her last drink was shortly before she came in here, however, she states she has been drinking significantly less than usual. Sister has noted frequent falls over the last few months, getting progressively worse. Patient agrees her balance has been off more lately. She has been seen by multiple GI doctors and specialists, but none consistently and states she is not compliant with her medications. 05/15: Sister at bedside, states patient seems much kenan
--- NOTE | 2022-05-17 12:49 | WPDGIPROGNO ---
Progress Note: A&P Assessment and Plan (1) Cirrhosis of liver: Qualifiers: Ascites presence: with ascites Hepatic cirrhosis type: alcoholic cirrhosis Qualified Code(s): K70.31 - Alcoholic cirrhosis of liver with ascites Code(s): K74.60 - Unspecified cirrhosis of liver Status: Acute Assessment and Plan: Patient with alcoholic cirrhosis of liver. Followed in [place] and [place] with established television parts tester. Plan to continue supportive care. Patient known to have esophageal varices in the past. Suggest annual EGD and banding. Likely this would be preferable to follow-up with her established GI service. At present will continue Inderal 20mg p.o. b.i.d.. As nonselective beta-annika prophylaxis for variceal bleeding. (2) Ascites: Qualifiers: Ascites type: due to alcoholic cirrhosis Qualified Code(s): K70.31 - Alcoholic cirrhosis of liver with ascites Code(s): R18.8 - Other ascites Status: Acute Assessment and Plan: Patient with ascitic fluid evident. Would recommend low-salt diet continue. Currently on Aldactone. Will add Lasix and increase dose of diuretics if blood pressure and electrolytes allow as. If unable to tolerate diuretics she may need consideration of TIPS procedure in [place]. (3) Pancreatic mass: Code(s): K86.89 - Other specified diseases of pancreas Status: Acute Assessment and Plan: Cystic lesion in the pancreas. Followed by endoscopic ultrasound elsewhere. Previously felt to be benign. These records have not been obtained yet. (4) Encephalopathy: Code(s): G93.40 - Encephalopathy, unspecified Status: Acute Assessment and Plan: Patient is somewhat foggy. Her mental status is suspect. Ammonia level has been normal. We are continuing her on lactulose and rifaximin for possible hepatic encephalopathy. Neurology has been consulted. 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 Subjective Date/time seen: 05/17/22 12:49 Interval history: Patient is somnolent this morning. Patient's family member states she is somewhat more alert today than she had been over the weekend. Increasing abdominal girth noted. Dose of diuretics limited by hypotension. Review of Systems Review of Systems: Review of systems noncontributory. ROS unobtainable: Yes unobtainable due to mental status Exam Narrative: On physical exam patient is alert. Not as sharp as she has been in the past. HEENT exam reveals no icterus. Lungs are clear. Heart without murmur. Abdomen is somewhat distended with shifting dullness. No palpable organomegaly. Objective Data Vital Signs Vital Signs: Vital Signs - 24 hr 05/16/22 14:14 05/16/22 15:11 05/16/22 15:56 Temperature 97.5 F L Pulse Rate 78 Respiratory Rate 18 Blood Pressure 82/68 L 85/59 L 93/57 L Pulse Oximetry 96 Oxygen Delivery 05/16/22 16:00 05/16/22 16:00 05/16/22 20:00 Temperature Pulse Rate 73 78 Respiratory Rate Blood Pressure 93/57 L Pulse Oximetry Oxygen Delivery 05/16/22 22:00 05/17/22 00:00 05/17/22 04:00 Temperature 97.6 F Pulse Rate 81 82 80 Respiratory Rate 16 Blood Pressure 79/52 L Pulse Oximetry 92 Oxygen Delivery 05/17/22 06:00 05/17/22 08:12 05/17/22 08:43 Temperature 96.3 F L Pulse Rate 83 Respiratory Rate 16 Blood Pressure 108/62 94/74 L Pulse Oximetry 93 Oxygen Delivery Room Air 05/17/22 08:47 05/17/22 08:00 05/17/22 08:00 Temperature Pulse Rate 91 91 Respiratory Rate 16 Blood Pressure 94/56 L Pulse Oximetry 93 Oxygen Delivery Room Air 05/17/22 08:00 Temperature Pulse Rate 83 Respiratory Rate Blood Pressure Pulse Oximetry Oxygen Delivery Intake/Output Intake/Output: Intake & Output 05/14/22 05/15/22 05/16/22 05/17/22 23:59 23:59 23:59 23:59 Intake Total 466 100 0346 80 Output Total 5400 600 100 Balance -5160 60
[2022-05-17] MEDS: HYDROcodone/acetaminophen (*CRX) 5-325 MG TABLET 1 TAB PO (18:03)
[2022-05-17 20:07] LABS: Glucose Peritoneal Fluid 91 mg/dL; LDH Peritoneal Fluid 12 U/L (<63); Total Protein Peritoneal Fluid <3.0 g/dL
[2022-05-18] VITALS (11 sets, daily range): BP systolic 94–104; BP diastolic 63–86; PULSE 68–87; RESP 14–17; TEMP 36.7–37.2; O2SAT 96–100
--- NOTE | 2022-05-18 08:51 | PCSTNOTE ---
Please refer to the Bedside Swallow Evaluation in the EMR. Please note, silent aspiration cannot be ruled out at bedside.
--- NOTE | 2022-05-18 09:14 | PCPTNOTE ---
Attempted PT evaluation, pt refused stating
--- NOTE | 2022-05-18 09:43 | PM.IMPN ---
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 advertising strategist Ammonia level less than 9 Cont low sodium diet for now, watch sodium closely as she is already hyponatremic Worsening distention, repeat US for therapeutic paracentesis ordered per patient request 05/18 (2) Encephalopathy: Code(s): G93.40 - Encephalopathy, unspecified Status: Acute Assessment and Plan: Concern for Wernicke-Korsakoff, high-dose thiamine initiated and completed Monitor CIWA, neurochecks Clinically improving, MRI did show mass versus aneurysm, 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, 2 aneurysms, 5 and 7 mm, no urgent intervention needed Resolved, back to baseline mentation (3) Tobacco abuse: Code(s): Z72.0 - Tobacco use Status: Acute Assessment and Plan: Nicotine patch ordered (4) Esophageal varices in alcoholic cirrhosis: Code(s): K70.30 - Alcoholic cirrhosis of liver without ascites; I85.10 - Secondary esophageal varices without bleeding Status: Acute Assessment and Plan: Continue propanolol, decrease dose due to hypotension to 10 mg BID 05/18, goal heart rate less than 60 d/t reported varices, need EGD report Continue PPI Worsening, end stage, will likely need hospice with therapeutic paracentesis (5) Chronic anemia: Code(s): D64.9 - Anemia, unspecified Status: Acute Assessment and Plan: Stable, monitor (6) Pancreatic mass: Code(s): K86.89 - Other specified diseases of pancreas Status: Acute Assessment and Plan: Increased size of encapsulated partially calcified cystic lesion at the left side of the pancreatic head Suspect history of chronic pancreatitis with development of cyst, Creon with meals (7) Hypokalemia: Code(s): E87.6 - Hypokalemia Status: Acute Assessment and Plan: Aldactone dose reduced due to hypotension (8) KARLY (acute kidney injury): Code(s): N17.9 - Acute kidney failure, unspecified Status: Acute Assessment and Plan: Resolved with diuresis, cont current management per above (9) Compression fracture: Status: Acute Assessment and Plan: C7-T1 noted on CTA, asymptomatic, monitor, manage outpatient Check vitamin d level (10) COPD (chronic obstructive pulmonary disease): Code(s): J44.9 - Chronic obstructive pulmonary disease, unspecified Status: Acute Assessment and Plan: Stable Plan 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 Likely SNF with hospice care. Code status changed today to DNR. DVT prophylaxis with SCDs GI prophylaxis with PPI Code status DNR Subjective Date/time seen: 05/18/22 09:43 Interval history: 62-year-old female with history of alcoholic cirrhosis, chronic pancreatitis with cyst development, h/o needing recurrent paracentesis, questionable gastric varices and history of hyperammonemia presenting with acute encephalopathy. 05/14: No overnight events noted. No chest pain or shortness of breath. No nausea, vomiting or diarrhea. No fevers or chills. She is a little confused, sister at bedside states the patient's words are slower and more slurred than usual, although she has been this way for awhile. Short term memory has been getting progressively worse over the last 6 months as well. Patient continues to drink and states her last drink was shortly before she
[2022-05-18] MEDS: PROPRANOLOL HCL 20 MG TABLET PO (09:51)
[2022-05-18] MEDS: LIPASE/AMYLASE/PROTEASE 12,000 UNITS CAP 1 CAP PO ×2 (09:51→17:55)
[2022-05-18] MEDS: FUROSEMIDE 40 MG TABLET PO (09:51)
[2022-05-18] MEDS: LACTULOSE 20 GM/30 ML UDC PO ×2 (09:51→17:55)
[2022-05-18] MEDS: NICOTINE (*PBKC) 21 MG PATCH 1 PATCH TRANSDERM (09:51)
[2022-05-18] MEDS: CHOLECALCIFEROL 1,000 UNITS TABLET 2000 UNITS PO (09:51)
[2022-05-18] MEDS: PANTOPRAZOLE 40 MG TABLET PO (09:51)
[2022-05-18] MEDS: PREGABALIN (*CRX) 50 MG CAPSULE PO ×2 (09:52→17:57)
[2022-05-18] MEDS: rifAXIMin 550 MG TABLET PO ×2 (09:52→20:31)
[2022-05-18] MEDS: SPIRONOLACTONE 25 MG TABLET PO (09:52)
[2022-05-18] MEDS: HYDROcodone/acetaminophen (*CRX) 5-325 MG TABLET 1 TAB PO (09:57)
[2022-05-18 12:06] LABS: Albumin Peritoneal Fluid 0.3 g/dL
--- NOTE | 2022-05-18 12:43 | WPDGIPROGNO ---
Progress Note: A&P Assessment and Plan (1) Cirrhosis of liver: Qualifiers: Ascites presence: with ascites Hepatic cirrhosis type: alcoholic cirrhosis Qualified Code(s): K70.31 - Alcoholic cirrhosis of liver with ascites Code(s): K74.60 - Unspecified cirrhosis of liver Status: Acute Assessment and Plan: Patient with alcoholic cirrhosis of liver. Plan to continue supportive care. Patient should abstain completely from alcohol. Present complaints are primarily directed at her ascites accumulation. She is known to have esophageal varices. Currently on beta annika therapy which may need to be held with her low and soft blood pressures. (2) Ascites: Qualifiers: Ascites type: due to alcoholic cirrhosis Qualified Code(s): K70.31 - Alcoholic cirrhosis of liver with ascites Code(s): R18.8 - Other ascites Status: Acute Assessment and Plan: Ascites is predominant at present. Diuresis has been limited by her soft and low blood pressure. Continue to limit sodium intake. She may benefit from water restriction only if sodium falls below 130. (3) Pancreatic mass: Code(s): K86.89 - Other specified diseases of pancreas Status: Acute Assessment and Plan: Cystic pancreatic lesion identified. Patient is felt to have chronic pancreatitis. Will maintain pancreatic enzyme supplementation. Expect that she will follow up for endoscopic ultrasound follow-up at tertiary care center where she has previously been followed. (4) Alcoholism: Code(s): F10.20 - Alcohol dependence, uncomplicated Status: Acute Assessment and Plan: Alcohol abstinence strongly encouraged. Subjective Date/time seen: 05/18/22 12:43 Interval history: Patient alert today. Complains of increasing abdominal girth. Review of Systems Review of Systems: Review of systems noncontributory. Exam Narrative: For physical exam reveals patient be more alert today. Appears oriented. HEENT exam reveals no icterus. Lungs are clear. Heart without murmur. Abdomen with significant abdominal distension. Shifting dullness appreciated. No localized tenderness. No masses appreciated. Objective Data Vital Signs Vital Signs: Vital Signs - 24 hr 05/17/22 14:00 05/17/22 16:00 05/17/22 17:58 Temperature 98.2 F Pulse Rate 74 76 Respiratory Rate 20 Blood Pressure 138/67 138/67 Pulse Oximetry 90 Oxygen Delivery 05/17/22 16:00 05/17/22 21:26 05/17/22 20:00 Temperature 98.0 F Pulse Rate 79 75 80 Respiratory Rate 17 Blood Pressure 107/49 L Pulse Oximetry 90 Oxygen Delivery 05/18/22 00:00 05/18/22 04:00 05/18/22 05:54 Temperature 98.0 F Pulse Rate 69 68 69 Respiratory Rate 17 Blood Pressure 101/63 Pulse Oximetry 96 Oxygen Delivery 05/18/22 09:10 05/18/22 09:51 05/18/22 09:57 Temperature Pulse Rate 81 Respiratory Rate Blood Pressure 104/86 Pulse Oximetry Oxygen Delivery Room Air 05/18/22 09:57 05/18/22 08:00 Temperature Pulse Rate 70 Respiratory Rate Blood Pressure Pulse Oximetry Oxygen Delivery Room Air Intake/Output Intake/Output: Intake & Output 05/15/22 05/16/22 05/17/22 05/18/22 23:59 23:59 23:59 23:59 Intake Total 660 1160 380 120 Output Total 600 100 350 450 Balance 60 1060 30 -330 Meds/Results Medications: Active Medications Generic Name Dose Route Start Last Admin Trade Name Freq PRN Reason Stop Dose Admin Hydrocodone Bitart/Acetaminophen 1 tab 05/13/22 20:28 05/18/22 09:57 Hydrocodone/Acetaminophen (*Crx) 5-325 Mg Tablet PO 1 tab Q8H PRN Administration Pain Lipase/Protease/Amylase 1 cap 05/15/22 08:00 05/18/22 09:51 Lipase/Amylase/Protease 12,000 Units Cap PO 1 cap TIDWM REY Administration Furosemide 40 mg 05/15/22 09:00 05/18/22 09:51 Furosemide 40 Mg Tablet PO 40 mg DAILY REY Administration Lactulos
[2022-05-18 16:57] LABS: Basophils Percent Auto 0.1 % (0.2-1.2); Eosinophils Percent Auto 0.4 % (0-4.4); Hematocrit 38.3 % (37.0-47.0); Hemoglobin 12.6 g/dL (12.0-15.0); Immature Granulocyte Absolute 0.07 K/mm3 (0.00-0.031); Immature Granulocyte Percent A 0.6 % (0-0.5); Immature Platelet Fraction Pct 11.6 % (0.9-11.2); Lymphocytes Absolute Auto 0.91 K/mm3 (0.9-3.2); Lymphocytes Percent Auto 8.1 % (18.3-44.2); Mean Corpuscular HGB Conc 32.9 g/dl (32-36); Mean Corpuscular Hemoglobin 36.6 pg (26-34); Mean Corpuscular Volume 111.3 fl (80-100); Mean Platelet Volume 12.1 fl (7.4-10.4); Monocytes Absolute Auto 0.9 K/mm3 (0.1-0.6); Monocytes Percent Auto 8.2 % (2.6-8.5); Neutrophils Absolute Auto 9.3 K/mm3 (1.3-6.7); Neutrophils Percent Auto 82.6 % (45.5-73.1); Nucleated Red Blood Cells Perc 0.2 % (0.0-0.2); Platelet Count Result 94 k/mm3 (150-375); Red Blood Count 3.44 M/mm3 (4.2-5.4); Red Cell Distribution Width 16.9 % (11.5-14.5); White Blood Count 11.2 K/mm3 (4.5-10.0)
[2022-05-18 17:04] LABS: Alanine Aminotransferase 19 U/L (6-35); Albumin Level 2.9 g/dL (3.5-5.1); Alkaline Phosphatase 139 U/L (38-126); Anion Gap 9 mmol/L (8-16); Aspartate Amino Transferase 44 U/L (14-36); Bilirubin,Total 1.4 mg/dL (0.2-1.3); Blood Urea Nitrogen 41 mg/dL (7-17); Calcium 8.3 mg/dL (8.4-10.2); Carbon Dioxide 25 mmol/L (22-30); Chloride 95 mmol/L (98-107); Estimated CRCL calculation 20 ml/min; Estimated Glomerular Filt Rate 27; Glucose 119 mg/dL (65-110); Potassium 3.6 mmol/L (3.4-5.0); Sodium 129 mmol/L (137-145)
[2022-05-18 17:07] LABS: INR 1.2; Prothrombin Time 14.6 Seconds (11.1-14.7)
[2022-05-18 17:08] LABS: Partial Thromboplastin Time 27.7 SECONDS (22.3-36.8)
[2022-05-18 17:31] LABS: Anisocytosis 1+ (NORMAL); Macrocytosis 1+ (NORMAL); Platelet Estimate Decreased (Adequate); Schistocytes None Seen (NORMAL)
[2022-05-18] MEDS: oxyCODONE HCL (*CRX) 5 MG TAB IR PO ×2 (17:57→22:30)
[2022-05-18 23:41] LABS: Glucose Point of Care 121 mg/dl (65-105)
[2022-05-19] VITALS (7 sets, daily range): BP systolic 97–98; BP diastolic 64–67; PULSE 72–82; RESP 16–18; TEMP 36.5–36.7; O2SAT 99
[2022-05-19 05:44] LABS: Alanine Aminotransferase 17 U/L (6-35); Albumin Level 2.8 g/dL (3.5-5.1); Alkaline Phosphatase 127 U/L (38-126); Anion Gap 8 mmol/L (8-16); Aspartate Amino Transferase 44 U/L (14-36); Bilirubin,Total 1.7 mg/dL (0.2-1.3); Blood Urea Nitrogen 40 mg/dL (7-17); Calcium 8.1 mg/dL (8.4-10.2); Carbon Dioxide 23 mmol/L (22-30); Chloride 97 mmol/L (98-107); Estimated CRCL calculation 21 ml/min; Estimated Glomerular Filt Rate 28; Glucose 99 mg/dL (65-110); Potassium 3.9 mmol/L (3.4-5.0); Sodium 128 mmol/L (137-145)
[2022-05-19 06:13] LABS: Basophils Absolute Auto 0.1 K/mm3 (0.0-0.1); Basophils Percent Auto 0.5 % (0.2-1.2); Eosinophils Absolute Auto 0.1 K/mm3 (0-0.3); Eosinophils Percent Auto 0.9 % (0-4.4); Hematocrit 40.5 % (37.0-47.0); Hemoglobin 12.5 g/dL (12.0-15.0); Immature Granulocyte Absolute 0.06 K/mm3 (0.00-0.031); Immature Granulocyte Percent A 0.6 % (0-0.5); Immature Platelet Fraction Pct 10.2 % (0.9-11.2); Lymphocytes Absolute Auto 1.18 K/mm3 (0.9-3.2); Lymphocytes Percent Auto 12.6 % (18.3-44.2); Mean Corpuscular HGB Conc 30.9 g/dl (32-36); Mean Corpuscular Volume 119.8 fl (80-100); Mean Platelet Volume 12.6 fl (7.4-10.4); Monocytes Absolute Auto 1.1 K/mm3 (0.1-0.6); Monocytes Percent Auto 11.6 % (2.6-8.5); Neutrophils Absolute Auto 6.9 K/mm3 (1.3-6.7); Neutrophils Percent Auto 73.8 % (45.5-73.1); Nucleated Red Blood Cells Perc 0.2 % (0.0-0.2); Platelet Count Result 99 k/mm3 (150-375); Red Blood Count 3.38 M/mm3 (4.2-5.4); White Blood Count 9.4 K/mm3 (4.5-10.0)
[2022-05-19 06:59] LABS: Anisocytosis 1+ (NORMAL); Macrocytosis 2+ (NORMAL); Platelet Estimate Decreased (Adequate); Schistocytes None Seen (NORMAL); Tear Drop Cells 1+ (NORMAL)
--- NOTE | 2022-05-19 08:02 | WPDGIPROGNO ---
Progress Note: A&P Assessment and Plan (1) Cirrhosis of liver: Qualifiers: Ascites presence: with ascites Hepatic cirrhosis type: alcoholic cirrhosis Qualified Code(s): K70.31 - Alcoholic cirrhosis of liver with ascites Code(s): K74.60 - Unspecified cirrhosis of liver Status: Acute Assessment and Plan: Patient with alcoholic cirrhosis of the liver. At present plan was for supportive care. Patient has made arrangements to place patient in the hospice. Continued alcohol avoidance is encouraged. Apparently patient has been drinking up until admission intermittently. Known to have esophageal varices from previous workup elsewhere. Beta blockers currently on hold because low blood pressure. No evident is for bleeding present. Patient has been somewhat confused but yesterday was alert. Ammonia level normal. Plan to continue lactulose titrate to soft stools add Xifaxan. (2) Abdominal ascites: Qualifiers: Ascites type: due to alcoholic cirrhosis Qualified Code(s): K70.31 - Alcoholic cirrhosis of liver with ascites Code(s): R18.8 - Other ascites Status: Acute Assessment and Plan: Patient of appears to have recalcitrant ascites. I would recommend continuing low-salt diet. Patient had pretzels at her bedside and was encouraged not to supplement her diet with salt containing products. Patient should remain on low-salt diet. I would recommend a combination of Lasix and Aldactone. Lasix has been limited by low blood pressure as well as progressive azotemia. Try to limit paracenteses as this will withdraw a certain amount of albumin with each Pap. Patient should receive supplemental albumin during paracenteses. Indication for paracentesis the should be increasing short of breath. I would also consider TI PS shunt not available at our institution. This may need to be deferred as family has decided on hospice care. (3) Pancreatic mass: Code(s): K86.89 - Other specified diseases of pancreas Status: Acute Assessment and Plan: Patient felt to have a pancreatic cystic mass. Currently felt to be benign. Followed by endoscopic ultrasound elsewhere. This felt be a manifestation of chronic pancreatitis. Plan to continue pancreatic enzymes for for now. (4) Encephalopathy: Code(s): G93.40 - Encephalopathy, unspecified Status: Acute Assessment and Plan: Patient's mental status is fluctuated. Poorly arousable this morning but she may just be sleepy. Apparently was alert and oriented doing very well yesterday with a good appetite. Continue lactulose and Xifaxan for now. Subjective Date/time seen: 05/19/22 08:02 Interval history: Patient is somnolent this morning. Somewhat difficult to arouse. Apparently was very alert and oriented yesterday. May just be sleepy this morning. Patient family continue to complain of increasing abdominal girth. Apparently they have decided to place patient in the hospice. Review of Systems Review of Systems: ROS unobtainable: Yes unobtainable due to mental status Exam Narrative: Physical exam patient is somnolent and difficult to arouse this morning. HEENT exam unremarkable. No icterus noted. Lungs reveal a few rhonchi. Heart without murmur. Abdomen is soft. Bowel sounds are present somewhat distended with shifting dullness consistent with ascites. Objective Data Vital Signs Vital Signs: Vital Signs - 24 hr 05/18/22 09:10 05/18/22 09:51 05/18/22 09:57 Temperature Pulse Rate 81 Respiratory Rate Blood Pressure 104/86 Pulse Oximetry Oxygen Delivery Room Air 05/18/22 09:57 05/18/22 14:00 05/18/22 12:00 Temperature 98.9 F Pulse Rate 87 71 Respiratory Rate 14 Blood Pressure 94/74 L Pulse Oximetry 100 Oxygen Delivery Room Air 05/18/22 16:00 05/18/22 22:00 05/18/22 20:00 Temperature 98.1 F Pulse Rate 72 79 75 Respiratory Rate 14 Blood Pr
--- NOTE | 2022-05-19 12:15 | PC.NURSE ---
Patient off of unit for paracentesis
--- NOTE | 2022-05-19 13:20 | PC.NURSE ---
Attempted to call Dimitry regarding patients diet order. Family is bedside and requesting diet orders. No answer from hospitalist.
--- NOTE | 2022-05-19 14:31 | PC.NURSE ---
Patients family requesting a diet order again. Called hospitalist Dimitry and no answer.
--- NOTE | 2022-05-19 15:12 | PM.DS ---
DS: Admitting Diagnosis Discharge Date 05/19/22 Admitting Diagnosis Weakness DS: Discharge Diagnosis Discharge Diagnosis (1) Alcoholic cirrhosis of liver with ascites: Code(s): K70.31 - Alcoholic cirrhosis of liver with ascites Status: Acute (2) Encephalopathy: Code(s): G93.40 - Encephalopathy, unspecified Status: Acute (3) Tobacco abuse: Code(s): Z72.0 - Tobacco use Status: Acute (4) Esophageal varices in alcoholic cirrhosis: Code(s): K70.30 - Alcoholic cirrhosis of liver without ascites; I85.10 - Secondary esophageal varices without bleeding Status: Acute (5) Chronic anemia: Code(s): D64.9 - Anemia, unspecified Status: Acute (6) Pancreatic mass: Code(s): K86.89 - Other specified diseases of pancreas Status: Acute (7) Hypokalemia: Code(s): E87.6 - Hypokalemia Status: Acute (8) KARLY (acute kidney injury): Code(s): N17.9 - Acute kidney failure, unspecified Status: Acute (9) Compression fracture: Status: Acute (10) COPD (chronic obstructive pulmonary disease): Code(s): J44.9 - Chronic obstructive pulmonary disease, unspecified Status: Acute (11) Brain aneurysm: Code(s): I67.1 - Cerebral aneurysm, nonruptured Status: Acute DS: Summary Hospital Course Reason for hospitalization: 62yo female with chronic liver disease here for weakness. Please see H&P for details Hospital Course: Patient was confused on admission. Patient's liver enzymes are chronically elevated.?Lipase 560.? Patient was negative for influenza A/B and COVID.? Abdominal pelvis CT showed chronic severe ascites, cirrhosis, chronic pancreatitis increased size of encapsulated partially calcified cystic left-sided pancreatic head. Also had extensive patchy infiltrates. She underwent ultrasound-guided paracentesis with removal of 5 L. Studies were not consistent with infectious process. BCx negative. Gram stain from the pararcentesis was negative. MRI of the brain showed a 5 mm mass suprasellar cistern and small old infarcts in cerebellum. 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 She had age-indeterminate C7-T1 compression fractures noted as well. Neurology consulted. No fevers or cough to suggest occult PNA. GI was consulted. She was treated with Lactulose and Rifaximin. Propranolol held due to low BP. She had worsening abdominl distention so a repeat paracentesis ordered and another 5Liters were removed. Platelet count dropped to 90K range but remained stable at that level. She worked with PT/OT. She had KARLY with Cr 1.8 on admission and was essentially unchanged during her hospital course. It was felt that the patient had end-stage alcoholic liver disease alcoholic dementia. Code status was discussed with family in the change her to a DNR. Hospice care was discussed. Family would like the patient to be discharged to a skilled facility for therapy plans for hospice if she does not progress. Family in the room at time of discharge and all questions answered. Patient was able to be discharged to facility on 05/19/22. Status at Discharge Cognitive/behavioral status at discharge: Stable Time Spent with Patient Time attestation: Total time spent providing and/or coordinating discharge services: 36 minutes Time spent: Greater than 30 minutes Exam Narrative: AF 98.0 98/67 82 16 99% ra Gen - thin, cachectic, chronically ill female in NARD Chest - distant but clear BS, nml RR CV - RRR S1/S2 Abd - Soft, nondistended, +BS Ext - No pedal edema. scant SQ soft tissue Psych - Nml mood and affect Skin - Warm and dry DS: Data Data Completed and Pending Completed studies during hospitalization
[2022-05-19] MEDS: oxyCODONE HCL (*CRX) 5 MG TAB IR PO (15:18)
--- NOTE | 2022-05-19 16:58 | PC.NURSE ---
Called to give report to the nurse at [facility]. Call Center Receptionist transferred me to nurse's station. No answer. Left voicemail.
[2022-05-19 18:38] LABS: EDCOVIDSCREEN Negative (Negative)
[2022-05-22 18:36] LABS: Amylase Peritoneal Fluid 13 U/L
== END 2022-05-19 18:48 | DRG 433 ==
LOC: ANHED 16:37 → ANH3MED 20:38
PROVIDERS: Nurse Practitioner; Nurse Practitioner Family; Student in an Organized Health Care Education/Training Program; Admitting Provider Chiropractor; Emergency Provider Emergency Medicine; PCP Family Medicine; Visit Provider Internal Medicine
DX: K70.31 Alcoholic cirrhosis of liver with ascites (principal); E87.1 Hypo-osmolality and hyponatremia; I85.10 Secondary esophageal varices without bleeding; K86.1 Other chronic pancreatitis; G93.40 Encephalopathy, unspecified; F10.288 Alcohol dependence with other alcohol-induced disorder; F10.27 Alcohol dependence with alcohol-induced persisting dementia; N17.9 Acute kidney failure, unspecified; D64.9 Anemia, unspecified; E87.6 Hypokalemia; F10.20 Alcohol dependence, uncomplicated; F41.9 Anxiety disorder, unspecified; F17.210 Nicotine dependence, cigarettes, uncomplicated; I10 Essential (primary) hypertension; K21.9 Gastro-esophageal reflux disease without esophagitis; K86.89 Other specified diseases of pancreas; I67.1 Cerebral aneurysm, nonruptured; J44.9 Chronic obstructive pulmonary disease, unspecified; Z66 Do not resuscitate; Z20.822 Contact with and (suspected) exposure to COVID-19; Z86.73 Personal history of transient ischemic attack (TIA), and cerebral infarction without residual deficits
CPT/HCPCS: 36415; 36569; 49083; 70496; 70498; 70551; 74176; 80053; 80307; 81003; 82040; 82042; 82140; 82150; 82306; 82945; 82948; 83605; 83615; 83690; 83735; 84100; 84157; 84443; 85025; 85055; 85610; 85730; 87040; 87070; 87075; 87205; 87426; 87636; 88108; 88305; 89051; 92610; 93005; 96361; 96365; 96366; 96367; 96368; 96375; 96376; 97161; 97165; 99285; A9270; C1729; C1751; C9803; G0378; J0696; J2405; J3010; J3411; J3480; J7040; J7120; P9047; Q9967

== ENCOUNTER 2022-06-02 11:31 | Outpatient (CLI) | payer MEDICARE, MEDICAID, SELFPAY ==
--- NOTE | ~2022-06-02 | US_ITS ---
EXAMINATION: US paracentesis abd w/image DATE: 06/02/2022 13:23 INDICATION: Ascites. TECHNIQUE: The procedure and its risks, benefits, and alternatives were discussed with the patient. P otential risks discussed included bleeding and infection. The skin was prepped and draped in sterile fashion. 1% lidocaine was used for local anesthesia. Under ultrasound guidance, a 5 Fr catheter with trochar was advanced into the ascites in the left lower quadrant. Fluid was aspirated. The catheter w as removed, and a dressing was applied. There were no immediate complications. FINDINGS: Ultrasound images demonstrate ascites and the catheter within the fluid. IMPRESSION: 1. Successful ultrasound-guided paracentesis yielding 4300 mL of clear, yellow fluid. Reviewed, dictated and finalized at location A.
== END 2022-06-02 11:32 | disposition home or self-care (01) ==
LOC: ANHIMG 11:32
PROVIDERS: PCP Family Medicine; Visit Provider Internal Medicine
DX: K74.60 Unspecified cirrhosis of liver (principal)
CPT/HCPCS: 49083

== ENCOUNTER 2022-06-17 10:48 | Outpatient (CLI) | payer MEDICARE, MEDICAID, SELFPAY ==
--- NOTE | ~2022-06-17 | US_ITS ---
EXAMINATION: US paracentesis abd w/image DATE: 06/17/2022 12:03 INDICATION: Ascites. TECHNIQUE: The procedure and its risks and benefits were discussed with the patient. Potential risks discussed included bleeding and infection. The skin was prepped and draped in sterile fashion. 1% lid ocaine was used for local anesthesia. Under ultrasound guidance, a 5 Fr catheter with trochar was adv anced into the ascites in the right lower quadrant. Fluid was aspirated into vacuum bottles. The cath eter was removed, and a dressing was applied. There were no immediate complications. FINDINGS: Ultrasound images demonstrate ascites and the catheter within the fluid. IMPRESSION: 1. Successful ultrasound-guided paracentesis yielding 4600 mL of cloudy light yellow fluid. Reviewed, dictated and finalized at location A.
== END 2022-06-17 10:49 | disposition home or self-care (01) ==
LOC: ANHIMG 10:53
PROVIDERS: PCP Family Medicine
DX: K74.60 Unspecified cirrhosis of liver (principal)
CPT/HCPCS: 49083

== ENCOUNTER 2022-07-09 11:21 | Outpatient (CLI) | payer OTHER, SELFPAY ==
--- NOTE | ~2022-07-09 | US_ITS ---
EXAMINATION: US paracentesis abd w/image DATE: 07/09/2022 14:06 INDICATION: Ascites. TECHNIQUE: The procedure and its risks, benefits, and alternatives were discussed with the patient. P otential risks discussed included bleeding and infection. The skin was prepped and draped in sterile fashion. 1% lidocaine was used for local anesthesia. Under ultrasound guidance, a 5 Fr catheter with trochar was advanced into the ascites in the right lower quadrant. Fluid was aspirated. The catheter was removed, and a dressing was applied. There were no immediate complications. FINDINGS: Ultrasound images demonstrate ascites and the catheter within the fluid. IMPRESSION: 1. Successful ultrasound-guided paracentesis yielding 4100 mL of yellow fluid. Reviewed, dictated and finalized at location A.
[2022-07-09 12:32] LABS: Prothrombin Time 13.7 Seconds (11.1-14.7)
[2022-07-09 12:53] LABS: Mean Platelet Volume 9.4 fl (7.4-10.4); Platelet Count Result 285 k/mm3 (150-375)
== END 2022-07-09 11:22 | disposition home or self-care (01) ==
PROVIDERS: PCP Family Medicine; Referring Provider Radiology Diagnostic Radiology; Visit Provider Internal Medicine Adolescent Medicine
DX: K74.60 Unspecified cirrhosis of liver (principal)
CPT/HCPCS: 36415; 49083; 85049; 85610